=== PATIENT | male | born 1965 | race Caucasian/White ===

== ENCOUNTER 2016-11-12 13:16 | Emergency (ER) | payer OTHER ==
[2016-11-12 13:22] VITALS: BP 146/91; PULSE 95; TEMP 98.5; BMI 26.4
[2016-11-12] MEDS ORDERED: DIPHTH,PERTUSS(ACELL),TET 0.5 ML DISP.SYRIN IM ONE (13:26)
--- NOTE | 2016-11-12 13:39 | PDOC ---
Attending Attestation - Resident Resident Name: KaseyJuan - ED Attending Attestation I have performed the following: I have examined & evaluated the patient, The case was reviewed & discussed with the resident, I agree w/resident's findings & plan, Exceptions are as noted - HPI HPI: 11/12/16 13:34 51 yo M cut his left middle finger was cutting vegetables, and slipped. laceration to distal middle finger. pt is righthand dominant. happened last pm at 10 pm. last tetanus unknown. came today because this am when he took dressing off, was bleeding. no f/c no new numbness or tingling. pt is currently not working. - Physicial Exam PE: 11/12/16 13:37 awake alert nAD. lungs clear bilaterally. heart RRR no mrg. abd soft NT ND. skin: left middle finger with laceration, linear 1.5 cm to distal phalynx. no active bleeding distally n/v intact. flex,/ ext tendons intact at pip, dip. nuero: sensation and strenth normal. - Medical Decision Making 11/12/16 13:38 due to delay in presenation >12 hours, unable to suture finger due to risk of infection. plan sterile dressing bacitracin, doxycycline, and wrap. dc home tetanus given.
[2016-11-12] MEDS ORDERED: DOXYCYCLINE HYCLATE 100 MG CAPSULE PO ONE ×2 (13:40)
--- NOTE | 2016-11-12 14:06 | PDOC ---
History of Present Illness - General Chief Complaint: Laceration Stated Complaint: I CUT MY FINGER Time Seen by Provider: 11/12/16 13:21 - History of Present Illness Initial Comments: 11/12/16 13:45 Patient is a 51 year old right hand dominant male who presents with a left finger laceration. The patient states that he was cutting vegetables yesterday evening when he accidentally cut the tip of his 3rd digit. He reported significant bleeding with the initial cut. He states that he cleaned the wound with hydrogen peroxide and covered it with a bandaid. He states that earlier this morning, he removed the bandaid and the finger began bleeding once again prompting his visit to the ED today. He reports that his last tetanus shot was over 15 years ago. He denies any fevers, chills, numbness or tingling. Past History - Past Medical History Allergies/Adverse Reactions: Allergies Allergy/AdvReac Type Severity Reaction Status Date / Time Penicillins AdvReac Verified 11/12/16 13:17 Home Medications: Ambulatory Orders Doxycycline Hyclate 100 mg PO BID #10 capsule 11/12/16 Other medical history: HEP C - Psycho/Social/Smoking Cessation Hx Anxiety: No Suicidal Ideation: No Smoking History: Smoker current status UNK Hx Alcohol Use: Yes Drug/Substance Use Hx: No Substance Use Type: Alcohol, Marijuana Review of Systems - Review of Systems Constitutional: No: Chills, Fever Respiratory: No: Cough, Shortness of Breath Cardiac (ROS): No: Chest Pain, Palpitations ABD/GI: No: Constipated, Diarrhea, Nausea, Vomiting : No: Dysuria Integumentary: No: Rash Neurological: No: Headache, Numbness, Tingling, Weakness *Physical Exam - Vital Signs Last Vital Signs Temp Pulse Resp BP Pulse Ox 98.5 F 95 H 16 146/91 100 11/12/16 13:16 11/12/16 13:16 11/12/16 13:16 11/12/16 13:16 11/12/16 13:16 - Physical Exam Comments: 11/12/16 14:12 General Appearance: Nourished. No Apparent Distress Respiratory/Chest: Lungs Clear, Normal Breath Sounds. No Crackles, Rales, Rhonchi, Wheezing Cardiovascular: Regular Rhythm, Regular Rate. No Murmur, Gallop/S3, Gallop/S4 Gastrointestinal/Abdominal: Normal Bowel Sounds, Soft. No Guarding, Rebound, Tenderness Extremity: Normal Capillary Refill, 1 cm laceration to the radial aspect of the 3rd digit not crossing a joint. Sensation to light touch and temperature intact. Normal range of motion. Integumentary: Normal Color, Dry, Warm Neurologic: Fully Oriented, Alert, Normal Mood/Affect, Normal Response ED Treatment Course - Medications Given in the ED: ED Medications Discontinued Medications Generic Name Dose Route Start Last Admin Trade Name Sofia PRN Reason Stop Dose Admin Diphtheria/Tetanus/Acell Pertussis 0.5 ml 11/12/16 13:26 11/12/16 13:38 Boostrix - IM 11/12/16 13:27 0.5 ml .ONCE ONE Administration Medical Decision Making - Medical Decision Making 11/12/16 15:02 Patient is a 51 year old male who presents with a left 3rd digit laceration. Given that the patient sustained the laceration over 6 hours ago, he is not eligible to have sutures placed to reapproximate the wound. We will clean the injury and apply bacitracin with a non-stick dressing and wrap the wound. We will also update the patient's tetanus status as well as provide prophylactic antibiotics. 11/12/16 15:04 Wound was dressed approriately and the patient was provided proper wound care instructions. The patient voiced understanding of the plan and is agreeable. We feel comfortable discharging the patient home. *DC/Admit/Observation/Transfer Diagnosis at time of Disposition: Laceration of finger - Discharge Dispostion Disposition: HOME Condition at time of disposition: Stable - Prescriptions Prescriptions: Doxycycline Hyclate 100 mg PO BID #10 capsule - Referrals - Patient Instructions Printed Discharge Instructions: DI for Minor Laceration Additional Instructions: keep clean and dry for24 hours. clean with mild soap and water. for rebleeding, apply pressure for 5 - 7 minutes. you can apply bacitracin ointment twice dialy to wound, which can be purchased over the counter at any pharmacy. return for redness swelling. or any concerns or signs of infection. you should take doxycycline 100 mg twice daily x 5 days. you were given a tetanus shot today, so you will be covered for 5 years. followup with your regular doctor as needed. - Post Discharge Activity - Attestations Physician Attestion: 11/12/16 15:06 Dr. Juan Soto, attest that this document has been prepared under my direction and personally reviewed by me in its entirety. I further attest, that it accurately reflects all work, treatment, procedures and medical decision -making performed by me.
== END 2016-11-12 13:55 | disposition home or self-care (01) ==
LOC: FER 13:16
PROC: 3E0234Z Introduction of Serum, Toxoid and Vaccine into Muscle, Percutaneous Approach (ICD-10-PCS; principal; 2016-11-12)
DX: S61.213A Laceration without foreign body of left middle finger without damage to nail, initial encounter (principal); W26.0XXA Contact with knife, initial encounter; Y93.G1 Activity, food preparation and clean up; Y92.9 Unspecified place or not applicable; B19.20 Unspecified viral hepatitis C without hepatic coma
CPT/HCPCS: 90471; 90715; 99282-25

== ENCOUNTER 2016-11-19 19:07 | Emergency (ER) | payer OTHER ==
--- NOTE | 2016-11-19 19:32 | PDOC ---
Suture Removal/Wound Check HPI - History of Present Illness Chief Complaint: Revisit,Wound Recheck Stated Complaint: WOUND CHECK LEFT MIDDLE FINGER Time Seen by Provider: 11/19/16 19:12 - Onset of Previous Treatment Comment:: This 51-year-old man with no previous history of wound healing problems/ resistant organism colonization or infection was seen here 11/12/16 with left middle finger laceration. Presentation was delayed (greater than 12 hours) after patient had cut the finger while preparing food in his kitchen. Wound was cleansed/dressed and patient started on doxycycline 100 mg twice a day for 5 days (patient states that he has penicillin ALLERGYwas told that he had gastrointestinal symptoms after penicillin as a child. No history of rash or anaphylactic symptoms) Patient states that he has been taking his doxycycline. He notes significant gastrointestinal discomfort after each dose, especially after sun exposure. He has not had any rash/airway edema or respiratory symptoms. Over the last few days, he is noted increased edema and erythema of the area around the laceration. He has had brief episodes of bleeding but no purulent discharge. There has been no red streaking or pain with flexion/extension of the finger. He denies fever/chills. Past History - Past Medical History Allergies/Adverse Reactions: Allergies Penicillins Adverse Reaction (Verified 11/12/16 13:17) Home Medications: Ambulatory Orders Doxycycline Monohydrate [Monodox] 100 mg PO BID #10 capsule 11/13/16 Cephalexin Monohydrate [Keflex -] 500 mg PO Q8H #15 capsule 11/19/16 - Immunization History Tetanus Status: Less than 5 years - Social History Smoking Status: Smoker current status UNK Suture Removal/Wound Check PE - Physical Exam Laceration/Wound Check Symptoms: reports: Redness Comments: GENERAL: Adult male, alert and oriented 3, in no acute distress ENT Dry mucous membranes. LUNGS: Breath sounds equal, clear to auscultation bilaterally. No wheezes, and no crackles. HEART:Regular rate and rhythm, normal S1 and S2 without murmur, rub or gallop. EXTREMITIES: Left third finger2.5 cm healing horizontal laceration of the distal phalanx, nonbleeding/no purulent discharge/nonfluctuant 2 cm surrounding erythema/edema without fluctuance No lymphangitic streaking/no DIP or PIP joint inflammation No pain on passive or active flexion/extension of the digit Remainder of the extremity exam is normal. NEUROLOGICAL: Cranial nerves II through XII grossly intact. Normal speech. No focal neurological deficits. *Review of Systems - Review of Systems Able to Perform ROS?: Yes Comments:: 12 point review of systems is negative except for what is noted in the history of present illness Medical Decision Making - Medical Decision Making This 51-year-old man with a history of laceration of the distal phalanx of the left third finger, presented one week ago more than 12 hours after sustaining a laceration. Wound was dressed, tetanus prophylaxis given and patient started on doxycycline Patient reports erythema/edema around the wound. On exam, there is no fluctuance or purulent drainage. However, the area around the wound is inflamed. Therefore, patient will be kept on antibiotics with follow-up with his general doctor. Since he has had significant gastrointestinal discomfort after doxycycline doses, we will switch to Keflex (patient did not have anaphylactic ALLERGIC reaction to penicillin). First dose of 500 mg will be given here in the ER. Patient should follow-up with his own general doctor; he should report to the emergency room if he has red streaking/increased pain/swelling/fever and especially if he has increased pain on movement of the finger. *DC/Admit/Observation/Transfer Diagnosis at time of Disposition: Cellulitis of finger of left hand - Discharge Dispostion Disposition: HOME Condition at time of disposition: Stable - Prescriptions Prescriptions: Cephalexin Monohydrate [Keflex -] 500 mg PO Q8H #15 capsule - Referrals Referrals: Romelia Ruelas MD [Primary Care Provider] - 1 week - Patient Instructions Printed Discharge Instructions: DI for Wound Infection Additional Instructions: Stop doxycycline Keep in cool environment/drink plenty of water Begin Keflex 500 mg 3 times a day for 5 days Continue wound care as previously Elevate left hand as much as possible Return to ER if you have worsening pain/swelling/redness or develop fever Follow-up with your general doctor within the next 5 days
[2016-11-19] MEDS ORDERED: CEPHALEXIN MONOHYDRATE 500 MG CAPSULE (UD) ONE (19:49)
[2016-11-19] MEDS ORDERED: CEPHALEXIN MONOHYDRATE 500 MG CAPSULE (UD) PO ONE (19:54)
[2016-11-19 19:55] VITALS: BP 135/90; PULSE 110; TEMP 98.6; BMI 26.2
== END 2016-11-19 19:55 | disposition home or self-care (01) ==
LOC: FER 19:07
DX: Z48.01 Encounter for change or removal of surgical wound dressing (principal)
CPT/HCPCS: 99281-25

== ENCOUNTER 2017-09-19 11:16 | Inpatient (IN) | payer OTHER ==
[2017-09-19] MEDS ORDERED: chlordiazePOXIDE HCL 25 MG CAPSULE PO ONE ×2 (11:21→14:10)
--- NOTE | 2017-09-19 11:29 | PDOC ---
History of Present Illness - General Chief Complaint: Rectal Bleed Stated Complaint: ANEMIA Time Seen by Provider: 09/19/17 11:19 - History of Present Illness Initial Comments: 09/19/17 15:01 Chief complaint: Lower abdominal pain and diarrhea History of present illness: Intermittent crampy lower abdominal pain associated with loose [place] stools. No marco melena or blood. Saw primary care physician who noted H&H of 7 and 24, and referred to the emergency room for further workup. Review of systems: Denies chest pain, shortness of breath, vomiting. Denies visual or focal neurologic symptoms, lightheadedness or dizziness, unsteadiness of gait Past medical history: Hepatitis C treated several years ago, virus now undetectable. Heavy alcohol abuse. Hemorrhoids in the past. No known cardiac disease, other GI disease, or diabetes. Social history: Tobacco and alcohol abuse, but no known drug history. 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 Marked pallor is present Afebrile, vital signs stable PERRLA, fundi benign, conjunctivae pale, ENT clear Neck supple without bruit mass or nodes Lungs clear with full breath sounds bilaterally CV: Mildly tachycardic 102/m, no murmurs rubs or gallops, pulses full. No JVD or edema Abdomen mildly distended but soft without mass or organomegaly. There is mild tenderness over the entire mid and lower abdomen without localization. No guarding or rebound Rectal exam: No masses or tenderness. No stool present in the ampulla, but small amount of serosanguineous fluid present on the fingertip. Neurological C2 to 12 intact. Strength full and symmetric. No focal sensory or motor deficits. Gait stable and unimpaired. No asterixis No CCE Skin clear, no rash, adequate turgor and wet mucous membranes. No telangiectasias or palmar erythema. Impression: GI bleed, anemia, probably stabilized. Most likely upper GI in origin and related to alcohol consumption. Plan: Type and cross, CBC and chemistries, monitoring and observation. GI consultation. Past History - Past Medical History Allergies/Adverse Reactions: Allergies Allergy/AdvReac Type Severity Reaction Status Date / Time Penicillins AdvReac Verified 09/19/17 11:20 Home Medications: Ambulatory Orders Fexofenadine/Pseudoephedrine [Melissa-D 12 Hour Tablet] 1 each PO DAILY - Immunization History TDAP Vaccination: Yes (11/13/2016) - Suicide/Smoking/Psychosocial Hx Smoking History: Smoker current status UNK Have you smoked in the past 12 months: Yes 'Breaking Loose' booklet given: 11/19/16 Hx Alcohol Use: Yes Drug/Substance Use Hx: Yes Substance Use Type: Alcohol, Marijuana ED Treatment Course - LABORATORY CBC & Chemistry Diagram: 09/19/17 11:19 09/19/17 12:49 Medical Decision Making - Medical Decision Making 09/19/17 13:38 H&H is 7 and 23, seemingly stable from yesterday, when it was 7 and 24 done by his primary physician. Hemodynamically stable with a stable blood pressure No significant abdominal pain. Small amount of serosanguineous fluid on rectal exam. No bowel movements recently. Abdomen soft and nontender. 09/19/17 15:00 Blood for type and screen. Admitted to hospitalist at [facility], consultation arranged with Dr. Chiang, GI. Consider transfusion if H&H continues to drop. Otherwise GI workup. *DC/Admit/Observation/Transfer Diagnosis at time of Disposition: GI bleed Qualifiers: GI bleed type/associated pathology: unspecified gastrointestinal hemorrhage type Qualified Code(s): K92.2 - Gastrointestinal hemorrhage, unspecified - Discharge Dispostion Decision to Admit order: Yes - Referrals - Patient Instructions - Post Discharge Activity
[2017-09-19] MEDS ORDERED: PANTOPRAZOLE SODIUM 40 MG in SODIUM CHLORIDE 100 ML IVPB ONE (12:08)
[2017-09-19] MEDS ORDERED: chlordiazePOXIDE HCL 25 MG CAPSULE ONE ×2 (12:55→14:34)
[2017-09-19] MEDS ORDERED: PANTOPRAZOLE SODIUM 40 MG VIAL ONE (12:56)
[2017-09-19 13:07] LABS: INR 1.13 (0.82-1.09); PROTHROMBIN TIME (PATIENT) 12.6 SEC (10.2-13.0)
[2017-09-19 13:08] LABS: BASO % 0.7 % (0-2.0); EOS % 2.6 % (0-4.5); HEMOGLOBIN 7.1 GM/dl (11.7-16.9); LYMPH % 13.5 % (8-40); MCH 22.4 pg (25.7-33.7); MCHC 30.6 g/dl (32.0-35.9); MEAN CELL VOLUME 73.3 fl (80-96); MONO % 13.3 % (3.8-10.2); NEUT % 69.9 % (42.8-82.8); PLATELET COUNT 364 K/MM3 (134-434); RBC 3.14 M/mm3 (4.00-5.60); RDW 19.4 % (11.9-15.9); WHITE BLOOD COUNT 7.3 K/mm3 (4.0-10.8)
[2017-09-19 13:10] LABS: ADD RBC MORPHOLOGY YES
[2017-09-19 13:12] LABS: ALBUMIN 2.3 g/dl (3.5-5.0); ALK PHOS 82 U/L (32-92); ANION GAP 9 (8-16); BILIRUBIN,TOTAL 1.4 mg/dl (0.2-1.0); BLOOD UREA NITROGEN 12 mg/dl (7-18); CALCIUM 7.6 mg/dl (8.4-10.2); CHLORIDE 99 mmol/L (98-107); CO2 23 mmol/L (22-28); GLUCOSE,RANDOM 120 mg/dl (74-106); POTASSIUM 3.8 mmol/L (3.5-5.1); SGOT/AST 36 U/L (10-42); SGPT/ALT 22 U/L (10-40); SODIUM 131 mmol/L (136-145); TOT PROT 6.4 g/dl (6.4-8.3)
[2017-09-19 13:27] LABS: CREATININE < 0.8 mg/dl (0.6-1.3)
[2017-09-19 14:41] LABS: ANISOCYTOSIS 1+
[2017-09-19 14:48] LABS: PH,URINE 6.5 (4.5-8); URINE APPEARANCE Clear; URINE BILIRUBIN Negative (NEGATIVE); URINE GLUCOSE (UA) Negative (NEGATIVE); URINE KETONE Negative (NEGATIVE); URINE LEUK ESTERASE Negative (NEGATIVE); URINE NITRITE Negative (NEGATIVE); URINE PROTEIN Negative (NEGATIVE)
[2017-09-19 14:49] LABS: URINE COLOR AMBER
[2017-09-19] MEDS ORDERED: THIAMINE HCL 200 MG/2 ML VIAL IM ONE (15:35)
[2017-09-19] MEDS ORDERED: THIAMINE HCL 200 MG/2 ML VIAL ONE (16:10)
--- NOTE | 2017-09-19 18:50 | HP ---
CHIEF COMPLAINT: " Was sent by his PCP for blood transfusion for symptomatic anemia" PCP: Dr. Ruelas HISTORY OF PRESENT ILLNESS: Patient is a 52 year old male was sent by his PCP for blood transfusion for symptomatic anemia. As per the patient, he went to his PCP for a physical yesterday and got a call from the doctor today recommending him to come to the ED for blood transfusion. Patient reports that he has been feeling very weak and tired since 3 months, getting worse since a couple of weeks. Also complaining of having diarrhoea since few weeks, 6-7 episodes/day fowl smelling, no blood noticed, passing a lot of gas. Has never done an endoscopy or colonoscopy in the past. Has chronic back pain for which he has been taking Aleve daily for few weeks. Denies chest pain, sob, palpitation, headache, loc, abdominal pain, nausea or vomiting. Bladder habit normal. Sleep normal. Appetite decreased but drinking plenty of fluids. Patient initially went to [facility] ED and was transferred here for a possible colonoscopy/EGD. ER course was notable for: (1) Afebrile, tachycardic to 108 bpm, Hypotensive, H/H 7.05/01 (2) Librium, IV fluids Recent Travel: None PAST MEDICAL HISTORY: Hepatitis C (completed treatment); Alcohol abuse; Hemorrhoids; BCC PAST SURGICAL HISTORY: Moh's surgery for BCC Social History: Smoking: Quit 2 yrs ago, smoked for 4-5 yrs; 1 pack/day Alcohol: Was sober/AA for 20 yrs and started drinking daily- 3-4 drinks of vodka /day Drugs: Denies Family History: Non contributory Allergies Penicillins Adverse Reaction (Verified 09/19/17 11:20) HOME MEDICATIONS: Home Medications Medication Instructions Recorded Fexofenadine/Pseudoephedrine 1 each PO DAILY 09/19/17 [Melissa-D 12 Hour Tablet] REVIEW OF SYSTEMS CONSTITUTIONAL: Absent: fever, chills, diaphoresis, generalized weakness, malaise, loss of appetite, weight change HEENT: Absent: rhinorrhea, nasal congestion, throat pain, throat swelling, difficulty swallowing, mouth swelling, ear pain, eye pain, visual changes CARDIOVASCULAR: Absent: chest pain, syncope, palpitations, irregular heart rate, lightheadedness , peripheral edema RESPIRATORY: Absent: cough, shortness of breath, dyspnea with exertion, orthopnea, wheezing, stridor, hemoptysis GASTROINTESTINAL: Absent: abdominal pain, abdominal distension, nausea, vomiting, diarrhea, constipation, melena, hematochezia GENITOURINARY: Absent: dysuria, frequency, urgency, hesitancy, hematuria, flank pain, genital pain MUSCULOSKELETAL: Absent: myalgia, arthralgia, joint swelling, back pain, neck pain SKIN: Absent: rash, itching, pallor HEMATOLOGIC/IMMUNOLOGIC: Absent: easy bleeding, easy bruising, lymphadenopathy, frequent infections ENDOCRINE: Absent: unexplained weight gain, unexplained weight loss, heat intolerance, cold intolerance NEUROLOGIC: Absent: headache, focal weakness or paresthesias, dizziness, unsteady gait, seizure, mental status changes, bladder or bowel incontinence PSYCHIATRIC: Absent: anxiety, depression, suicidal or homicidal ideation, hallucinations. PHYSICAL EXAMINATION Vital Signs - 24 hr 09/19/17 09/19/17 09/19/17 11:18 14:30 17:15 Temperature 99.3 F 99.6 F 98.6 F Pulse Rate 113 H 108 H Pulse Rate [ 110 H Left Radial] Respiratory 20 18 14 Rate Blood Pressure 112/77 108/70 Blood Pressure 106/63 [Left Arm] O2 Sat by Pulse 95 96 96 Oximetry (%) GENERAL: Middle aged male, lying comfortably in bed, Awake, alert, and fully oriented, in no acute distress. HEAD: Normal with no signs of trauma. EYES: EOM intact, Pallor +, no icterus. EARS, NOSE, THROAT: Ears normal. Dry mucous membranes. NECK: Supple. LUNGS: B/L Breath sounds equal, clear to auscultation bilaterally. No wheezes, and no crackles. No accessory muscle use. HEART: Tachycardic, Regular rate and rhythm, normal S1 and S2 without murmur. ABDOMEN: Soft, nontender, not distended, normoactive bowel sounds, no guarding, no rebound, no masses. No hepatomegaly or splenomegaly. MUSCULOSKELETAL: Normal range of motion at all joints. No bony deformities or tenderness. No CVA tenderness. UPPER EXTREMITIES: 2+ pulses, warm, well-perfused. No cyanosis. No clubbing. No peripheral edema. LOWER EXTREMITIES: 2+ pulses, warm, well-perfused. No calf tenderness. No peripheral edema. NEUROLOGICAL: No facial droop, ext tremors + Cranial nerves II-XII intact. Normal speech. Gait not observed. PSYCHIATRIC: Cooperative. Good eye contact. Appropriate mood and affect. SKIN: Warm, dry, normal turgor, no rashes or lesions noted, normal capillary refill. Laboratory Results - last 24 hr 09/19/17 09/19/17 09/19/17 11:19 11:19 12:25 WBC 7.3 RBC 3.14 L Hgb 7.1 L Hct 23.0 L MCV 73.3 L MCH 22.4 L MCHC 30.6 L RDW 19.4 H Plt Count 364 MPV 7.0 L Absolute Neuts (auto) 5.0 Neutrophils % 69.9 Lymphocytes % 13.5 Monocytes % 13.3 H Eosinophils % 2.6 Basophils % 0.7 Hypochromia 2+ Anisocytosis 1+ Microcytosis Few PT with INR INR Sodium Potassium Chloride Carbon Dioxide Anion Gap BUN Creatinine Creat Clearance w eGFR Random Glucose Calcium Total Bilirubin AST ALT Alkaline Phosphatase Creatine Kinase Troponin I Total Protein Albumin Lipase Urine Color Urine Appearance Urine pH Ur Specific [place] Urine Protein Urine Glucose (UA) Urine Ketones Urine Blood Urine Nitrite Urine Bilirubin Urine Urobilinogen Ur Leukocyte Esterase Stool Occult Blood Positive Blood Type O POSITIVE Antibody Screen Negative 09/19/17 09/19/17 09/19/17 12:49 12:49 12:49 WBC RBC Hgb Hct MCV MCH MCHC RDW Plt Count MPV Absolute Neuts (auto) Neutrophils % Lymphocytes % Monocytes % Eosinophils % Basophils % Hypochromia Anisocytosis Microcytosis PT with INR 12.6 INR 1.13 Sodium 131 L Potassium 3.8 Chloride 99 Carbon Dioxide 23 Anion Gap 9 BUN 12 Creatinine < 0.8 Creat Clearance w eGFR > 60 Random Glucose 120 H Calcium 7.6 L Total Bilirubin 1.4 H AST 36 ALT 22 Alkaline Phosphatase 82 Creatine Kinase 62 Troponin I < 0.03 Total Protein 6.4 Albumin 2.3 L Lipase Urine Color Urine Appearance Urine pH Ur Specific [place] Urine Protein Urine Glucose (UA) Urine Ketones Urine Blood Urine Nitrite Urine Bilirubin Urine Urobilinogen Ur Leukocyte Esterase Stool Occult Blood Blood Type Antibody Screen 09/19/17 09/19/17 12:49 14:40 WBC RBC Hgb Hct MCV MCH MCHC RDW Plt Count MPV Absolute Neuts (auto) Neutrophils % Lymphocytes % Monocytes % Eosinophils % Basophils % Hypochromia Anisocytosis Microcytosis PT with INR INR Sodium Potassium Chloride Carbon Dioxide Anion Gap BUN Creatinine Creat Clearance w eGFR Random Glucose Calcium Total Bilirubin AST ALT Alkaline Phosphatase Creatine Kinase Troponin I Total Protein Albumin Lipase 74 Urine Color [place] Urine Appearance Clear Urine pH 6.5 Ur Specific [place] 1.020 Urine Protein Negative Urine Glucose (UA) Negative Urine Ketones Negative Urine Blood Negative Urine Nitrite Negative Urine Bilirubin Negative Urine Urobilinogen 1.0 Ur Leukocyte Esterase Negative Stool Occult Blood Blood Type Antibody Screen ASSESSMENT/PLAN: Patient is a 52 year old male with significant past medical history of Hepatitis C (completed treatment); Alcohol abuse; Hemorrhoids; BCC was sent by his PCP for blood transfusion for symptomatic anemia. # Symptomatic anemia requiring Blood transfusion likely secondary to UGI bleed H/H 7.05/01; stool occult positive; Patient is not actively bleeding NPO Type and screen Transfuse one unit of blood, repeat CBC after an hour, transfuse another unit if needed IV NS @ 100 mls/hr Dr. Chiang consulted # UGI bleed vs NSAID induced GI bleed NPO IV fluids Watch for active bleeding Never had a colonoscopy or endoscopy in the past Alcohol cessation/ NSAID cessation # Hyponatremia likely secondary to poor PO intake Will hydrate with IV fluids. Repeat BMP in the AM. # Alcohol abuse Drinks alcohol daily Received Librium in the ED CIWA score - 2 at this time; patient is not withdrawing. Start Librium protocol if he starts withdrawing Alcohol cessation counseling # Diarrhoea No recent h/o abx use Could be viral vs infectious Stool cultures/ova/parasite # Hep C Treatment completed in the year 1999 with undetectable viral load. # FEN IV NS @ 100mls/hr Electrolytes WNL NPO # Prophylaxis For DVT: ON Scd's, no heparin given at this time given the anemia For GI: On Protonix 40mg IV BID # Code Status: Full Code # Dispo: Admitted in Tele. Duration of stay unknown. Illness, Investigation and Plan of care explained to the patient and his family. They verbalized understanding. Case discussed with Dr. Pierce Visit type - Emergency Visit Emergency Visit: Yes ED Registration Date: 09/19/17 Care time: The patient presented to the Emergency Department on the above date and was hospitalized for further evaluation of their emergent condition. - New Patient This patient is new to me today: Yes Date on this admission: 09/19/17 - Critical Care Critical Care patient: No Hospitalist Screening - Colonoscopy Questionnaire Colonoscopy Questionnaire: Colonoscopy Questionnaire - Patient: 50 - 75 years old and never had a screening colonoscopy: Unknown History of colon or rectal polyps, or CA: Unknown History of IBD, Crohn's disease or UC: Unknown History of abdominal radiation therapy as a child: Unknown - Relative: 1 with colon or rectal CA, or polyps at age 60 or younger: Unknown Colon or rectal CA diagnosed at age 45 or younger: Unknown Multiple relatives with colon or rectal CA: Unknown - Outcome: Screening Result: Negative Screen
[2017-09-19] MEDS: SODIUM CHLORIDE 1,000 ML IV SCH (19:30)
--- NOTE | 2017-09-19 19:34 | PN ---
Teaching Attending Note Name of Resident: Elyssa Centeno ATTENDING PHYSICIAN STATEMENT I saw and evaluated the patient. I reviewed the resident's note and discussed the case with the resident. I agree with the resident's findings and plan as documented. SUBJECTIVE: Patient is a 52 year old man with his of alcohol abuse, chronic back pain ( takes Alleve daily) and hepatitis C disease (treated with undetectable virus now ) presenting with weakness, severe anemia and loose bowel movement. has intermittent crampy lower abdominal pain associated with loose stools but no melena or blood. Saw primary care physician who noted hematocrit of 24, and referred to the emergency room for further workup. He went to [place] [facility] where his stool hemoccult test was positive and he was then transferred here for blood transfusion and EGD/colonoscopy. He denies chest pain, shortness of breath, or vomiting. OBJECTIVE: Alert, weak and in no acute respiratory distress. Vital Signs Period Temp Pulse Resp BP Sys/Orantes Pulse Ox Last 24 Hr 98.6 F-99.6 F 108-113 14-20 106-112/63-77 95-96 HEENT: No Jaundice, eye redness or discharge; Pallor; PERRLA, EOMI. Normocephalic, atraumatic. External ears are normal and hearing is grossly intact. No nasal discharge. Neck: Supple, nontender. No palpable adenopathy or thyromegaly. No JVD Chest: Good effort. Clear to auscultation and percussion. Heart: Tachycardia. No S3, rub or murmur Abdomen: Not distended, soft, nontender and no HSM. No rebound or guarding. Normoactive bowel sounds. Ext: Peripheral pulses intact. No leg edema. Skin: Warm and dry. No petechiae, rash or ecchymosis. Neuro: Alert. Oriented x3. CN 2-12 grossly intact. Sensation grossly intact in all four extremities and DTR are symmetric. Current Medications Generic Name Dose Route Start Last Admin Trade Name Freq PRN Reason Stop Dose Admin Sodium Chloride 1,000 mls @ 100 mls/hr 09/19/17 19:30 Normal Saline - IV ASDIR DEMETRICE Pantoprazole Sodium 40 mg 09/19/17 22:00 Protonix Iv IVPUSH BID DEMETRICE Home Medications Medication Instructions Recorded Fexofenadine/Pseudoephedrine 1 each PO DAILY 09/19/17 [Melissa-D 12 Hour Tablet] Abnormal Lab Results 09/19/17 09/19/17 09/19/17 11:19 11:19 12:49 RBC 3.14 L Hgb 7.1 L Hct 23.0 L MCV 73.3 L MCH 22.4 L MCHC 30.6 L RDW 19.4 H MPV 7.0 L Monocytes % 13.3 H Sodium 131 L Random Glucose 120 H Calcium 7.6 L Total Bilirubin 1.4 H Albumin 2.3 L Crossmatch See Detail ASSESSMENT AND PLAN: 1. GI Bleeding - Patient with severe low MCV anemia due to GI bleeding. Precise site of bleeding is unclear. In the absence of overt features of advanced liver disease/portal hypertension it is likely that NSAID-induced ulcers is the most probable cause of bleeding. Will get a plain CT of his abdomen, give IV NS to correct hypotension, protonix 40 mg IV q 12 hours and transfuse 1 unit PRBC. Subsequently will benefit from Venofer 500mg IV X two doses to correct iron deficiency - thus enabling him to increase his red cell mass quickly and thus preempt future blood transfusions. Keep him NPO for EGD in am. CXR shows no acute pathology. Will get EKG. Patient counseled to avoid NSAIDS. 2. Alcohol abuse - Will implement [facility] alcohol withdrawal protocol, fall precautions, give him folic acid and then thiamine once he gets some calories. Will refer to alcohol detox upon discharge. 3. Hyponatremia -Likely due to ingestion of excess "free water" from alcohol and not eating enough to provide solutes for excretion of obligatory free water. Will restrict free water intake and provide adequate nutritional support. 4. DVT prophylaxis - SCD 5. Advance directives - Full code
[2017-09-19] MEDS ORDERED: chlordiazePOXIDE HCL 25 MG CAPSULE PO PRN (21:12)
[2017-09-19] MEDS: PANTOPRAZOLE SODIUM 40 MG VIAL IVPUSH SCH (22:29)
[2017-09-19] MEDS: chlordiazePOXIDE HCL 25 MG CAPSULE PO SCH (22:30)
[2017-09-20 08:56] LABS: ANION GAP 8 (8-16); BLOOD UREA NITROGEN 8 mg/dL (7-18); CALCIUM 7.5 mg/dL (8.5-10.1); CHLORIDE 107 mmol/L (98-107); CO2 24 mmol/L (21-32); CREATININE 0.6 mg/dL (0.7-1.3); GLUCOSE,RANDOM 103 mg/dL (74-106); POTASSIUM 3.6 mmol/L (3.5-5.1); SODIUM 139 mmol/L (136-145)
[2017-09-20 09:01] LABS: HEMATOCRIT 22.2 % (35.4-49); MCH 23.2 pg (25.7-33.7); PLATELET COUNT 290 K/MM3 (134-434); RBC 2.96 M/mm3 (4.00-5.60); WHITE BLOOD COUNT 4.3 K/mm3 (4.0-10.0)
[2017-09-20 10:16] LABS: HEMOGLOBIN 6.9 GM/dL (11.7-16.9)
[2017-09-20] MEDS: PANTOPRAZOLE SODIUM 40 MG VIAL IVPUSH SCH ×2 (10:35→22:02)
--- NOTE | 2017-09-20 11:12 | EKG ---
Test Reason : Blood Pressure : / mmHG Vent. Rate : 098 BPM Atrial Rate : 098 BPM P-R Int : 160 ms QRS Dur : 106 ms QT Int : 416 ms P-R-T Axes : 041 050 063 degrees QTc Int : 531 ms NORMAL SINUS RHYTHM PROLONGED QT ABNORMAL ECG WHEN COMPARED WITH ECG OF 19-SEP-2017 15:19, NO SIGNIFICANT CHANGE WAS FOUND Confirmed by OMAR MILLER MD ([id number]) on 09/20/2017 11:12:07 AM Referred By: [facility] PEREZ [facility] Confirmed By:OMAR MILLER MD
--- NOTE | 2017-09-20 11:13 | PN ---
Physical Exam: SUBJECTIVE: Patient seen and examined. Pt said he feels stronger. Received one unit of blood. No fevers, no abdominal pain or nausea. OBJECTIVE: Vital Signs Period Temp Pulse Resp BP Sys/Orantes Pulse Ox Last 24 Hr 98.5 F-99.6 F 106-113 14-20 106-112/62-77 92-96 Vital Signs Temp 98.5 F 09/19/17 23:00 Pulse 106 H 09/19/17 19:26 Resp 20 09/20/17 09:00 BP 110/62 09/19/17 19:26 Pulse Ox 92 L 09/20/17 09:00 Intake & Output 09/19/17 09/20/17 09/20/17 23:59 11:59 23:59 Intake Total 360 Balance 360 Weight 89.358 kg Intake: Oral 360 Other: Voiding Method Urinal Urinal # Unmeasured Voids Void 1 Height 1.78 m Body Mass Index (BMI) 28.3 Vital Signs Temp 98.5 F 09/19/17 23:00 Pulse 106 H 09/19/17 19:26 Resp 20 09/20/17 09:00 BP 110/62 09/19/17 19:26 Pulse Ox 92 L 09/20/17 09:00 Intake & Output 09/19/17 09/20/17 09/20/17 23:59 11:59 23:59 Intake Total 360 Balance 360 Weight 89.358 kg Intake: Oral 360 Other: Voiding Method Urinal Urinal # Unmeasured Voids Void 1 Height 1.78 m Body Mass Index (BMI) 28.3 GENERAL: The patient is awake, alert, and fully oriented, in no acute respiratory or painful distress. HEAD: Normal with no signs of trauma. EYES: pale conjunctiva LUNGS: Breath sounds equal, clear to auscultation bilaterally, no wheezes, no crackles HEART: tachycardic, S1, S2 without murmur, rub or gallop. ABDOMEN: Firm, nontender, enlarged, normoactive bowel sounds, no guarding EXTREMITIES: 2+ pulses, warm, well-perfused, no edema. NEUROLOGICAL:AAOx3, fine tremors on outstretched arms bilaterally CBC, BMP 09/20/17 05:27 09/20/17 06:00 Laboratory Results - last 24 hr 09/19/17 09/19/17 09/19/17 11:19 11:19 12:25 WBC 7.3 RBC 3.14 L Hgb 7.1 L Hct 23.0 L MCV 73.3 L MCH 22.4 L MCHC 30.6 L RDW 19.4 H Plt Count 364 MPV 7.0 L Absolute Neuts (auto) 5.0 Neutrophils % 69.9 Lymphocytes % 13.5 Monocytes % 13.3 H Eosinophils % 2.6 Basophils % 0.7 Hypochromia 2+ Anisocytosis 1+ Microcytosis Few PT with INR INR Sodium Potassium Chloride Carbon Dioxide Anion Gap BUN Creatinine Creat Clearance w eGFR Random Glucose Calcium Ferritin Total Bilirubin AST ALT Alkaline Phosphatase Creatine Kinase Troponin I Total Protein Albumin Lipase Urine Color Urine Appearance Urine pH Ur Specific [place] Urine Protein Urine Glucose (UA) Urine Ketones Urine Blood Urine Nitrite Urine Bilirubin Urine Urobilinogen Ur Leukocyte Esterase Stool Occult Blood Positive Blood Type O POSITIVE Antibody Screen Negative Crossmatch See Detail 09/19/17 09/19/17 09/19/17 12:49 12:49 12:49 WBC RBC Hgb Hct MCV MCH MCHC RDW Plt Count MPV Absolute Neuts (auto) Neutrophils % Lymphocytes % Monocytes % Eosinophils % Basophils % Hypochromia Anisocytosis Microcytosis PT with INR 12.6 INR 1.13 Sodium 131 L Potassium 3.8 Chloride 99 Carbon Dioxide 23 Anion Gap 9 BUN 12 Creatinine < 0.8 Creat Clearance w eGFR > 60 Random Glucose 120 H Calcium 7.6 L Ferritin Total Bilirubin 1.4 H AST 36 ALT 22 Alkaline Phosphatase 82 Creatine Kinase 62 Troponin I < 0.03 Total Protein 6.4 Albumin 2.3 L Lipase Urine Color Urine Appearance Urine pH Ur Specific [place] Urine Protein Urine Glucose (UA) Urine Ketones Urine Blood Urine Nitrite Urine Bilirubin Urine Urobilinogen Ur Leukocyte Esterase Stool Occult Blood Blood Type Antibody Screen Crossmatch 09/19/17 09/19/17 09/19/17 12:49 14:40 20:00 WBC RBC Hgb Hct MCV MCH MCHC RDW Plt Count MPV Absolute Neuts (auto) Neutrophils % Lymphocytes % Monocytes % Eosinophils % Basophils % Hypochromia Anisocytosis Microcytosis PT with INR INR Sodium Potassium Chloride Carbon Dioxide Anion Gap BUN Creatinine Creat Clearance w eGFR Random Glucose Calcium Ferritin Total Bilirubin AST ALT Alkaline Phosphatase Creatine Kinase Troponin I Total Protein Albumin Lipase 74 Urine Color [place] Urine Appearance Clear Urine pH 6.5 Ur Specific [place] 1.020 Urine Protein Negative Urine Glucose (UA) Negative Urine Ketones Negative Urine Blood Negative Urine Nitrite Negative Urine Bilirubin Negative Urine Urobilinogen 1.0 Ur Leukocyte Esterase Negative Stool Occult Blood Blood Type O POSITIVE Antibody Screen Negative Crossmatch 09/20/17 09/20/17 09/20/17 05:27 06:00 06:00 WBC 4.3 RBC 2.96 L Hgb 6.9 L* Hct 22.2 L MCV 75.0 L MCH 23.2 L MCHC 31.0 L RDW 21.0 H Plt Count 290 MPV 7.0 L Absolute Neuts (auto) Neutrophils % Lymphocytes % Monocytes % Eosinophils % Basophils % Hypochromia Anisocytosis Microcytosis PT with INR INR Sodium 139 Potassium 3.6 Chloride 107 Carbon Dioxide 24 Anion Gap 8 BUN 8 Creatinine 0.6 L Creat Clearance w eGFR Random Glucose 103 Calcium 7.5 L Ferritin 9.5 L Total Bilirubin AST ALT Alkaline Phosphatase Creatine Kinase Troponin I Total Protein Albumin Lipase Urine Color Urine Appearance Urine pH Ur Specific [place] Urine Protein Urine Glucose (UA) Urine Ketones Urine Blood Urine Nitrite Urine Bilirubin Urine Urobilinogen Ur Leukocyte Esterase Stool Occult Blood Blood Type Antibody Screen Crossmatch Active Medications Current Medications Chlordiazepoxide HCl (Librium -) 50 mg PO [id number] DEMETRICE Stop: 09/20/17 17:01 Last Admin: 09/20/17 12:00 Dose: 50 mg Chlordiazepoxide HCl (Librium -) 25 mg PO Q4R-[id number] DEMETRICE Stop: 09/21/17 17:01 Chlordiazepoxide HCl (Librium -) 15 mg PO [id number] DEMETRICE Stop: 09/22/17 17:01 Chlordiazepoxide HCl (Librium -) 25 mg PO Q4H PRN PRN Reason: WITHDRAWAL(CONT SUBST) Stop: 09/22/17 21:11 Sodium Chloride (Normal Saline -) 1,000 mls @ 100 mls/hr IV ASDIR DEMETRICE Last Admin: 09/19/17 19:30 Dose: 100 mls/hr Metronidazole (Flagyl 500mg Premixed Ivpb -) 500 mg in 100 mls @ 100 mls/hr IVPB Q6H-IV DEMETRICE Last Admin: 09/20/17 11:59 Dose: 100 mls/hr Ceftriaxone Sodium 2 gm/ (Dextrose) 100 mls @ 100 mls/hr IVPB DAILY DEMETRICE Pantoprazole Sodium (Protonix Iv) 40 mg IVPUSH BID [facility] Last Admin: 09/20/17 10:35 Dose: 40 mg ASSESSMENT/PLAN: Patient is a 52 yo M had not followed with a PMD for over 10years, with signif PMHx of Hepatitis C (completed treatment); Alcohol abuse; Hemorrhoids; BCC was sent by his PCP for blood transfusion for symptomatic anemia. # Symptomatic anemia requiring Blood transfusion likely secondary to UGI bleed S/p 1uPrbc-hgb 6.9 this am, 1 more unit PRBCs Repeat CBC 1 hr after unit of blood Initial 7.05/01 at presentation; stool occult positive; [id number], Iron def (ferritin 9.7), RDW-high Will benefit from Iron supplements Pt was NPO- IV NS @ 100 mls/hr Dr. Chiang consulted- follow recs #GI bleed could be due to NSAIDs, vs esophageal varices (splenic varices on CT) No hematemesis or melena noted but hx of NSAID use and chronic alcohol ingestion It could also be chronic blood loss due to hemorrhoids NPO IV fluids Watch for active bleeding Never had a colonoscopy or endoscopy in the past Alcohol cessation/ NSAID cessation GI consult Protonix iv May benefit from nadolol No active bleeding noted at this time, so hold octreotide #Acute colitis noted on CT abd/pelvis w/o contrast Pt received one dose of levaquin Levaquin d/c with QTc-512 Started on ceftriaxone 2g daily Continue flagyl 500mg Q8H D/W Dr Chiang- Ascities could simulate colitis monitor #Liver cirrhosis noted on imaging Will be followed up as an outpt with tumor markers # Hyponatremia likely secondary to poor PO intake Cont-IV fluids. BMP-Resolved # Alcohol abuse Drinks alcohol daily Pt started on Librium in the ED CIWA score - 2 at presentation; patient was not withdrawing. Librium protocol started by night team-unclear why Will follow up for quick taper if needed Alcohol cessation counseling # Diarrhoea No recent h/o abx use Could be viral vs infectious Stool cultures/ova/parasite # Hep C Treatment completed in the year 1999 with undetectable viral load. # # FEN IV NS @ 100mls/hr, PRBCs Monitor lytes and repelte as needed NPO # Prophylaxis For DVT: ON Scd's, no heparin given at this time given the anemia For GI: On Protonix 40mg IV BID #Dispo: Continue tele- still in sinus tachy, likely due to anemia Monitor Visit type - Emergency Visit Emergency Visit: Yes ED Registration Date: 09/19/17 Care time: The patient presented to the Emergency Department on the above date and was hospitalized for further evaluation of their emergent condition. - New Patient This patient is new to me today: Yes Date on this admission: 09/20/17 - Critical Care Critical Care patient: No - Discharge Referral Referred to [facility] Med P.C.: No
--- NOTE | 2017-09-20 11:13 | EKG ---
Test Reason : Blood Pressure : / mmHG Vent. Rate : 108 BPM Atrial Rate : 108 BPM P-R Int : 156 ms QRS Dur : 106 ms QT Int : 388 ms P-R-T Axes : 035 030 058 degrees QTc Int : 519 ms SINUS TACHYCARDIA OTHERWISE NORMAL ECG NO PREVIOUS ECGS AVAILABLE Confirmed by OMAR MILLER MD ([id number]) on 09/20/2017 11:13:19 AM Referred By: SHADY Confirmed By:OMAR MILLER MD
[2017-09-20] MEDS ORDERED: CEFTRIAXONE 2 GM in DEXTROSE 5%-WATER 100 ML IVPB SCH (11:30)
[2017-09-20] MEDS: chlordiazePOXIDE HCL 25 MG CAPSULE PO SCH (12:00)
[2017-09-20 13:28] LABS: MAGNESIUM 1.8 mg/dL (1.8-2.4); PHOSPHOROUS 3.7 mg/dL (2.5-4.9)
[2017-09-20] MEDS ORDERED: DEXTROSE 5%-WATER 100 ML IVPB ONE ×2 (13:36→14:18)
[2017-09-20] MEDS: CEFTRIAXONE 2 GM in DEXTROSE 5%-WATER 100 ML IVPB SCH (14:33)
[2017-09-20] MEDS ORDERED: FOLIC ACID INJECTION - 1 MG, THIAMINE HCL 100 MG, MULTIVIT INJECTION ADULT 10 ML in SOD... IVPB ONE (14:43)
[2017-09-20] MEDS ORDERED: IRON SUCROSE INJECTION 200 MG in SODIUM CHLORIDE 240 ML IVPB ONE (14:43)
--- NOTE | 2017-09-20 14:55 | PN ---
Teaching Attending Note Name of Resident: Kati Yuen ATTENDING PHYSICIAN STATEMENT I saw and evaluated the patient. I reviewed the resident's note and discussed the case with the resident. I agree with the resident's findings and plan as documented. SUBJECTIVE:feeling lethargic but improved since admission. slight GUPTA which he contributes to being hungry. states has not seen PMD in 20 years and went to establish one yesterday and was instructed to come to ER due to anemia. has been feeling lethargic for some time now. been taking ibuprofen daily for several weeks for low back pain. does not take any other medications. was sober for 20years and relapsed due to family stressors. denies Cp, SOB, fever, chills , N/V/C/D, agitation or anxiety, auditory/visual hallucinations OBJECTIVE: Last Vital Signs Temp Pulse Resp BP Pulse Ox 98.5 F 106 H 20 110/62 92 L 09/19/17 23:00 09/19/17 19:26 09/20/17 09:00 09/19/17 19:26 09/20/17 09:00 General lethargic CV S1 S2 tachy no murmur Lungs CTA B/l no wheezing/rales/rhonchi Abdomen soft NT/ND obese. +scattered hemiagioma, n o hepatomegaly Extremities no pedal edema, no tremors ASSESSMENT AND PLAN: 52yo M with PMH continuous ETOH abuse and HCV sent to the ER for anemia and found to have cirrhosis and colitis 1. Acute GI bleed- high concern for Ulcers due to NSAID use however high likelihood of variceal bleeding. NPO, IVF, PPI. plan for EGD in the AM 2. Iron def anemia and acute blood loss anemia- Ferritin <10. start venofer daily. will need po on discharge to replete stores. inappropriate response to 1 unit PRBC and will transfuse and additional unit. trend hgb Q8H. 3. Acute colitis- seen on CT scan. abdomen is not tender. will switch levaquin to Ceftriaxone due to prolonged Qtc. cont flagyl. cont NPO and IVF 4. Hyponatremia- dehydration. now resolved 5. Cirrhosis- has hx of HCV however can also be combination of etoh use. normal LFT concerning that cirrhosis is advanced. will check hepatitis panel. Gi on board 6. splenic varices 7. Continuous ETOH abuse- CIWA 2. pt is resting comfortable does not appear to be withdrawing. was started on librium protocol and reported on admission had low CIWA at that time as well. will d/c librium as this medication is hepatotoxic. monitor for signs of withdrawal. can start ativan protocol if withdrawal symptoms start. give banana bag. spoke about inpatient rehab which pt wants to consider at this time. never did inpatient rehab in the past and was sober for 20 years through AA meetings. 8. DVT ppx- SCD 9. spoke with sister present at bedside. all questions answered. verbalized understanding and agreement with plan
--- NOTE | 2017-09-20 16:05 | CON.GI ---
Consult Consult Specialty:: Gastroenterology Referred by:: Dr. Pierce Reason for Consultation:: GI bleed - History of Present Illness Chief Complaint: Weakness History of Present Illness: Patient is a 52 year old male who was sent over by his PCP due to abnormal lab findings of low hemoglobin and possible blood transfusions. Patient reports feeling weak for the past three months, which worsened in the last couple of weeks, prompting him to establish care with a PCP after 20+ years. According to patient he has been experiencing nonbloody foul-smelling loose stools for the last one month after initially experiencing gas two months prior. Patient reports having 7-8 loose bowel movements a day. However, patient states prior to his loose bowel movements, he noticed his stools thinner than usual. Patient also reports taking NSAID's daily for about two months due to back pain without taking any PPI's. Patient denies ever having a colonoscopy or endoscopy in the past. Patient otherwise denies any recent travel, recent antibiotic use, jaundice, joint pain, rash, nausea, vomiting, fever, chills, weight loss, loss of appetite , hematemesis, hematochezia, melena, hematuria, autoimmune disorders, chest pain , palpitations, shortness of breath, headaches, dysuria, frequency. 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 Hepatitis C, for which he reports being reated for in 1998 Patient does report being sober from alcohol for 20 years but relapsed 6 years ago and has been drinking 3-4 glasses of Vodka a day - History Source History Provided By: Patient Limitations to Obtaining History: No Limitations - Past Medical History Gastrointestinal: Yes: Hemorrhoids Hepatobiliary: Yes: Hepatitis C (treated in 1998) Dermatology: Yes: Basal Cell - Past Surgical History Additional Surgical History: Moh's surgery - Alcohol/Substance Use Hx Alcohol Use: Yes Number of Drinks Daily: 4 (Vodka) History of Substance Use: reports: Cocaine (Quit 20+ years ), Heroin (Quit 20+ years ), Marijuana - Smoking History Smoking history: Former smoker Have you smoked in the past 12 months: No Aproximately how many cigarettes per day: 24 (Currently chews tobacco ) If you are a former smoker, when did you quit?: 2 years Home Medications - Allergies Allergies/Adverse Reactions: Allergies Allergy/AdvReac Type Severity Reaction Status Date / Time Penicillins AdvReac Verified 09/19/17 11:20 - Home Medications Home Medications: Ambulatory Orders Fexofenadine/Pseudoephedrine [Melissa-D 12 Hour Tablet] 1 each PO DAILY Family Disease History - Family Disease History Family Disease History: Respiratory: Father (COPD/EMPHYSEMA) Review of Systems - Review of Systems Constitutional: reports: Fever, Malaise. denies: Chills, Diaphoresis, Loss of Appetite Eyes: reports: No Symptoms. denies: Blurred Vision HENT: denies: Difficult Swallowing, Epistaxis, Mouth Swelling, Throat Pain Neck: reports: No Symptoms. denies: Decreased ROM, Tenderness Cardiovascular: reports: No Symptoms. denies: Chest Pain, Edema, Palpitations, Shortness of Breath Respiratory: reports: No Symptoms. denies: Cough, Hemoptysis, SOB, SOB on Exertion, Wheezing Gastrointestinal: reports: Bloating, Diarrhea. denies: Abdominal Pain, Dysphagia, Indigestion, Melena, Nausea, Rectal Bleeding, Vomiting, Vomiting Blood Genitourinary: reports: No Symptoms. denies: Burning, Dysuria Musculoskeletal: reports: No Symptoms. denies: Joint Pain, Joint Swelling Neurological: reports: No Symptoms. denies: Change in LOC, Confusion, Headache , Numbness, Seizure, Syncope Endocrine: reports: No Symptoms. denies: Excessive Sweating, Flushing, Intolerance to Cold, Intolerance to Heat Hematology/Lymphatic: reports: No Symptoms. denies: Easily Bruised, Excessive Bleeding Psychiatric: reports: Depression Physical Exam-GI Vital Signs: Vital Signs Temperature 97.8 F 09/20/17 15:00 Pulse Rate 100 H 09/20/17 15:00 Respiratory Rate 09/20/17 15:00 Blood Pressure 106/64 09/20/17 15:00 O2 Sat by Pulse Oximetry (%) 92 L 09/20/17 09:00 Constitutional: Yes: Well Nourished, No Distress, Calm, Obese. No: Anxious, Pallor, Thin Eyes: Yes: PERRL, Sclera Icterus HENT: Yes: WNL, Atraumatic, Normocephalic. No: Nasal Congestion, Pharyngeal Erythema, Tonsillar Exudate Neck: Yes: WNL, Supple, Trachea Midline. No: Decreased ROM, Lymphadenopathy Cardiovascular: Yes: Tachycardia, S1, S2. No: Pulse Irregular, Bruit, JVD, Murmur Respiratory: Yes: WNL, Regular, CTA Bilaterally. No: Accessory Muscle Use, Rales, Rhonchi, Wheezes Gastrointestinal Inspection: Yes: Distention. No: Hernia, Scars ...Auscultate: Yes: Normoactive Bowel Sounds ...Palpate: Yes: Hepatomegaly (mild), Other (distended). No: Firm/Rigid, Guarding, Splenomegaly, Tenderness, Tenderness, Rebound ...Percussion: No: Fluid Wave ...Rectal Exam: Yes: Sphincter Tone Normal. No: Hemorrhoids/Internal, Mass Extremities: Yes: WNL. No: Calf Tenderness, Cold, Cool, Erythema Edema: No Integumentary: Yes: Other Neurological: Yes: WNL, Alert, Oriented. No: Aphasia, Confusion, Dysarthria, Facial Droop Psychiatric: Yes: WNL, Alert, Oriented Labs: CBC, BMP 09/20/17 05:27 09/20/17 06:00 INR, PTT INR 1.13 (0.82-1.09) 09/19/17 12:49 Imaging - Results Cat Scan: Report Reviewed, Image Reviewed Problem List - Problems (1) Alcoholic cirrhosis of liver with ascites Code(s): K70.31 - ALCOHOLIC CIRRHOSIS OF LIVER WITH ASCITES (2) Hepatic cirrhosis due to chronic hepatitis C infection Code(s): B18.2 - CHRONIC VIRAL HEPATITIS C; K74.60 - UNSPECIFIED CIRRHOSIS OF LIVER (3) Alcohol abuse Code(s): F10.10 - ALCOHOL ABUSE, UNCOMPLICATED (4) Varices of other sites Code(s): I86.8 - VARICOSE VEINS OF OTHER SPECIFIED SITES (5) GI bleed Code(s): K92.2 - GASTROINTESTINAL HEMORRHAGE, UNSPECIFIED Qualifiers: GI bleed type/associated pathology: unspecified gastrointestinal hemorrhage type Qualified Code(s): K92.2 - Gastrointestinal hemorrhage, unspecified Assessment/Plan Patient is a 52 year old male with a significant history of Alcohol abuse, Hepatitis C (treated 1998) who was sent over by his PCP for blood transfusions due to anemia on blood work. Patient in the ED was found to have symptomatic anemia and is s/p PRBC transfusions x1. CT abdomen revealed possible colitis, splenic varices and liver cirrhosis, which is likely a combination of alcohol abuse and hepatitis C. Patient reports using chronic NSAID's for his back pain , which is concerning for upper GI bleed. Will schedule patient for Endoscopy tomorrow morning to rule out any ulcerations or malignancies. Remain NPO on IVP and PPI. Will order Stool O&P, stool culture, C.diff, celiac disease and Lactoferrin to rule out deficiency as it may cause patient to have edema of the colon, which may show a confusing picture of colitis. Will need to continue monitoring patient with daily labs and electrolytes. Case discussed with Dr. Андрей June MD-PGY2
[2017-09-20 22:10] LABS: HEMATOCRIT 25.2 % (35.4-49); MCH 24.3 pg (25.7-33.7); MCHC 31.7 g/dl (32.0-35.9); MEAN CELL VOLUME 76.7 fl (80-96); MEAN PLT VOLUME 7.3 fl (7.5-11.1); PLATELET COUNT 311 K/MM3 (134-434); RBC 3.29 M/mm3 (4.00-5.60); RDW 21.1 % (11.9-15.9); WHITE BLOOD COUNT 6.7 K/mm3 (4.0-10.0)
[2017-09-20] MEDS ORDERED: chlordiazePOXIDE HCL 25 MG CAPSULE PO SCH (23:00)
[2017-09-21] MEDS: SODIUM CHLORIDE 1,000 ML IV SCH ×2 (06:22→20:55)
[2017-09-21] MEDS ORDERED: PROPOFOL 20 ML ONE ×2 (07:31)
[2017-09-21] MEDS ORDERED: LIDOCAINE HCL/PF 2% SDV 5ML VIAL ONE (07:32)
[2017-09-21 07:48] LABS: BASO % 0.9 % (0-2.0); EOS % 3.5 % (0-4.5); HEMATOCRIT 28.1 % (35.4-49); HEMOGLOBIN 8.8 GM/dL (11.7-16.9); LYMPH % 13.6 % (8-40); MCH 24.3 pg (25.7-33.7); MCHC 31.4 g/dl (32.0-35.9); MEAN CELL VOLUME 77.3 fl (80-96); MEAN PLT VOLUME 7.1 fl (7.5-11.1); MONO % 11.2 % (3.8-10.2); NEUT % 70.8 % (42.8-82.8); PLATELET COUNT 343 K/MM3 (134-434); RBC 3.63 M/mm3 (4.00-5.60); RDW 20.4 % (11.9-15.9); WHITE BLOOD COUNT 7.7 K/mm3 (4.0-10.0)
--- NOTE | 2017-09-21 08:05 | PROC ---
Endoscopy Procedure Endoscopy procedure completed. Please see scanned procedure report. portal hypertensive gastropathy multiple, superficial, non-bleeding gastric ulcers in the antrum and the body, biopsies taken 2 columns, grade 3 EV w/o stigmata of recent, active, or impending bleeding. 6 bands were applied successfully. normal proximal small bowel. PPI, carafate, nadalol ordered. Follow biopsies. Soft diet.
[2017-09-21 08:06] LABS: CHLORIDE 106 mmol/L (98-107); POTASSIUM 3.9 mmol/L (3.5-5.1); SODIUM 139 mmol/L (136-145)
[2017-09-21 08:21] LABS: ALBUMIN 2.3 g/dl (3.4-5.0); ALK PHOS 82 U/L (45-117); ANION GAP 11 (8-16); BILIRUBIN,TOTAL 2.2 mg/dL (0.2-1.0); BLOOD UREA NITROGEN 8 mg/dL (7-18); CALCIUM 7.7 mg/dL (8.5-10.1); CO2 22 mmol/L (21-32); CREATININE 0.7 mg/dL (0.7-1.3); GLUCOSE,RANDOM 115 mg/dL (74-106); PHOSPHOROUS 3.6 mg/dL (2.5-4.9); SGOT/AST 30 U/L (15-37); SGPT/ALT 22 U/L (12-78)
[2017-09-21] MEDS: KETOROLAC TROMETHAMINE 30 MG/1 ML VIAL IVPUSH ONE ×2 (08:25→10:18)
[2017-09-21] MEDS: oxyCODONE HCL 5 MG TABLET PO SCH ×5 (10:07→22:04)
[2017-09-21] MEDS: ACETAMINOPHEN 325 MG TABLET (FP) PO SCH ×4 (10:08→21:17)
[2017-09-21] MEDS ORDERED: DEXTROSE 5%-WATER 100 ML IVPB ONE (10:17)
[2017-09-21] MEDS: SUCRALFATE 1 GM/10 ML UNIT DOSE CUPS PO SCH ×3 (10:19→21:15)
[2017-09-21] MEDS: NADOLOL 40 MG TABLET (FP) PO SCH (10:19)
[2017-09-21] MEDS: CEFTRIAXONE 2 GM in DEXTROSE 5%-WATER 100 ML IVPB SCH (10:20)
[2017-09-21] MEDS: PANTOPRAZOLE SODIUM 40 MG VIAL IVPUSH SCH ×2 (10:39→21:15)
--- NOTE | 2017-09-21 12:23 | PN ---
Teaching Attending Note Name of Resident: Kati Yuen ATTENDING PHYSICIAN STATEMENT I saw and evaluated the patient. I reviewed the resident's note and discussed the case with the resident. I agree with the resident's findings and plan as documented. SUBJECTIVE:c/o throat discomfort since the EGD. denies Cp, SOB, GUPTA, blurred vision, N/V/C/D, agitation, hemoptysis, BRBPR or melena OBJECTIVE: Last Vital Signs Temp Pulse Resp BP Pulse Ox 98.2 F 98 H 18 132/64 96 09/21/17 10:00 09/21/17 10:00 09/21/17 10:00 09/21/17 10:00 09/21/17 10:00 General NAD CV S1 S2 RRR no murmur Lungs CTA B/l no wheezing/rales/rhonchi Abdomen soft NT/ND obese. +scattered hemiagioma, no hepatomegaly Extremities no pedal edema, no tremors ASSESSMENT AND PLAN: 52yo M with PMH continuous ETOH abuse and HCV sent to the ER for anemia and found to have cirrhosis and colitis 1. Acute GI bleed- s/p EGD showing multiple non bleeding ulcers in antrum/body. several esophageal varices s/p banding and portal hypertensive gastropathy. will advance diet to clear liquids for now. Cont PPI, carafate and stat nadolol. chloraseptic spray for throat soreness likely due to EGD. 2. Iron def anemia and acute blood loss anemia- s/p 2 units PRBC this admission. Hgb stable. will trend BID for now. started venofer yesterday. cont 5 day course and will need to d/c on po. have repeat iron studies in 3 months. no indication for txn at this time. 3. Acute colitis-seen on CT. spoke with GI who is not convinced he has acute colitis due to lack of fever, leukocytosis and abdominal pain. will cont Ceftriaxone/flagyl at this time. will possible d/c abx on sunday and perform colonoscopy. 4. Hyponatremia- dehydration. now resolved 5. Cirrhosis- has hx of HCV however can also be combination of etoh use. normal LFT concerning that cirrhosis is advanced. hepatitis panel pending. Gi on board 6. splenic varices 7. Continuous ETOH abuse- CIWA 0. off librium protocol. counselled on risks assoc with continued drinking. considering inpatient rehab at this time. 8. DVT ppx- SCD 9. spoke with sister present at bedside. all questions answered. verbalized understanding and agreement with plan
--- NOTE | 2017-09-21 14:35 | PN ---
Physical Exam: SUBJECTIVE: Patient seen and examined OBJECTIVE: Vital Signs Period Temp Pulse Resp BP Sys/Orantes Pulse Ox Last 24 Hr 97.8 F-99 F 92-104 15-20 101-132/53-75 92-97 GENERAL: The patient is awake, alert, and fully oriented, in no acute distress. HEAD: Normal with no signs of trauma. EYES: PERRL, extraocular movements intact, sclera anicteric, conjunctiva clear. No ptosis. ENT: Ears normal, nares patent, oropharynx clear without exudates, moist mucous membranes. NECK: Trachea midline, full range of motion, supple. LUNGS: Breath sounds equal, clear to auscultation bilaterally, no wheezes, no crackles, no accessory muscle use. HEART: Regular rate and rhythm, S1, S2 without murmur, rub or gallop. ABDOMEN: Soft, nontender, nondistended, normoactive bowel sounds, no guarding, no rebound, no hepatosplenomegaly, no masses. EXTREMITIES: 2+ pulses, warm, well-perfused, no edema. NEUROLOGICAL: Cranial nerves II through XII grossly intact. Normal speech, gait not observed. PSYCH: Normal mood, normal affect. SKIN: Warm, dry, normal turgor, no rashes or lesions noted CBC, BMP 09/21/17 15:15 09/21/17 06:00 Laboratory Results - last 24 hr 09/19/17 09/20/17 09/21/17 20:00 21:30 06:00 WBC 6.7 D RBC 3.29 L Hgb 8.0 L D Hct 25.2 L MCV 76.7 L MCH 24.3 L MCHC 31.7 L RDW 21.1 H Plt Count 311 MPV 7.3 L Absolute Neuts (auto) Neutrophils % Lymphocytes % Monocytes % Eosinophils % Basophils % Nucleated RBC % Sodium 139 Potassium 3.9 Chloride 106 Carbon Dioxide 22 Anion Gap 11 BUN 8 Creatinine 0.7 Creat Clearance w eGFR > 60 Random Glucose 115 H Calcium 7.7 L Phosphorus 3.6 Magnesium 2.0 Total Bilirubin 2.2 H AST 30 ALT 22 Alkaline Phosphatase 82 Total Protein 7.0 Albumin 2.3 L Blood Type O POSITIVE Antibody Screen Negative Crossmatch See Detail 09/21/17 06:00 WBC 7.7 RBC 3.63 L Hgb 8.8 L Hct 28.1 L MCV 77.3 L MCH 24.3 L MCHC 31.4 L RDW 20.4 H Plt Count 343 MPV 7.1 L Absolute Neuts (auto) 5.5 Neutrophils % 70.8 Lymphocytes % 13.6 Monocytes % 11.2 H Eosinophils % 3.5 Basophils % 0.9 Nucleated RBC % 0 Sodium Potassium Chloride Carbon Dioxide Anion Gap BUN Creatinine Creat Clearance w eGFR Random Glucose Calcium Phosphorus Magnesium Total Bilirubin AST ALT Alkaline Phosphatase Total Protein Albumin Blood Type Antibody Screen Crossmatch Active Medications Generic Name Dose Route Start Last Admin Trade Name Gerardq PRN Reason Stop Dose Admin Acetaminophen 325 mg 09/21/17 10:00 09/21/17 10:08 Tylenol - PO 325 mg Q4HWA [facility]ICE Administration Sodium Chloride 1,000 mls @ 100 mls/hr 09/19/17 19:30 09/21/17 06:22 Normal Saline - IV 100 mls/hr ASDIR [facility] Administration Metronidazole 500 mg in 100 mls @ 100 mls/hr 09/19/17 23:45 09/21/17 10:20 Flagyl 500mg Premixed Ivpb - IVPB 100 mls/hr Q6H-IV [facility] Administration Ceftriaxone Sodium 2 gm/ 100 mls @ 100 mls/hr 09/20/17 14:15 09/21/17 10:20 Dextrose IVPB 100 mls/hr DAILY [facility] Administration Nadolol 40 mg 09/21/17 10:00 09/21/17 10:19 Corgard - PO 40 mg DAILY [facility] Administration Oxycodone HCl 5 mg 09/21/17 10:00 09/21/17 10:07 Roxicodone - PO 5 mg Q4HWA [facility] Administration Pantoprazole Sodium 40 mg 09/19/17 22:00 09/21/17 10:39 Protonix Iv IVPUSH 40 mg BID [facility] Administration Sucralfate 1 gm 09/21/17 11:00 09/21/17 10:19 Carafate Oral Suspension - PO 1 gm ACHS [facility] Administration EGD: 09/21/17 portal hypertensive gastropathy multiple, superficial, non-bleeding gastric ulcers in the antrum and the body, biopsies taken 2 columns, grade 3 EV w/o stigmata of recent, active, or impending bleeding. 6 bands were applied successfully. normal proximal small bowel. ASSESSMENT/PLAN: Patient is a 52 yo M had not followed with a PMD for over 10years, with signif PMHx of Hepatitis C (completed treatment); Alcohol abuse; Hemorrhoids; BCC was sent by his PCP for blood transfusion for symptomatic anemia. # Symptomatic anemia requiring Blood transfusion likely secondary to UGI bleed S/p 2uPrbc-hgb 8,8 this am, Repeat CBC-8.5 For bid cbc Initial 7.1/23 at presentation; stool occult positive; [id number], Iron def (ferritin 9.7), RDW-high Will benefit from Iron supplements-venicar started yesterday to continue for 5days Now on soft diet C/O of sorethroat post endoscopy- Chloraseptic spray IV NS @ 100 mls/hr, till he tolerates PO Dr. Chiang consulted- apprec recs-PPI, carafate, nadalol ordered. Follow biopsies. #GI bleed in setting of portal hypertensive gastropathy Due to esophageal varices stage 3 s/p banding and non bleeding gastric ulcers Alcohol cessation/ NSAID cessation GI consult- see recoomendations above cont Protonix iv, nadolol and sucralfate #Acute colitis noted on CT abd/pelvis w/o contrast Pt received one dose of levaquin Levaquin d/c with QTc-512 cont ceftriaxone 2g daily Continue flagyl 500mg Q8H D/W Dr Chiang- fluid could simulate colitis, small bowel appeared nl onendoscopy For likely colonoscopy on sunday #Liver cirrhosis noted on imaging hep panel pending transaminases not elevated in setting of cirrhosis-inr ordered Will be followed up as an outpt with tumor markers # Hyponatremia likely secondary to poor PO intake Cont-IV fluids. BMP-Resolved # Alcohol abuse Drinks alcohol daily librium dcd, not in withdrawal Alcohol cessation counseling # Diarrhoea No recent h/o abx use Could be viral vs infectious Stool cultures/ova/parasite # Hep C Treatment completed in the year 1999 with undetectable viral load. hep panel # FEN IV NS @ 100mls/hr, PRBCs Monitor lytes and repelte as needed soft diet # Prophylaxis For DVT: ON Scd's, no heparin given at this time given the anemia For GI: On Protonix 40mg IV BID #Dispo: scds Continue tele- still in sinus tachy, likely due to anemia Monitor Visit type - Emergency Visit Emergency Visit: Yes ED Registration Date: 09/19/17 Care time: The patient presented to the Emergency Department on the above date and was hospitalized for further evaluation of their emergent condition. - New Patient This patient is new to me today: No - Critical Care Critical Care patient: No - Discharge Referral Referred to [facility] Med P.C.: No
[2017-09-21] MEDS ORDERED: PHENOL 177 ML SPRAY BOTTLE MM PRN (15:02)
[2017-09-21 15:34] LABS: HEMATOCRIT 27.1 % (35.4-49); HEMOGLOBIN 8.5 GM/dL (11.7-16.9); MCH 24.3 pg (25.7-33.7); MCHC 31.3 g/dl (32.0-35.9); MEAN CELL VOLUME 77.5 fl (80-96); MEAN PLT VOLUME 7.2 fl (7.5-11.1); PLATELET COUNT 318 K/MM3 (134-434); RBC 3.49 M/mm3 (4.00-5.60); RDW 20.3 % (11.9-15.9); WHITE BLOOD COUNT 6.4 K/mm3 (4.0-10.0)
[2017-09-21] MEDS: IRON SUCROSE INJECTION 200 MG in SODIUM CHLORIDE 240 ML IVPB SCH (18:28)
[2017-09-21 21:19] LABS: HEMOGLOBIN 8.1 GM/dL (11.7-16.9); MCH 24.3 pg (25.7-33.7); MEAN CELL VOLUME 78.4 fl (80-96); MEAN PLT VOLUME 7.2 fl (7.5-11.1); PLATELET COUNT 348 K/MM3 (134-434); RBC 3.32 M/mm3 (4.00-5.60); WHITE BLOOD COUNT 7.6 K/mm3 (4.0-10.0)
[2017-09-21] MEDS ORDERED: chlordiazePOXIDE 5 MG CAPSULE PO SCH (23:00)
[2017-09-22] MEDS: SODIUM CHLORIDE 1,000 ML IV SCH (02:30)
[2017-09-22] MEDS: oxyCODONE HCL 5 MG TABLET PO SCH ×2 (05:43→10:09)
[2017-09-22] MEDS: ACETAMINOPHEN 325 MG TABLET (FP) PO SCH ×3 (05:44→14:48)
[2017-09-22] MEDS: IRON SUCROSE INJECTION 200 MG in SODIUM CHLORIDE 240 ML IVPB SCH (05:47)
[2017-09-22] MEDS: SUCRALFATE 1 GM/10 ML UNIT DOSE CUPS PO SCH ×5 (05:47→21:35)
[2017-09-22 06:06] LABS: SERUM IRON SATURATION 27 % (15-55); TOTAL IRON BINDING CAPACITY 254 ug/dL (250-450); TRANSFERRIN 195 mg/dL (200-370); UIBC 185 ug/dL (111-343)
[2017-09-22 06:33] LABS: EOS % 3.4 % (0-4.5); HEMATOCRIT 26.2 % (35.4-49); HEMOGLOBIN 8.4 GM/dL (11.7-16.9); LYMPH % 11.8 % (8-40); MEAN CELL VOLUME 77.9 fl (80-96); MEAN PLT VOLUME 7.2 fl (7.5-11.1); MONO % 10.7 % (3.8-10.2); NEUT % 73.1 % (42.8-82.8); PLATELET COUNT 329 K/MM3 (134-434); RBC 3.36 M/mm3 (4.00-5.60); RDW 20.8 % (11.9-15.9); WHITE BLOOD COUNT 7.7 K/mm3 (4.0-10.0)
[2017-09-22 06:47] LABS: INR 1.65 (0.82-1.09); PROTHROMBIN TIME (PATIENT) 18.6 SEC (9.7-13.0)
[2017-09-22 07:08] LABS: ALBUMIN 1.9 g/dl (3.4-5.0); ALK PHOS 74 U/L (45-117); ANION GAP 7 (8-16); BILIRUBIN,TOTAL 1.1 mg/dL (0.2-1.0); BLOOD UREA NITROGEN 6 mg/dL (7-18); CALCIUM 7.2 mg/dL (8.5-10.1); CHLORIDE 110 mmol/L (98-107); CO2 25 mmol/L (21-32); CREATININE 0.7 mg/dL (0.7-1.3); GLUCOSE,RANDOM 102 mg/dL (74-106); POTASSIUM 3.7 mmol/L (3.5-5.1); SGOT/AST 25 U/L (15-37); SGPT/ALT 18 U/L (12-78); SODIUM 142 mmol/L (136-145)
[2017-09-22] MEDS ORDERED: DEXTROSE 5%-WATER 100 ML IVPB ONE (09:40)
[2017-09-22] MEDS: PANTOPRAZOLE SODIUM 40 MG VIAL IVPUSH SCH (10:09)
[2017-09-22] MEDS: NADOLOL 40 MG TABLET (FP) PO SCH (10:09)
[2017-09-22] MEDS: CEFTRIAXONE 2 GM in DEXTROSE 5%-WATER 100 ML IVPB SCH (10:10)
--- NOTE | 2017-09-22 12:39 | PN ---
Progress Note (short form) - Note Progress Note: c/o sore throat. denies CP,SOB ,fever, chills, N/V/C/D, abdominal pain or pain when eating Current Medications Generic Name Dose Route Start Last Admin Trade Name Freq PRN Reason Stop Dose Admin Acetaminophen 325 mg 09/21/17 10:00 09/22/17 10:09 Tylenol - PO 325 mg Q4HWA DEMET[facility]ICE Administration Sodium Chloride 1,000 mls @ 100 mls/hr 09/19/17 19:30 09/22/17 02:30 Normal Saline - IV 100 mls/hr ASDIR DEMETRICE Administration Metronidazole 500 mg in 100 mls @ 100 mls/hr 09/19/17 23:45 09/22/17 10:09 Flagyl 500mg Premixed Ivpb - IVPB 100 mls/hr Q6H-IV [facility] Administration Ceftriaxone Sodium 2 gm/ 100 mls @ 100 mls/hr 09/20/17 14:15 09/22/17 10:10 Dextrose IVPB 100 mls/hr DAILY DEMET[facility]ICE Administration Iron Sucrose 200 mg/ Sodium 250 mls @ 250 mls/hr 09/21/17 15:45 09/22/17 05: 47 Chloride IVPB 09/25/17 15:44 250 mls/hr DAILY@0600 DEMET[facility] Administration Nadolol 40 mg 09/21/17 10:00 09/22/17 10:09 Corgard - PO 40 mg DAILY DEMETRICE Administration Oxycodone HCl 5 mg 09/21/17 10:00 09/22/17 10:09 Roxicodone - PO 5 mg Q4HWA DEMET[facility]ICE Administration Pantoprazole Sodium 40 mg 09/19/17 22:00 09/22/17 10:09 Protonix Iv IVPUSH 40 mg BID DEMETRICE Administration Phenol/Menthol 1 spray 09/21/17 15:02 Chloraseptic - MM Q6HPO PRN SORE THROAT Sucralfate 1 gm 09/21/17 11:00 09/22/17 12:26 Carafate Oral Suspension - PO 1 gm ACHS DEMETRICE Administration Last Vital Signs Temp Pulse Resp BP Pulse Ox 98 F 87 18 123/68 96 09/22/17 08:47 09/22/17 08:47 09/22/17 08:47 09/22/17 08:47 09/21/17 21:00 General NAD CV S1 S2 RRR no murmur Lungs CTA B/l no wheezing/rales/rhonchi Abdomen soft NT/ND obese. +scattered hemiagioma, no hepatomegaly Extremities no pedal edema, no tremors CBCD WBC 7.7 K/mm3 (4.0-10.0) 09/22/17 05:30 RBC 3.36 M/mm3 (4.00-5.60) L 09/22/17 05:30 Hgb 8.4 GM/dL (11.7-16.9) L 09/22/17 05:30 Hct 26.2 % (35.4-49) L 09/22/17 05:30 MCV 77.9 fl (80-96) L 09/22/17 05:30 MCHC 32.0 g/dl (32.0-35.9) 09/22/17 05:30 RDW 20.8 % (11.9-15.9) H 09/22/17 05:30 Plt Count 329 K/MM3 (134-434) 09/22/17 05:30 MPV 7.2 fl (7.5-11.1) L 09/22/17 05:30 CMP Sodium 142 mmol/L (136-145) 09/22/17 05:30 Potassium 3.7 mmol/L (3.5-5.1) 09/22/17 05:30 Chloride 110 mmol/L (98-107) H 09/22/17 05:30 Carbon Dioxide 25 mmol/L (21-32) 09/22/17 05:30 Anion Gap 7 (8-16) L 09/22/17 05:30 BUN 6 mg/dL (7-18) L D 09/22/17 05:30 Creatinine 0.7 mg/dL (0.7-1.3) 09/22/17 05:30 Creat Clearance w eGFR > 60 (>60) 09/22/17 05:30 Calcium 7.2 mg/dL (8.5-10.1) L 09/22/17 05:30 Total Bilirubin 1.1 mg/dL (0.2-1.0) H D 09/22/17 05:30 AST 25 U/L (15-37) 09/22/17 05:30 ALT 18 U/L (12-78) 09/22/17 05:30 Alkaline Phosphatase 74 U/L (45-117) 09/22/17 05:30 Total Protein 6.0 g/dl (6.4-8.2) L 09/22/17 05:30 Albumin 1.9 g/dl (3.4-5.0) L 09/22/17 05:30 ASSESSMENT AND PLAN: 52yo M with PMH continuous ETOH abuse and HCV sent to the ER for anemia and found to have cirrhosis and colitis 1. Acute GI bleed- s/p EGD showing multiple non bleeding ulcers in antrum/body. several esophageal varices s/p banding and portal hypertensive gastropathy. tolerating soft diet. will switch all meds to po. Cont PPI, carafate and nadolol. chloraseptic spray for throat soreness likely due to EGD. d/c IVF 2. Iron def anemia and acute blood loss anemia- s/p 2 units PRBC this admission. Hgb stable. cont venofer day 3. can d/c on oral supplementation. no indication for txn at this time. 3. Acute colitis-seen on CT. spoke with GI who is not convinced he has acute colitis due to lack of fever, leukocytosis and abdominal pain. will cont Ceftriaxone/flagyl at this time. will possible d/c abx on sunday and perform colonoscopy. 4. Hyponatremia- dehydration. now resolved 5. Cirrhosis- has hx of HCV however can also be combination of etoh use. was treated with Pegasus 20+years ago. was told last viral load was low. hepatitis panel pending. Gi on board. will need to f/u with electrical systems designer as outpatinet 6. splenic varices 7. Continuous ETOH abuse- CIWA 0. off librium protocol. counselled on risks assoc with continued drinking. considering inpatient rehab at this time. 8. pseudohypocalcemia- Ca 8.8 9. DVT ppx- SCD 10. spoke with family present at bedside. all questions answered. verbalized understanding and agreement with plan 11. can d/c cardiac monitoring Visit type - Emergency Visit Emergency Visit: Yes ED Registration Date: 09/19/17 Care time: The patient presented to the Emergency Department on the above date and was hospitalized for further evaluation of their emergent condition. - New Patient This patient is new to me today: Yes Date on this admission: 09/22/17 - Critical Care Critical Care patient: No - Discharge Referral Referred to [facility] No
[2017-09-22] MEDS ORDERED: IRON SUCROSE INJECTION 200 MG in SODIUM CHLORIDE 240 ML IVPB ONE (13:36)
[2017-09-22 16:13] LABS: GLIADIN ANTIBODY IGA 9 units (0-19); GLIADIN ANTIBODY IGG 4 units (0-19); TRANSGLUTAMINASE IGG < 2 U/mL (0-5)
--- NOTE | 2017-09-22 16:31 | PN ---
Progress Note, Physician History of Present Illness: Mild soreness on swallowing. No acute events otherwise. - Current Medication List Current Medications: Active Medications Acetaminophen (Tylenol -) 325 mg PO Q4HWA [facility] Last Admin: 09/22/17 14:48 Dose: 325 mg Metronidazole (Flagyl 500mg Premixed Ivpb -) 500 mg in 100 mls @ 100 mls/hr IVPB Q6H-IV [facility] Last Admin: 09/22/17 14:49 Dose: 100 mls/hr Ceftriaxone Sodium 2 gm/ (Dextrose) 100 mls @ 100 mls/hr IVPB DAILY [facility] Last Admin: 09/22/17 10:10 Dose: 100 mls/hr Iron Sucrose 200 mg/ Sodium (Chloride) 250 mls @ 250 mls/hr IVPB DAILY@0600 [facility] Stop: 09/25/17 15:44 Last Admin: 09/22/17 05:47 Dose: 250 mls/hr Nadolol (Corgard -) 40 mg PO DAILY [facility] Last Admin: 09/22/17 10:09 Dose: 40 mg Pantoprazole Sodium (Protonix -) 40 mg PO BID [facility] Phenol/Menthol (Chloraseptic -) 1 spray MM Q6HPO PRN PRN Reason: SORE THROAT Sucralfate (Carafate Oral Suspension -) 1 gm PO ACHS [facility] Last Admin: 09/22/17 12:26 Dose: 1 gm - Objective Vital Signs: Vital Signs Temperature 98.7 F 09/22/17 15:00 Pulse Rate 70 09/22/17 15:00 Respiratory Rate 18 09/22/17 15:00 Blood Pressure 97/63 09/22/17 15:00 O2 Sat by Pulse Oximetry (%) 96 09/21/17 21:00 Constitutional: Yes: No Distress, Calm Gastrointestinal: Yes: Normal Bowel Sounds, Soft, Distention Labs: CBC, BMP 09/22/17 05:30 09/22/17 05:30 INR, PTT INR 1.65 (0.82-1.09) H 09/22/17 05:30 Laboratory Last Values WBC 7.7 K/mm3 (4.0-10.0) 09/22/17 05:30 RBC 3.36 M/mm3 (4.00-5.60) L 09/22/17 05:30 Hgb 8.4 GM/dL (11.7-16.9) L 09/22/17 05:30 Hct 26.2 % (35.4-49) L 09/22/17 05:30 MCV 77.9 fl (80-96) L 09/22/17 05:30 MCH 25.0 pg (25.7-33.7) L 09/22/17 05:30 MCHC 32.0 g/dl (32.0-35.9) 09/22/17 05:30 RDW 20.8 % (11.9-15.9) H 09/22/17 05:30 Plt Count 329 K/MM3 (134-434) 09/22/17 05:30 MPV 7.2 fl (7.5-11.1) L 09/22/17 05:30 Absolute Neuts (auto) 5.6 # 09/22/17 05:30 Neutrophils % 73.1 % (42.8-82.8) 09/22/17 05:30 Lymphocytes % 11.8 % (8-40) 09/22/17 05:30 Monocytes % 10.7 % (3.8-10.2) H 09/22/17 05:30 Eosinophils % 3.4 % (0-4.5) 09/22/17 05:30 Basophils % 1.0 % (0-2.0) 09/22/17 05:30 Nucleated RBC % 0 % (0-0) 09/22/17 05:30 Hypochromia 2+ 09/19/17 11:19 Anisocytosis 1+ 09/19/17 11:19 Microcytosis Few 09/19/17 11:19 PT with INR 18.60 SEC (9.7-13.0) H 09/22/17 05:30 INR 1.65 (0.82-1.09) H 09/22/17 05:30 Sodium 142 mmol/L (136-145) 09/22/17 05:30 Potassium 3.7 mmol/L (3.5-5.1) 09/22/17 05:30 Chloride 110 mmol/L (98-107) H 09/22/17 05:30 Carbon Dioxide 25 mmol/L (21-32) 09/22/17 05:30 Anion Gap 7 (8-16) L 09/22/17 05:30 BUN 6 mg/dL (7-18) L D 09/22/17 05:30 Creatinine 0.7 mg/dL (0.7-1.3) 09/22/17 05:30 Creat Clearance w eGFR > 60 (>60) 09/22/17 05:30 Random Glucose 102 mg/dL (74-106) 09/22/17 05:30 Calcium 7.2 mg/dL (8.5-10.1) L 09/22/17 05:30 Phosphorus 3.6 mg/dL (2.5-4.9) 09/21/17 06:00 Magnesium 2.0 mg/dL (1.8-2.4) 09/21/17 06:00 Iron 69 ug/dL (38-169) 09/20/17 05:15 TIBC 254 ug/dL (250-450) 09/20/17 05:15 Iron Saturation 27 % (15-55) 09/20/17 05:15 Transferrin 195 mg/dL (200-370) L 09/20/17 05:15 Ferritin 9.5 ng/ml (16.4-293.9) L 09/20/17 06:00 Total Bilirubin 1.1 mg/dL (0.2-1.0) H D 09/22/17 05:30 AST 25 U/L (15-37) 09/22/17 05:30 ALT 18 U/L (12-78) 09/22/17 05:30 Alkaline Phosphatase 74 U/L (45-117) 09/22/17 05:30 Creatine Kinase 62 IU/L (39-308) 09/19/17 12:49 Troponin I < 0.03 ng/ml (0.00-0.06) 09/19/17 12:49 Total Protein 6.0 g/dl (6.4-8.2) L 09/22/17 05:30 Albumin 1.9 g/dl (3.4-5.0) L 09/22/17 05:30 Lipase 74 U/L (73-393) 09/19/17 12:49 Urine Color Jesica 09/19/17 14:40 Urine Appearance Clear 09/19/17 14:40 Urine pH 6.5 (4.5-8) 09/19/17 14:40 Ur Specific Freedom 1.020 (1.005-1.025) 09/19/17 14:40 Urine Protein Negative (NEGATIVE) 09/19/17 14:40 Urine Glucose (UA) Negative (NEGATIVE) 09/19/17 14:40 Urine Ketones Negative (NEGATIVE) 09/19/17 14:40 Urine Blood Negative (NEGATIVE) 09/19/17 14:40 Urine Nitrite Negative (NEGATIVE) 09/19/17 14:40 Urine Bilirubin Negative (NEGATIVE) 09/19/17 14:40 Urine Urobilinogen 1.0 (0.2-1.0) 09/19/17 14:40 Ur Leukocyte Esterase Negative (NEGATIVE) 09/19/17 14:40 Stool Occult Blood Positive (NEGATIVE) 09/19/17 12:25 IgA 444 mg/dL (90-386) H 09/20/17 15:00 Endomysial IgA Ab Negative (Negative) 09/20/17 15:00 Tiss Transglutamin IgG < 2 U/mL (0-5) 09/20/17 15:00 Tiss Transglutamin IgA <2 U/mL (0-3) 09/20/17 15:00 Anti-Gliadin IgG Ab 4 units (0-19) 09/20/17 15:00 Anti-Gliadin IgA Ab 9 units (0-19) 09/20/17 15:00 Blood Type O POSITIVE 09/19/17 20:00 Antibody Screen Negative 09/19/17 20:00 Crossmatch See Detail 09/19/17 20:00 Problem List - Problems (1) Esophageal varices Code(s): I85.00 - ESOPHAGEAL VARICES WITHOUT BLEEDING Assessment/Plan Continue current care. Colonoscopy on Sunday discussed with the patient.
[2017-09-22] MEDS ORDERED: PHENOL 177 ML SPRAY BOTTLE MM PRN (17:40)
[2017-09-22] MEDS ORDERED: ACETAMINOPHEN 325 MG TABLET (FP) ONE (17:51)
[2017-09-22] MEDS ORDERED: ACETAMINOPHEN 325 MG TABLET (FP) PO PRN (19:57)
[2017-09-22] MEDS: oxyCODONE HCL 5 MG TABLET PO PRN (21:34)
[2017-09-22] MEDS: PANTOPRAZOLE 40 MG TABLET (FP) PO SCH (21:35)
[2017-09-22] MEDS ORDERED: PANTOPRAZOLE 40 MG TABLET (FP) PO SCH (22:00)
[2017-09-23] MEDS: IRON SUCROSE INJECTION 200 MG in SODIUM CHLORIDE 240 ML IVPB SCH (06:53)
[2017-09-23] MEDS: SUCRALFATE 1 GM/10 ML UNIT DOSE CUPS PO SCH ×4 (06:53→21:09)
[2017-09-23 08:10] LABS: HEMATOCRIT 25.4 % (35.4-49); HEMOGLOBIN 8.1 GM/dL (11.7-16.9); MCH 25.3 pg (25.7-33.7); MEAN CELL VOLUME 78.9 fl (80-96); PLATELET COUNT 297 K/MM3 (134-434); RBC 3.21 M/mm3 (4.00-5.60); WHITE BLOOD COUNT 7.3 K/mm3 (4.0-10.0)
[2017-09-23 08:36] LABS: INR 1.84 (0.82-1.09); PROTHROMBIN TIME (PATIENT) 20.8 SEC (9.7-13.0)
[2017-09-23 08:37] LABS: ANION GAP 9 (8-16); BLOOD UREA NITROGEN 6 mg/dL (7-18); CALCIUM 7.2 mg/dL (8.5-10.1); CHLORIDE 105 mmol/L (98-107); CO2 25 mmol/L (21-32); CREATININE 0.6 mg/dL (0.7-1.3); GLUCOSE,RANDOM 98 mg/dL (74-106); POTASSIUM 3.5 mmol/L (3.5-5.1); SODIUM 139 mmol/L (136-145)
[2017-09-23] MEDS ORDERED: PT OWN MED DRAWER 7, Y5N ONE (09:53)
[2017-09-23] MEDS ORDERED: DEXTROSE 5%-WATER 100 ML IVPB ONE (09:54)
[2017-09-23] MEDS: PANTOPRAZOLE 40 MG TABLET (FP) PO SCH ×2 (10:01→21:09)
[2017-09-23] MEDS: NADOLOL 40 MG TABLET (FP) PO SCH (10:02)
[2017-09-23] MEDS: SODIUM CHLORIDE 1,000 ML IV SCH (10:05)
[2017-09-23] MEDS: chlordiazePOXIDE HCL 25 MG CAPSULE PO SCH (10:06)
[2017-09-23] MEDS: CEFTRIAXONE 2 GM in DEXTROSE 5%-WATER 100 ML IVPB SCH (11:39)
[2017-09-23 12:24] VITALS: BMI 26.8
[2017-09-23] MEDS: oxyCODONE HCL 5 MG TABLET PO PRN (13:20)
--- NOTE | 2017-09-23 15:17 | PN ---
Progress Note (short form) - Note Progress Note: continues to have opdynophagia to solids and liquids. denies CP,SOB ,fever, chills, N/V/C/D, abdominal pain or pain when eating Current Medications Generic Name Dose Route Start Last Admin Trade Name Freq PRN Reason Stop Dose Admin Acetaminophen 650 mg 09/22/17 19:57 Tylenol - PO Q6H PRN PAIN LEVEL 7 - 10 Bisacodyl 20 mg 09/23/17 16:30 Dulcolax - PO 09/23/17 16:31 ONCE ONE Ceftriaxone Sodium 2 gm/ 100 mls @ 100 mls/hr 09/23/17 10:00 09/23/17 11:39 Dextrose IVPB 100 mls/hr DAILY [facility] Administration Metronidazole 500 mg in 100 mls @ 100 mls/hr 09/22/17 21:00 09/23/17 10:02 Flagyl 500mg Premixed Ivpb - IVPB 100 mls/hr Q6H-IV [facility] Administration Iron Sucrose 200 mg/ Sodium 250 mls @ 250 mls/hr 09/23/17 06:00 09/23/17 06: 53 Chloride IVPB 09/25/17 15:44 250 mls/hr DAILY@0600 [facility] Administration Nadolol 40 mg 09/23/17 10:00 09/23/17 10:02 Corgard - PO 40 mg DAILY [facility] Administration Oxycodone HCl 5 mg 09/22/17 19:57 09/23/17 13:20 Roxicodone - PO 5 mg Q6H PRN Administration PAIN LEVEL 7 - 10 Pantoprazole Sodium 40 mg 09/22/17 22:00 09/23/17 10:01 Protonix - PO 40 mg BID DEMETRICE Administration Phenol/Menthol 1 spray 09/22/17 17:40 Chloraseptic - MM Q6HPO PRN SORE THROAT Polyethylene Glycol/Electrolytes 4,000 ml 09/23/17 18:00 Golytely Solution - PO 09/23/17 18:01 ONCE ONE Sucralfate 1 gm 09/22/17 22:00 09/23/17 11:40 Carafate Oral Suspension - PO 1 gm ACHS DEMET[facility] Administration Last Vital Signs Temp Pulse Resp BP Pulse Ox 98.1 F 89 18 114/63 94 L 09/23/17 10:00 09/23/17 10:00 09/23/17 10:00 09/23/17 10:00 09/23/17 09:00 General NAD CV S1 S2 RRR no murmur Lungs CTA B/l no wheezing/rales/rhonchi Abdomen soft NT/ND obese. +scattered hemiagioma, no hepatomegaly Extremities no pedal edema, no tremors CBCD WBC 7.3 K/mm3 (4.0-10.0) 09/23/17 07:57 RBC 3.21 M/mm3 (4.00-5.60) L 09/23/17 07:57 Hgb 8.1 GM/dL (11.7-16.9) L 09/23/17 07:57 Hct 25.4 % (35.4-49) L 09/23/17 07:57 MCV 78.9 fl (80-96) L 09/23/17 07:57 MCHC 32.0 g/dl (32.0-35.9) 09/23/17 07:57 RDW 21.0 % (11.9-15.9) H 09/23/17 07:57 Plt Count 297 K/MM3 (134-434) 09/23/17 07:57 MPV 7.0 fl (7.5-11.1) L 09/23/17 07:57 CMP Sodium 139 mmol/L (136-145) 09/23/17 07:57 Potassium 3.5 mmol/L (3.5-5.1) 09/23/17 07:57 Chloride 105 mmol/L (98-107) 09/23/17 07:57 Carbon Dioxide 25 mmol/L (21-32) 09/23/17 07:57 Anion Gap 9 (8-16) 09/23/17 07:57 BUN 6 mg/dL (7-18) L 09/23/17 07:57 Creatinine 0.6 mg/dL (0.7-1.3) L 09/23/17 07:57 Creat Clearance w eGFR > 60 (>60) 09/23/17 07:57 Calcium 7.2 mg/dL (8.5-10.1) L 09/23/17 07:57 Total Bilirubin 1.1 mg/dL (0.2-1.0) H D 09/22/17 05:30 AST 25 U/L (15-37) 09/22/17 05:30 ALT 18 U/L (12-78) 09/22/17 05:30 Alkaline Phosphatase 74 U/L (45-117) 09/22/17 05:30 Total Protein 6.0 g/dl (6.4-8.2) L 09/22/17 05:30 Albumin 1.9 g/dl (3.4-5.0) L 09/22/17 05:30 ASSESSMENT AND PLAN: 52yo M with PMH continuous ETOH abuse and HCV sent to the ER for anemia and found to have cirrhosis and colitis 1. Acute GI bleed- s/p EGD showing multiple non bleeding ulcers in antrum/body. several esophageal varices s/p banding and portal hypertensive gastropathy. tolerating soft diet. odynophagia is likely due to EGD. will notify GI of complaints to ensure nothing else needs to be evaluted at this time. doubt esophageal perforation as pt is hemodynamically stable. plan for colonscopy in the AM. NPO tonight. Cont PPI, carafate and nadolol. chloraseptic spray for throat soreness likely due to EGD. 2. Iron def anemia and acute blood loss anemia- s/p 2 units PRBC this admission. Hgb stable. cont venofer day 4. can d/c on oral supplementation. no indication for txn at this time. 3. Acute colitis-seen on CT. spoke with GI who is not convinced he has acute colitis due to lack of fever, leukocytosis and abdominal pain. will cont Ceftriaxone/flagyl at this time. will possible d/c abx on sunday and perform colonoscopy. 4. Hyponatremia- dehydration. now resolved 5. Cirrhosis- has hx of HCV however can also be combination of etoh use. was treated with Pegasus 20+years ago. was told last viral load was low. hepatitis panel pending. Gi on board. will need to f/u with restaurant attendant as outpatient 6. splenic varices 7. Continuous ETOH abuse- CIWA 0. off librium protocol. counselled on risks assoc with continued drinking. considering inpatient rehab at this time. 8. pseudohypocalcemia- Ca 8.8 9. DVT ppx- SCD 10. spoke with girlfriend present at bedside. all questions answered. verbalized understanding and agreement with plan 11. d/c planning in the AM pending results of colonoscopy Visit type - Emergency Visit Emergency Visit: Yes ED Registration Date: 09/19/17 Care time: The patient presented to the Emergency Department on the above date and was hospitalized for further evaluation of their emergent condition. - New Patient This patient is new to me today: No - Critical Care Critical Care patient: No - Discharge Referral Referred to [facility] Med [facility] No
[2017-09-23] MEDS ORDERED: BISACODYL 5 MG TABLET.DR (FP) PO ONE (16:30)
[2017-09-23] MEDS ORDERED: PEG 3350/NA SULF BICARB CL/KCL 4000 ML SOLN.RECON PO ONE (18:00)
[2017-09-24] MEDS: SUCRALFATE 1 GM/10 ML UNIT DOSE CUPS PO SCH ×3 (06:08→18:03)
[2017-09-24] MEDS: IRON SUCROSE INJECTION 200 MG in SODIUM CHLORIDE 240 ML IVPB SCH (06:18)
[2017-09-24 07:29] LABS: BASO % 1.1 % (0-2.0); EOS % 3.9 % (0-4.5); HEMATOCRIT 27.9 % (35.4-49); LYMPH % 15.5 % (8-40); MCH 25.7 pg (25.7-33.7); MCHC 32.1 g/dl (32.0-35.9); MEAN CELL VOLUME 79.8 fl (80-96); MEAN PLT VOLUME 7.3 fl (7.5-11.1); MONO % 11.5 % (3.8-10.2); PLATELET COUNT 393 K/MM3 (134-434); RDW 21.2 % (11.9-15.9); WHITE BLOOD COUNT 8.7 K/mm3 (4.0-10.0)
[2017-09-24 07:49] LABS: CHLORIDE 103 mmol/L (98-107); POTASSIUM 3.5 mmol/L (3.5-5.1); SODIUM 139 mmol/L (136-145)
[2017-09-24 08:15] LABS: ALBUMIN 2.1 g/dl (3.4-5.0); ALK PHOS 62 U/L (45-117); ANION GAP 11 (8-16); BILIRUBIN,DIRECT 0.8 mg/dL (0.0-0.2); BILIRUBIN,TOTAL 1.4 mg/dL (0.2-1.0); BLOOD UREA NITROGEN 7 mg/dL (7-18); CALCIUM 7.6 mg/dL (8.5-10.1); CO2 25 mmol/L (21-32); CREATININE 0.7 mg/dL (0.7-1.3); GLUCOSE,RANDOM 92 mg/dL (74-106); SGOT/AST 28 U/L (15-37); SGPT/ALT 19 U/L (12-78); TOT PROT 6.4 g/dl (6.4-8.2)
[2017-09-24 09:42] LABS: ANISOCYTOSIS 2+; MACROCYTOSIS 0; PLATELET ESTIMATE NORMAL
--- NOTE | 2017-09-24 10:53 | PATH ---
Surgical Pathology Report Patient Name: [facility]ITA [facility]. Rec. #: [id number] /Age/Gender: 1965 (Age: 52) / M Account: [id number] Location: [address] [place] [address] Taken: 09/21/2017 Received: 09/21/2017 Reported: 09/24/2017 Physicians: Emili Cervantes M.D. Specimen(s) Received A: BX 2ND PORTION DUODENUM B: BX ANTRUM AND BODY Clinical History Anemia, GI bleeding Post-operative diagnosis: Gastritis, gastric ulcer, esophageal varices Final Diagnosis A. DUODENUM, SECOND PORTION, BIOPSY: SMALL BOWEL MUCOSA WITHOUT SIGNIFICANT PATHOLOGIC FINDINGS. B. STOMACH, ANTRUM AND BODY, BIOPSY: GASTRIC ANTRAL AND BODY MUCOSA WITH MILD CHRONIC GASTRITIS. IMMUNOHISTOCHEMICAL STAIN FOR H. PYLORI IS NEGATIVE. Electronically Signed Alice Harley M.D. Gross Description A. Received in formalin, labeled "biopsy second portion duodenum" are 2 jo, irregular portions of soft tissue measuring 0.4 cm. in greatest dimension. The specimens are submitted in toto in one cassette. B. Received in formalin, labeled "biopsy antrum and body" are 2 jo, irregular portions of soft tissue measuring 0.4 cm. in greatest dimension. The specimens are submitted in toto in one cassette. LEANDRO/09/21/2017 rafa/09/21/2017
[2017-09-24] MEDS ORDERED: PROPOFOL 20 ML ONE ×3 (11:49)
--- NOTE | 2017-09-24 12:43 | PROC ---
Endoscopy Procedure Endoscopy procedure completed. Please see scanned procedure report. Colitis form ascending colon to prox. descending colon. Suspect IBD/US. Diet, labs, medications ordered. Follow as OP in 1 week.
[2017-09-24] MEDS ORDERED: DEXTROSE 5%-WATER 100 ML IVPB ONE (13:22)
[2017-09-24] MEDS: PANTOPRAZOLE 40 MG TABLET (FP) PO SCH (13:27)
[2017-09-24] MEDS: CEFTRIAXONE 2 GM in DEXTROSE 5%-WATER 100 ML IVPB SCH (13:28)
[2017-09-24] MEDS: oxyCODONE HCL 5 MG TABLET PO PRN (13:44)
[2017-09-24] MEDS ORDERED: PT OWN MED DRAWER 7, Y5N ONE ×3 (13:54→16:03)
[2017-09-24] MEDS ORDERED: MESALAMINE 800 MG TABLET.DR PO SCH (14:00)
[2017-09-24 14:30] VITALS: BP 98/67; PULSE 84; TEMP 98
--- NOTE | 2017-09-24 14:35 | PN ---
Teaching Attending Note Name of Resident: Kati Yuen ATTENDING PHYSICIAN STATEMENT I saw and evaluated the patient. I reviewed the resident's note and discussed the case with the resident. I agree with the resident's findings and plan as documented. SUBJECTIVE:asymptomatic. denies CP,SOB, fever, chills, dizzyness, N/V/C/D OBJECTIVE: Last Vital Signs Temp Pulse Resp BP Pulse Ox 98 F 84 18 98/67 95 09/24/17 14:29 09/24/17 14:29 09/24/17 14:29 09/24/17 14:29 09/24/17 13:07 General NAD ASSESSMENT AND PLAN: 52yo M with PMH continuous ETOH abuse and HCV sent to the ER for anemia and found to have cirrhosis and colitis 1. Acute GI bleed- s/p EGD showing multiple non bleeding ulcers in antrum/body. several esophageal varices s/p banding and portal hypertensive gastropathy. tolerating diet. NPO for colonoscopy today. will f/u. will need close GI follow up as outpatient 2. Iron def anemia and acute blood loss anemia- s/p 2 units PRBC this admission. Hgb stable. cont venofer day 5. can d/c on oral supplementation. no indication for txn at this time. 3. Acute colitis- plan for colonsocopy today as GI unclear if has true colitis. will cont Ceftriaxone/flagyl at this time. f/u wtih colonoscopy 4. Hyponatremia- dehydration. now resolved 5. Cirrhosis- has hx of HCV however can also be combination of etoh use. was treated with Pegasus 20+years ago. was told last viral load was low. hepatitis panel pending. Gi on board. 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 splenic varices 7. Continuous ETOH abuse- CIWA 0. off librium protocol. counselled on risks assoc with continued drinking. considering inpatient rehab at this time. 8. pseudohypocalcemia- Ca 8.8 9. DVT ppx- SCD 10. d/c home pending results of colonoscopy
[2017-09-24] MEDS: NADOLOL 40 MG TABLET (FP) PO SCH (15:55)
--- NOTE | 2017-09-24 17:20 | DS ---
Physical Exam: SUBJECTIVE: Patient seen and examined. No new c/o, No abdominal pain , no nausea or vomiting, no black stools or marco blood per rectum. Tolerating orally. Sore throat improved. OBJECTIVE: Vital Signs Period Temp Pulse Resp BP Sys/Orantes Pulse Ox Last 24 Hr 97.7 F-98.2 F 80-90 18-20 94-118/52-70 92-95 Vital Signs Temp 98 F 09/24/17 14:29 Pulse 84 09/24/17 14:29 Resp 18 09/24/17 14:29 BP 98/67 09/24/17 14:29 Pulse Ox 95 09/24/17 13:07 PHYSICAL EXAM GENERAL: The patient is awake, alert, and fully oriented, in no acute distress. LUNGS: Breath sounds equal, clear to auscultation bilaterally HEART: Regular rate and rhythm, S1, S2 ABDOMEN: Soft, nontender, nondistended, normoactive bowel sounds EXTREMITIES: 2+ pulses, warm, well-perfused, no edema. NEUROLOGICAL: AAOx3. No tremors, normal speech and gait. LABS Laboratory Results - last 24 hr 09/19/17 09/21/17 09/24/17 20:00 06:00 06:20 WBC 8.7 RBC 3.50 L Hgb 9.0 L D Hct 27.9 L MCV 79.8 L MCH 25.7 MCHC 32.1 RDW 21.2 H Plt Count 393 D MPV 7.3 L Absolute Neuts (auto) 5.9 Neutrophils % 68.0 Lymphocytes % 15.5 D Monocytes % 11.5 H Eosinophils % 3.9 Basophils % 1.1 Nucleated RBC % 0 Hypochromia 1+ Platelet Estimate Normal Polychromasia 2+ Poikilocytosis 0 Anisocytosis 2+ Microcytosis 2+ Macrocytosis 0 Sodium Potassium Chloride Carbon Dioxide Anion Gap BUN Creatinine Creat Clearance w eGFR Random Glucose Calcium Total Bilirubin Direct Bilirubin AST ALT Alkaline Phosphatase Total Protein Albumin Hepatitis A IgM Ab Negative Hep Bs Antigen Negative Hep B Core IgM Ab Negative Hepatitis C Antibody 8.0 H Blood Type O POSITIVE Antibody Screen Negative Crossmatch See Detail 09/24/17 06:20 WBC RBC Hgb Hct MCV MCH MCHC RDW Plt Count MPV Absolute Neuts (auto) Neutrophils % Lymphocytes % Monocytes % Eosinophils % Basophils % Nucleated RBC % Hypochromia Platelet Estimate Polychromasia Poikilocytosis Anisocytosis Microcytosis Macrocytosis Sodium 139 Potassium 3.5 Chloride 103 Carbon Dioxide 25 Anion Gap 11 BUN 7 Creatinine 0.7 Creat Clearance w eGFR > 60 Random Glucose 92 Calcium 7.6 L Total Bilirubin 1.4 H D Direct Bilirubin 0.8 H AST 28 ALT 19 Alkaline Phosphatase 62 Total Protein 6.4 Albumin 2.1 L Hepatitis A IgM Ab Hep Bs Antigen Hep B Core IgM Ab Hepatitis C Antibody Blood Type Antibody Screen Crossmatch Ambulatory Orders Fexofenadine/Pseudoephedrine [Melissa-D 12 Hour Tablet] 1 each PO DAILY Cephalexin [Keflex] 500 mg PO BID #24 capsule 09/24/17 Ferrous Sulfate [Feosol] 325 mg PO DAILY #30 tablet 09/24/17 Nadolol [Corgard -] 40 mg PO DAILY #30 tablet 09/24/17 Pantoprazole Sodium [Protonix -] 40 mg PO BID #60 tablet.ec 09/24/17 Sucralfate Oral Suspension [Carafate Oral Suspension -] 1 gm PO ACHS #7 bottle 09/24/17 metroNIDAZOLE [Flagyl -] 500 mg PO TID #37 tablet 09/24/17 EGD: 09/21/17 portal hypertensive gastropathy multiple, superficial, non-bleeding gastric ulcers in the antrum and the body, biopsies taken 2 columns, grade 3 EV w/o stigmata of recent, active, or impending bleeding. 6 bands were applied successfully. normal proximal small bowel. HOSPITAL COURSE: Date of Admission:09/19/17 Date of Discharge: 09/24/17 Patient is a 52 yo M had not followed with a PMD for over 10years, with signif PMHx of Hepatitis C (completed treatment); Alcohol abuse; Hemorrhoids; BCC was sent by his PCP for blood transfusion for symptomatic anemia. Pt came in with symptomatic anemia requiring Blood transfusion likely secondary to UGI bleed and received 2uPrbc with H&H stable at discharge. Pt had stool occult positive, Ucfpkwbizn-XOE-70.3, Iron def (ferritin 9.7), RDW-high. He received iv venicar for 5 days. Pt was managed for Acute colitis noted on CT abd/pelvis w/o contrast, with inital dose of levaquin (d/c with QTc-512) and continued on ceftriaxone and flagyl for 5 days. He also had endoscopy, that showed non-bleeding gastric ulcers with stage 3 esophageal varices. Pt was placed on carafate, nadalol and continued on protonix. To follow biopsies as an outpatient. Pt will follow up for Liver cirrhosis, which was noted on imaging as an outpatient, despite completing treatment for Hep C in the year 1999 with undetectable viral load. Pt was offered detox at [facility] but declined, to follow up with AA for Alcohol abuse. He was not in withdrawal at presentation Pt was discharged home to follow up with a compliance officer- Dr Chiang for biopsy results. 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 You had endoscopy done since you had been bleeding from your gastrointestinal tract that showed dilated vessels in the esophagus requiring banding Colonoscopy showed inflammation of your colon with outpouching of the intestine We are continuing you on oral antibiotics- Keflex 2000mg twice a day and flagyl 500mg three times a day for 7 more days We are also placing you on medications to protect you from further bleeding: Nadolol 40mg daily Sucralfate 1g PO before meals and at night Mesalamine 80mg three times a day Protonix 40mg twice a day Biopsies were taken during colonoscopy, follow up as an outpatient for results of the biopsy with Dr Chiang in one week Imaging showed you have cirrhosis of the liver, although you had completed treatment for hepatitis C in the past Follow up with Dr Chiang or your previous liver doctor for follow up on the liver and need for treatment We are recommending you follow up for alcohol rehabilitation You could go to [facility], or follow up with [facility] It is important that you quit alcohol use considering the amount of damage currently done to your liver, to prevent your liver from worsening Follow up with your primary care doctor in one week If you feel your symptoms are not improving, please go to the nearest emergency room. Referrals: Jose Angel Chiang MD [Staff Physician] - 1 Week Disposition: HOME - Home Medications Comprehensive Discharge Medication List: Ambulatory Orders Fexofenadine/Pseudoephedrine [Melissa-D 12 Hour Tablet] 1 each PO DAILY Mesalamine [Asacol HD -] 800 mg PO TID #90 tablet.dr 09/24/17 Nadolol [Corgard -] 40 mg PO DAILY #30 tablet 09/24/17 Pantoprazole Sodium [Protonix -] 40 mg PO BID #60 tablet.ec 09/24/17 Sucralfate Oral Suspension [Carafate Oral Suspension -] 1 gm PO ACHS #7 bottle 09/24/17 This patient is new to me today: No Emergency Visit: Yes ED Registration Date: 09/19/17 Care time: The patient presented to the Emergency Department on the above date and was hospitalized for further evaluation of their emergent condition. Critical Care patient: No - Discharge Referral Referred to [facility] Med P.C.: No
--- NOTE | 2017-09-25 15:21 | PATH ---
Surgical Pathology Report Patient Name: SARITA RODRIGUES [facility]. Rec. #: [id number] /Age/Gender: 1965 (Age: 52) / M Account: [id number] Location: [address] [place] [address]/[facility] Taken: 09/24/2017 Received: 09/24/2017 Reported: 09/25/2017 Physicians: Emili Cervantes M.D. Specimen(s) Received A: BX TERMINAL ILEUM B: ASCENDING COLON BX C: DISTAL ASCENDING COLON BX D: BX TRANSVERSE COLON E: BX DISTAL TRANSVERSE COLON F: BX DESCENDING COLON G: BX DISTAL DESCENDING COLON H: BX SIGMOID I: BX RECTUM Clinical History Anemia Postoperative diagnosis: Diverticulosis, colitis Final Diagnosis A. TERMINAL ILEUM, BIOPSY: ILEAL MUCOSA WITHOUT SIGNIFICANT PATHOLOGIC FINDINGS. B. ASCENDING COLON, BIOPSY: COLONIC MUCOSA WITH MILD CHRONIC ACTIVE COLITIS AND FOCAL ULCERATION. C. DISTAL ASCENDING COLON, BIOPSY: COLONIC MUCOSA WITH MILD CHRONIC ACTIVE COLITIS AND RARE MICROGRANULOMAS. D. TRANSVERSE COLON, BIOPSY: COLONIC MUCOSA WITH MILD ARCHITECTURAL DISTORTION, INCREASED ACUTE AND CHRONIC INFLAMMATORY INFILTRATE WITHIN LAMINA PROPRIA. E. DISTAL TRANSVERSE COLON, BIOPSY: COLONIC MUCOSA WITH MILD ARCHITECTURAL DISTORTION, AND MILD INCREASE IN CHRONIC INFLAMMATORY INFILTRATE WITHIN THE LAMINA PROPRIA F. DESCENDING COLON, BIOPSY: COLONIC MUCOSA WITH MODERATE CHRONIC ACTIVE COLITIS AND ASSOCIATED ULCERATION. G. DISTAL DESCENDING COLON, BIOPSY: COLONIC MUCOSA WITH MILD CHRONIC ACTIVE COLITIS. H. SIGMOID COLON, BIOPSY: COLONIC MUCOSA WITH MILD CHRONIC ACTIVE COLITIS. I. RECTUM, BIOPSY: COLONIC MUCOSA WITH MILD TO MODERATE CHRONIC ACTIVE COLITIS. Comment: No dysplasia identified. AFB and fungal (PAS) special stains (blocks B, C, F) are negative. Findings are non-specific. Differential diagnosis is broad and includes infection, medication, and inflammatory bowel disease (IBD). Suggest clinical correlation. . Electronically Signed Alice Harley M.D. Gross Description A. Received in formalin, labeled "biopsy terminal ileum" is a jo, irregular portion of soft tissue measuring 0.2 cm. in greatest dimension. The specimen is submitted in toto in one cassette. B. Received in formalin, labeled "biopsy ascending colon" are 3 jo, irregular portions of soft tissue ranging from 0.3-0.4 cm. in greatest dimension. The specimens are submitted in toto in one cassette. C. Received in formalin, labeled "biopsy distal ascending colon" are 2 jo, irregular portions of soft tissue measuring 0.2 and 0.5 cm. in greatest dimension. The specimens are submitted in toto in one cassette. D. Received in formalin, labeled "biopsy transverse colon" is a jo, irregular portion of soft tissue measuring 0.4 cm. in greatest dimension. The specimen is submitted in toto in one cassette. E. Received in formalin, labeled "biopsy distal transverse colon" is a jo, irregular portion of soft tissue measuring 0.4 cm. in greatest dimension. The specimen is submitted in toto in one cassette. F. Received in formalin, labeled "biopsy descending colon" are 3 jo, irregular portions of soft tissue ranging from 0.2-0.5 cm. in greatest dimension. The specimens are submitted in toto in one cassette. G. Received in formalin, labeled "biopsy distal descending colon" are 3 jo, irregular portions of soft tissue averaging 0.3 cm. in greatest dimension. The specimens are submitted in toto in one cassette. H. Received in formalin, labeled "biopsy sigmoid colon" are 3 jo, irregular portions of soft tissue ranging from 0.3-0.5 cm. in greatest dimension. The specimens are submitted in toto in one cassette. I. Received in formalin, labeled "biopsy rectum" are 3 jo, irregular portions of soft tissue ranging from 0.2-0.6 cm. in greatest dimension. The specimens are submitted in toto in one cassette. 09/24/2017 [facility]09/24/2017
== END 2017-09-24 18:51 | disposition home or self-care (01) | DRG 253 ==
LOC: FER 11:16 → J4W 17:15 → J5S 09-22 17:13
PROVIDERS: ADMIT Internal Medicine; ATTEND Internal Medicine
PROC: 30233N1 Transfusion of Nonautologous Red Blood Cells into Peripheral Vein, Percutaneous Approach (ICD-10-PCS; 2017-09-19)
PROC: 0DB98ZX Excision of Duodenum, Via Natural or Artificial Opening Endoscopic, Diagnostic (ICD-10-PCS; 2017-09-21)
PROC: 0DB68ZX Excision of Stomach, Via Natural or Artificial Opening Endoscopic, Diagnostic (ICD-10-PCS; 2017-09-21)
PROC: 06L38CZ Occlusion of Esophageal Vein with Extraluminal Device, Via Natural or Artificial Opening Endoscopic (ICD-10-PCS; principal; 2017-09-21 07:30)
PROC: 0DBK8ZX Excision of Ascending Colon, Via Natural or Artificial Opening Endoscopic, Diagnostic (ICD-10-PCS; 2017-09-24)
PROC: 0DBN8ZX Excision of Sigmoid Colon, Via Natural or Artificial Opening Endoscopic, Diagnostic (ICD-10-PCS; 2017-09-24)
PROC: 0DBP8ZX Excision of Rectum, Via Natural or Artificial Opening Endoscopic, Diagnostic (ICD-10-PCS; 2017-09-24)
PROC: 0DBM8ZX Excision of Descending Colon, Via Natural or Artificial Opening Endoscopic, Diagnostic (ICD-10-PCS; 2017-09-24)
PROC: 0DBL8ZX Excision of Transverse Colon, Via Natural or Artificial Opening Endoscopic, Diagnostic (ICD-10-PCS; 2017-09-24)
DX: K92.2 Gastrointestinal hemorrhage, unspecified (principal); K52.9 Noninfective gastroenteritis and colitis, unspecified; K76.6 Portal hypertension; E87.1 Hypo-osmolality and hyponatremia; K70.31 Alcoholic cirrhosis of liver with ascites; E83.51 Hypocalcemia; D62 Acute posthemorrhagic anemia; R13.10 Dysphagia, unspecified; E86.0 Dehydration; Z87.891 Personal history of nicotine dependence; F10.10 Alcohol abuse, uncomplicated; Z88.0 Allergy status to penicillin; M54.9 Dorsalgia, unspecified; D50.9 Iron deficiency anemia, unspecified; B18.2 Chronic viral hepatitis C; I85.00 Esophageal varices without bleeding; K29.60 Other gastritis without bleeding; K25.9 Gastric ulcer, unspecified as acute or chronic, without hemorrhage or perforation; K31.89 Other diseases of stomach and duodenum; I86.8 Varicose veins of other specified sites; K64.8 Other hemorrhoids; E66.9 Obesity, unspecified; Z68.26 Body mass index [BMI] 26.0-26.9, adult
CPT/HCPCS: 36415; 36430; 71045-TC-FY; 74176-TC; 80048; 80053; 80074; 81003; 82248; 82272; 82550; 82728; 82784; 83516; 83540; 83550; 83690; 83735; 84100; 84466; 84484; 85025; 85027; 85610; 86850; 86900; 86901; 86922; 87045; 87046; 87177; 87209; 87522; 88305-TC; 93005; 93010; 99282-25; J1756; J7030; P9038; P9058

== ENCOUNTER 2018-01-13 06:14 | Inpatient (IN) | payer OTHER ==
--- NOTE | 2018-01-13 07:36 | PDOC ---
History of Present Illness - General History Source: Family Exam Limitations: Clinical Condition <Sandy Monreal - Last Filed: 01/13/18 11:02> - General History Source: Family, Old Records Exam Limitations: Clinical Condition - History of Present Illness Initial Comments: 52 y/o male presenting to [facility] ER via private auto for family complaint of altered mental status worsening over the past week. Pts fiance found him covered in feces in bed this morning. Reports he has complained of depressed mood, insomnia, and fatigue for the past week. Family initially thought this was related to the unexpected of his sister on Sunday (01/07/2018). Pt is taking sertraline for depression. The dose was increased last week but not tolerated well. Dose was decreased to former level on Sunday (01/07/2018). Pt has a h/o liver cirrhosis secondary to chronic EtOH abuse and/or Hep C infection (s/p treatment). Family denies recent EtOH intake. He was seen in this facility 09/2017 for symptomatic anemia and GI bleed. EGD by Андрей (09/19/2017): Large varices in distal esophagus and gastric antrum. No bleeding was noted. Colonoscopy by Андрей (09/24/2017): Colitis with numerous, ulcerated pseudopolyps ascending to proximal descending colon. Concern for IBD vs UC. PCP: [facility] GI: Андрей Social Hx: - EtOH: H/o abuse, sober for many years, relapse 09/2017, family states none recently -Tobacco: former smoker - Street Drugs: denies Medical Hx: - Depression - Portal hypertension - UGI Bleed, required blood transfusion - Hep C, completed treatment - Liver Cirrhosis - Hemorrhoids Surgical Hx: - Pt denies past surgical history. <Eulalio Reyes - Last Filed: 01/13/18 12:11> - General Chief Complaint: Altered Mental Status Stated Complaint: ALTERED MENTAL STATUS Time Seen by Provider: 01/13/18 07:08 Past History <Sandy Monreal - Last Filed: 01/13/18 11:02> - Past Medical History Anemia: No Asthma: Yes COPD: No GI Disorders: Yes (GI Bleed s/p Blood transfusions) Other medical history: Hemorrhoids and Depression - Immunization History TDAP Vaccination: Yes (11/13/2016) Immunization Up to Date: Yes - Suicide/Smoking/Psychosocial Hx Smoking History: Smoker current status UNK Have you smoked in the past 12 months: Yes Number of Cigarettes Smoked Daily: 24 (Currently chews tobacco ) If you are a former smoker, when did you quit?: 2 years Information on smoking cessation initiated: Yes 'Breaking Loose' booklet given: 01/13/18 Hx Alcohol Use: No Drug/Substance Use Hx: No Substance Use Type: None <Eulalio Reyes - Last Filed: 01/13/18 12:11> - Past Medical History Allergies/Adverse Reactions: Allergies Allergy/AdvReac Type Severity Reaction Status Date / Time Penicillins Allergy Mild Rash Verified 01/13/18 09:50 Home Medications: Ambulatory Orders Docusate Sodium [Colace] 100 mg PO DAILY 01/13/18 Omeprazole 20 mg PO DAILY 01/13/18 Sertraline HCl [Zoloft] 100 mg PO DAILY 01/13/18 Zolpidem Tartrate [Ambien] 10 mg PO DAILY 01/13/18 Review of Systems - Review of Systems Able to Perform ROS?: No Comments:: Pt with altered mental status. <Eulalio Reyes - Last Filed: 01/13/18 12:11> *Physical Exam - Vital Signs Last Vital Signs Temp Pulse Resp BP Pulse Ox 98.3 F 75 18 122/63 100 01/13/18 08:48 01/13/18 08:48 01/13/18 08:48 01/13/18 08:48 01/13/18 08:48 <Sandy Monreal - Last Filed: 01/13/18 11:02> - Vital Signs Last Vital Signs Temp Pulse Resp BP Pulse Ox 97.6 F 87 16 111/68 100 01/13/18 06:34 01/13/18 06:34 01/13/18 06:34 01/13/18 06:34 01/13/18 06:34 - Physical Exam Comments: Constitutional: Well-developed, well-nourished male. Found semi-fowlers in hospital bed. Alert and oriented to person only. Answered questions with nonsensical phrases. Speech was non-labored, non-pressured. HEENT: Normocephalic. No obvious external signs of trauma. Hearing grossly normal. No nasal discharge. Neck is supple, trachea is midline. Cardiovascular: Regular rate and regular rhythm. No murmur, rubs, clicks, or gallops. Peripheral pulses: Radial pulses full. Respiratory: Breathing unlabored. Equal chest rise and fall. Clear to auscultation bilaterally. No stridor, no wheezing, no rhonchi. Gastrointestinal: abdomen is soft, non-tender, non-distended. No fluid wave or caput medusa. No pulsatile masses. No overlying skin lesions or obvious signs of trauma. Neuro: Alert and oriented only to person. Moving all four extremities spontaneously. Unable to assess strength as pt would not follow commands. Skin: Warm, dry, and intact. No bruising, rashes, or other lesions. No palpable nodules. MALE RECTAL: Good sphincter tone with no bleeding anal, perineal or rectal lesions. Stool melanotic. Prostate is not tender, enlarged, boggy, or nodular. RN chaperoned exam. <Eulalio Reyes - Last Filed: 01/13/18 12:11> ED Treatment Course - LABORATORY CBC & Chemistry Diagram: 01/13/18 08:10 01/13/18 08:10 - ADDITIONAL ORDERS Additional order review: Laboratory Results 01/13/18 01/13/18 01/13/18 08:10 08:10 08:10 Sodium Potassium Chloride Carbon Dioxide Anion Gap BUN Creatinine Creat Clearance w eGFR Random Glucose Calcium Total Bilirubin AST ALT Alkaline Phosphatase Ammonia 130.42 H Creatine Kinase Cancelled Creatine Kinase Index CK-MB (CK-2) Troponin I Cancelled Total Protein Albumin TSH Stool Occult Blood Salicylates < 1.7 L Acetaminophen < 2.0 L Alcohol, Quantitative 01/13/18 01/13/18 01/13/18 08:10 08:10 08:10 Sodium 142 Potassium 3.7 Chloride 111 H Carbon Dioxide 21 Anion Gap 11 BUN 16 Creatinine 0.5 L Creat Clearance w eGFR > 60 Random Glucose 78 Calcium 8.4 L Total Bilirubin 1.6 H AST 38 H ALT 26 Alkaline Phosphatase 98 Ammonia Creatine Kinase 603 H Creatine Kinase Index 0.6 CK-MB (CK-2) 3.9 H Troponin I < 0.02 Total Protein 6.7 Albumin 2.7 L TSH Cancelled 3.63 Stool Occult Blood Positive Salicylates Acetaminophen Alcohol, Quantitative < 3.0 01/13/18 08:10 RBC 3.42 L MCV 92.4 MCHC 32.4 RDW 14.0 D MPV 7.2 L Neutrophils % 70.3 Lymphocytes % 13.5 Monocytes % 14.3 H Eosinophils % 1.3 Basophils % 0.6 - Medications Given in the ED: ED Medications Discontinued Medications Generic Name Dose Route Start Last Admin Trade Name Sofia PRN Reason Stop Dose Admin Ceftriaxone Sodium 1,000 mg/ 50 mls @ 100 mls/hr 01/13/18 09:38 01/13/18 10: 36 Dextrose IVPB 01/13/18 10:07 100 mls/hr ONCE ONE Administration Lactulose 20 gm 01/13/18 09:34 01/13/18 10:35 Cephulac (Oral Use) PO 01/13/18 09:35 20 gm ONCE ONE Administration Pantoprazole Sodium 40 mg 01/13/18 08:29 01/13/18 10:34 Protonix Iv IVPUSH 01/13/18 08:30 Not Given ONCE ONE Pantoprazole Sodium 80 mg 01/13/18 08:38 01/13/18 10:00 Protonix Iv IVPUSH 01/13/18 08:39 80 mg ONCE ONE Administration Sodium Chloride 1,000 ml 01/13/18 07:39 01/13/18 08:34 Normal Saline - IV 01/13/18 07:40 1,000 ml ONCE ONE Administration <Sandy Monreal - Last Filed: 01/13/18 11:02> - LABORATORY CBC & Chemistry Diagram: 01/13/18 08:10 01/13/18 08:10 <Eulalio Reyes - Last Filed: 01/13/18 12:11> Medical Decision Making - Medical Decision Making *Reviewed vital signs, nursing notes, and prior visit documentation (if available). 52 y/o male with altered mental status worsening over course of one week. On sertraline. H/o EtOH abuse, depression, and liver cirrhosis. Afebrile. Vitals unremarkable. D/D: EtOH abuse, metabolic encephalopathy, severely decompensated major depression, hypothyroidism, serotonin syndrome. Less likely Serotonin Syndrome as pt is not diaphoretic, tremulous, tachycardic , hypotensive, and no ocular clonus. Melanotic stool. Hemoccult card positive.Concern for GI bleed. H/H stable. Will start protonix. Ammonia level elevated. Concern for hepatic encephalopathy. Will start lactulose and rifaximin. Salicylates, acetaminophen, and alcohol levels not elevated. Low suspicion for acute ingestion. POCUS of Abdomen did not reveal any intra-abdominal fluid collection. Low suspicion for SBP. Will start ceftriaxone for prophylaxis. 10:[address] Rapp. Requested blood cultures. 10:28 [facility] 11:[address] Olivares. Agrees to admit pt to telemetry on inpatient status. <Eulalio Reyes - Last Filed: 01/13/18 12:11> *DC/Admit/Observation/Transfer - Discharge Dispostion Decision to Admit order: Yes Decision to Admit order Date/Time: 01/13/18 11:03 <Sandy Monreal - Last Filed: 01/13/18 11:02> - Discharge Dispostion Decision to Admit order: Yes <Eulalio Reyes - Last Filed: 01/13/18 12:11> Diagnosis at time of Disposition: Hepatic encephalopathy Altered mental status Qualifiers: Altered mental status type: disorientation Qualified Code(s): R41.0 - Disorientation, unspecified Gastrointestinal bleed Qualifiers: GI bleed type/associated pathology: unspecified gastrointestinal hemorrhage type Qualified Code(s): K92.2 - Gastrointestinal hemorrhage, unspecified - Discharge Dispostion Condition at time of disposition: Guarded - Referrals Referrals: Romelia Ruelas MD [Primary Care Provider] - - Patient Instructions - Post Discharge Activity
[2018-01-13] MEDS ORDERED: SODIUM CHLORIDE 0.9% 500 ML INFUS.BAG IV ONE (07:39)
[2018-01-13 08:20] LABS: BASO % 0.6 % (0-2.0); EOS % 1.3 % (0-4.5); HEMATOCRIT 31.6 % (35.4-49); HEMOGLOBIN 10.2 GM/dL (11.7-16.9); LYMPH % 13.5 % (8-40); MCH 29.9 pg (25.7-33.7); MCHC 32.4 g/dl (32.0-35.9); MEAN CELL VOLUME 92.4 fl (80-96); MEAN PLT VOLUME 7.2 fl (7.5-11.1); MONO % 14.3 % (3.8-10.2); NEUT % 70.3 % (42.8-82.8); PLATELET COUNT 235 K/MM3 (134-434); RBC 3.42 M/mm3 (4.00-5.60); WHITE BLOOD COUNT 5.5 K/mm3 (4.0-10.0)
--- NOTE | 2018-01-13 08:20 | PDOC ---
Attending Attestation - Resident Resident Name: ReyesEulalio - ED Attending Attestation I have performed the following: I have examined & evaluated the patient, The case was reviewed & discussed with the resident, I agree w/resident's findings & plan - HPI HPI: 01/13/18 08:19 52 YOM with h/o Hepatitis C (completed treatment); Alcohol abuse; esophageal varices and gastritis, Hemorrhoids presenting with AMS worsening x 1 week. He has been dealing with sudden of sister ~1 week ago. He has been seeing psychiatrist, increased dose of Zoloft the week before. +poor sleep during this 1 week, but has been eating. he was found this morning naked by his fiance, soiled all over himself. ROS limited from patient due to his AMS much of information provided by family and fiance at bedside reportedly s/p rehab and has not had ETOH since 09/2017. last EGD in 09/2017 with esophageal varices requiring banding and gastric ulcers. 01/13/18 12:32 - Physicial Exam PE: 01/13/18 08:33 disheveled, altered, mildly agitated with stimuli, Alert but oriented to person only, nl conjunctiva, anicteric, dry mucus membranes; neck supple. lungs clear, RRR, abdomen soft nontender. XIE x4, no focal neuro deficits, crossing his legs. No peripheral edema. normal color for ethnicity, WWP. +melanotic stools - Medical Decision Making 01/13/18 08:34 52 YOM with Hep C, alcohol abuse, esophageal varices s/p banding, gastritis, hemorrhoids, depression p/w AMS x 1 week. DDx. AMS, delirium, ETOH w/d, [employer] mass/bleed, CVA, electrolyte/metabolic derangements, UTI, rhabdomyolysis, UGIB vs LGIB. Hepatic encephalopathy. SBP Vital signs reviewed, wnl. Prior notes reviewed, including admissions, discharges and consultations. EGD: 09/21/17 portal hypertensive gastropathy multiple, superficial, non-bleeding gastric ulcers in the antrum and the body, biopsies taken 2 columns, grade 3 EV w/o stigmata of recent, active, or impending bleeding. 6 bands were applied successfully. normal proximal small bowel. EKG normal sinus rhythm, no interval abnormalities, narrow QRS, ST and T wave segments and morphology normal. Nonspecific T wave abnormalities laboratory results and imaging reviewed, basic labs and lytes wnl, notable for improved anemia but still present, and possible hemoconcentration. trop neg, CK unremarkable, not rhabdomyolysis. awaiting UA as he self catheterizes. however, ammonia level elevated, also has clinically hepatic encephalopathy at least grade I. will give lactulose, rifaxamin, ceftriaxone for SBP coverage. IVF, hydration. Bedside Abdomen US neg for ascites or fluid pocket, but covered with abx already for bacterial translocation and infection risk given AMS, no fevers here tox screen neg, for etoh, tyl and salicylates no acute alcohol w/d currently CT head_ no bleed or CVA. CXR_ neg, unremarkable. Dispo: Admit for Hepatic encephalopathy, AMS. Discussed results and management plan with pt and family member at bedside, agree with impression and plan 01/13/18 12:32 Heart Score/ECG Review - ECG Impressions Normal ECG: Yes Comment:: 01/13/18 12:34 EKG normal sinus rhythm, no interval abnormalities, narrow QRS, ST and T wave segments and morphology normal. Nonspecific T wave abnormalities
[2018-01-13] MEDS ORDERED: PANTOPRAZOLE SODIUM 40 MG VIAL IVPUSH ONE ×2 (08:29→08:38)
[2018-01-13 09:03] LABS: ALBUMIN 2.7 g/dl (3.4-5.0); ALK PHOS 98 U/L (45-117); ANION GAP 11 MMOL/L (8-16); BILIRUBIN,TOTAL 1.6 mg/dL (0.2-1); BLOOD UREA NITROGEN 16 mg/dL (7-18); CALCIUM 8.4 mg/dL (8.5-10.1); CHLORIDE 111 mmol/L (98-107); CO2 21 mmol/L (21-32); CREATININE 0.5 mg/dL (0.55-1.3); GLUCOSE,RANDOM 78 mg/dL (74-106); POTASSIUM 3.7 mmol/L (3.5-5.1); SGOT/AST 38 U/L (15-37); SGPT/ALT 26 U/L (13-61); SODIUM 142 mmol/L (136-145); TOT PROT 6.7 g/dl (6.4-8.2)
[2018-01-13] MEDS ORDERED: PANTOPRAZOLE SODIUM 40 MG VIAL ONE (09:15)
[2018-01-13] MEDS ORDERED: PANTOPRAZOLE SODIUM 40 MG/100 ML BAG IVPB ONE (09:15)
[2018-01-13] MEDS ORDERED: LACTULOSE 20 GM/30 ML UDC (FOR ORAL USE ONLY) PO ONE (09:34)
[2018-01-13] MEDS ORDERED: CEFTRIAXONE 1,000 MG in DEXTROSE 5%-WATER - 50 ML IVPB ONE (09:38)
[2018-01-13] MEDS ORDERED: LACTULOSE 20 GM/30 ML UDC (FOR ORAL USE ONLY) ONE (09:47)
[2018-01-13] MEDS: PANTOPRAZOLE SODIUM 80 MG in SODIUM CHLORIDE 100 ML IVPB SCH ×2 (10:00→22:31)
[2018-01-13] MEDS: RIFAXIMIN 550 MG TABLET (UD) PO SCH ×2 (10:35→22:36)
--- NOTE | 2018-01-13 14:09 | CON.GI ---
Consult Consult Specialty:: Gastroenterology ( covering Dr. Lim) Referred by:: Eulalio Reyes MD Reason for Consultation:: Confusion in a cirrhotic patient - History of Present Illness Chief Complaint: Confusion History of Present Illness: 52M was found by his fiance this morning to be confused in a bed soiled with dark feces. His has exhibited episodes of confusion for the past 2 weeks which initially was attributed by his PMD, Dr Christianson as caused by an increase of his Zoloft from 100 to 150mg. He improved when it was decreased but for the past 2 days he was again confused and yesterday was hallucinating. The history is obtained from the fiance as Jim remains confused. The Zoloft was increased as he was depressed. He has not had any alcohol since being discharged from here in 09/24. At that time he was admitted with anemia. He underwent EGD and colonoscopy with Dr Chiang. EGD on 09/21/17 revealed multiple superficial gastric body and antrum ulcers in the setting of portal gastropathy and nonbleeding esophageal varices which were rubber band ligated. Colonoscopy on 09/24/17 revealed a diusse ulceratibe colitis with pseuodopolyps with sparing of the terminal ileum, sigmoid and rectum. Biopsies have however revealed diffuse chronic and active colitis. He has been constipated since that admission despite taking stool softeners. He has been c/o hemorrhoidal bleeding. He has a h/o HCV for which his fiance tells me that he was successfully treated for. He abused alcohol remotely and has stopped until he resumed daily daily intake 6 years ago in the midst of a divorce. He has not had alcohol since his 09/24 hospitalization. He has not had hepatic encephalopathy in the past. His fiance denies any recent head trauma. No chills or fever. His ammonia level is 130. Head CT is normal, His 51 year old sister 01/05 of unknown cause (ME case). - History Source History Provided By: Significant Other Limitations to Obtaining History: Clinical Condition - Past Medical History Pulmonary: Yes: COPD Gastrointestinal: Yes: Esophageal Varices (banded 09/21/17), Gastritis (portal gastropathy with ulcerations 09/21/17), Hemorrhoids, Other (colitis with pseudopolyps at 09/24/17 colonoscopy) Hepatobiliary: Yes: Cirrhosis (Alcohol related), Hepatitis C (treated in 1998) Psych: Yes: Addictions (Alcoholism, former multiple substance abuser IVDA heroin and cocaine), Depression Dermatology: Yes: Basal Cell - Past Surgical History Past Surgical History: Yes: None - Alcohol/Substance Use Hx Alcohol Use: Yes (vodka daily until 09/24) Number of Drinks Daily: 4 (Vodka) History of Substance Use: reports: Cocaine (Quit 20+ years ), Heroin (Quit 20+ years ), Marijuana - Smoking History Smoking history: Former smoker Have you smoked in the past 12 months: Yes Aproximately how many cigarettes per day: 24 (Currently chews tobacco ) If you are a former smoker, when did you quit?: 2 years - Social History Usual Living Arrangement: With Significant Other (fiance) ADL: Family Assistance Occupation: [employer] Place of : [facility] History of Recent Travel: No Home Medications - Allergies Allergies/Adverse Reactions: Allergies Allergy/AdvReac Type Severity Reaction Status Date / Time Penicillins Allergy Mild Rash Verified 01/13/18 09:50 - Home Medications Home Medications: Ambulatory Orders Docusate Sodium [Colace] 100 mg PO DAILY 01/13/18 Omeprazole 20 mg PO DAILY 01/13/18 Sertraline HCl [Zoloft] 100 mg PO DAILY 01/13/18 Zolpidem Tartrate [Ambien] 10 mg PO DAILY 01/13/18 Family Disease History - Family Disease History Family Disease History: Respiratory: Father (COPD/EMPHYSEMA) Physical Exam-GI Vital Signs: Vital Signs Temperature 98.2 F 01/13/18 13:45 Pulse Rate 98 H 01/13/18 13:45 Respiratory Rate 18 01/13/18 13:45 Blood Pressure 114/66 01/13/18 13:45 O2 Sat by Pulse Oximetry (%) 98 01/13/18 13:45 CBC,CMP WBC 5.5 K/mm3 (4.0-10.0) 01/13/18 08:10 RBC 3.42 M/mm3 (4.00-5.60) L 01/13/18 08:10 Hgb 10.2 GM/dL (11.7-16.9) L 01/13/18 08:10 Hct 31.6 % (35.4-49) L 01/13/18 08:10 MCV 92.4 fl (80-96) 01/13/18 08:10 MCH 29.9 pg (25.7-33.7) D 01/13/18 08:10 MCHC 32.4 g/dl (32.0-35.9) 01/13/18 08:10 RDW 14.0 % (11.9-15.9) D 01/13/18 08:10 Plt Count 235 K/MM3 (134-434) D 01/13/18 08:10 MPV 7.2 fl (7.5-11.1) L 01/13/18 08:10 Absolute Neuts (auto) 3.9 K/mm3 (1.5-8.0) 01/13/18 08:10 Neutrophils % 70.3 % (42.8-82.8) 01/13/18 08:10 Lymphocytes % 13.5 % (8-40) 01/13/18 08:10 Monocytes % 14.3 % (3.8-10.2) H 01/13/18 08:10 Eosinophils % 1.3 % (0-4.5) 01/13/18 08:10 Basophils % 0.6 % (0-2.0) 01/13/18 08:10 Nucleated RBC % 0 % (0-0) 01/13/18 08:10 Sodium 142 mmol/L (136-145) 01/13/18 08:10 Potassium 3.7 mmol/L (3.5-5.1) 01/13/18 08:10 Chloride 111 mmol/L (98-107) H 01/13/18 08:10 Carbon Dioxide 21 mmol/L (21-32) 01/13/18 08:10 Anion Gap 11 MMOL/L (8-16) 01/13/18 08:10 BUN 16 mg/dL (7-18) 01/13/18 08:10 Creatinine 0.5 mg/dL (0.55-1.3) L 01/13/18 08:10 Creat Clearance w eGFR > 60 (>60) 01/13/18 08:10 Random Glucose 78 mg/dL (74-106) 01/13/18 08:10 Calcium 8.4 mg/dL (8.5-10.1) L 01/13/18 08:10 Total Bilirubin 1.6 mg/dL (0.2-1) H 01/13/18 08:10 AST 38 U/L (15-37) H 01/13/18 08:10 ALT 26 U/L (13-61) 01/13/18 08:10 Alkaline Phosphatase 98 U/L (45-117) 01/13/18 08:10 Ammonia 130.42 umol/L (11-32) H 01/13/18 08:10 Creatine Kinase 603 IU/L (26-308) H 01/13/18 08:10 Creatine Kinase Index 0.6 % (0.0-5.0) 01/13/18 08:10 CK-MB (CK-2) 3.9 ng/mL (0.5-3.6) H 01/13/18 08:10 Troponin I < 0.02 ng/ml (0.00-0.05) 01/13/18 08:10 Total Protein 6.7 g/dl (6.4-8.2) 01/13/18 08:10 Albumin 2.7 g/dl (3.4-5.0) L 01/13/18 08:10 TSH 3.63 uIU/ml (0.358-3.74) 01/13/18 08:10 Current Medications Generic Name Dose Route Start Last Admin Trade Name Freq PRN Reason Stop Dose Admin Pantoprazole Sodium 80 mg/ 100 mls @ 10 mls/hr 01/13/18 09:15 01/13/18 10:00 Sodium Chloride IVPB 10 mls/hr Q10H DEMETRICE Administration 8 MG/HR Rifaximin 550 mg 01/13/18 10:00 01/13/18 10:35 Xifaxan - PO 550 mg BID DEMETRICE Administration Constitutional: Yes: Other (Confused but able to answer simple questions, not oriented) HENT: Yes: Atraumatic Neck: Yes: Supple Cardiovascular: Yes: Regular Rate and Rhythm Respiratory: Yes: CTA Bilaterally Gastrointestinal Inspection: Yes: WNL ...Auscultate: Yes: Normoactive Bowel Sounds ...Palpate: Yes: Soft, Other (nontender) ...Rectal Exam: Yes: Guaiac Positive (semisolid dark brown strongkly g pos stool , 1+ prostate) Genitourinary: Yes: Other (atrophic testicles, no hernias) Edema: No Integumentary: Yes: Tattoos Neurological: Yes: Confusion (asterixis elicited) Labs: CBC, BMP 01/13/18 08:10 01/13/18 08:10 Laboratory Tests 09/19/17 09/20/17 09/21/17 12:49 05:27 06:00 Hgb 6.9 L* Plt Count Total Bilirubin 1.4 H 2.2 H Ammonia 09/21/17 09/24/17 09/24/17 15:15 06:20 06:20 Hgb 8.5 L 9.0 L D Plt Count 393 D Total Bilirubin 1.4 H D Ammonia 01/13/18 01/13/18 01/13/18 08:10 08:10 08:10 Hgb 10.2 L Plt Count 235 D Total Bilirubin 1.6 H Ammonia 130.42 H Problem List - Problems (1) Hepatic encephalopathy Assessment/Plan: The Zofran will need to be held to exclude this as the etiology for confusion but given the asterixis hepatic encephalopathy appears to be the most likely etiology. Will add Lactulose. Bleeding from his portal gastropathy or the colitis may be triggering the encephalopathy as there is no obvious infection. Sonogram will be ordered to exclude ascites as this will predispose to SBP which is a common trigger. A neurology and psych consultation is advised. Discussed with Dr. Reyes Code(s): K72.90 - HEPATIC FAILURE, UNSPECIFIED WITHOUT COMA (2) Portal hypertensive gastropathy Code(s): K76.6 - PORTAL HYPERTENSION; K31.89 - OTHER DISEASES OF STOMACH AND DUODENUM (3) Colitis without complication Code(s): K52.9 - NONINFECTIVE GASTROENTERITIS AND COLITIS, UNSPECIFIED (4) Esophageal varices Code(s): I85.00 - ESOPHAGEAL VARICES WITHOUT BLEEDING Qualifiers: Esophageal varices bleeding: without bleeding (5) History of hepatitis C Code(s): Z86.19 - PERSONAL HISTORY OF OTHER INFECTIOUS AND PARASITIC DISEASES (6) Altered mental status Code(s): R41.82 - ALTERED MENTAL STATUS, UNSPECIFIED Qualifiers: Altered mental status type: disorientation Qualified Code(s): R41.0 - Disorientation, unspecified (7) GI bleed Code(s): K92.2 - GASTROINTESTINAL HEMORRHAGE, UNSPECIFIED Qualifiers: GI bleed type/associated pathology: unspecified gastrointestinal hemorrhage type Qualified Code(s): K92.2 - Gastrointestinal hemorrhage, unspecified (8) Alcohol abuse Code(s): F10.10 - ALCOHOL ABUSE, UNCOMPLICATED Assessment/Plan Hepatic encephalopathy due to GI bleeding, possibly due to ulceration at banded varices sites or portal gastropathy Lactulose, Rifaxin and PPI Consider neuro and psych consults Stop Zofran Sonogram to exclude ascites. Will need paracentesis to exclude SBP if found. Discussed with Dr Reyes
--- NOTE | 2018-01-13 15:48 | HP ---
CHIEF COMPLAINT: change in mental status and confusion PCP: Dr. Romelia Montanez HISTORY OF PRESENT ILLNESS: 52 yo male with PMH Depression, Portal HTN, HepC (s/p treatment) Liver Cirrhosis , hemorrhoids, Recent upper GI bleed requiring transfusion (2 units on recent admission) presented to the ED brought in by his fiance after he was found this morning confused, naked, and covered in his feces. His family notes that he has been altered and somewhat confused this week, but became much worse yesterday afternoon and evening. The fiance says she put him to bed last night and says that she checked on him throughout the night and he seemed to be sleeping fine, but when she went to check on him this morning she found him naked and covered in feces. He has never had any events like this previously as per his fiance. He currently has no complaints, and the fiance states he is slightly improved from earlier. He is alert and oriented but is not able to appropriately answer all questions. Pt has remote history of EtOH abuse, was sober for years, but relapsed in September. He denies any alcohol recently and fiance is adamant he has not had a drink since September of 2017. ER course was notable for: (1) Ammonia 130, H/H improved from prior admission (2) Salicylates/Acetaminophin/Alcohol negative (3) UA and Utox uncollected Recent Travel: none PAST MEDICAL HISTORY: Depression, Portal HTN, HepC (s/p treatment) Liver Cirrhosis, hemorrhoids, Recent upper GI bleed requiring transfusion (2 units on recent admission) PAST SURGICAL HISTORY: Social History: Smoking: Chewing tobacco, denies smoking Alcohol: As above, none since September Drugs: denies at present, remote history of cocaine and heroin (>20 yrs ago) Family History: Allergies Penicillins Allergy (Mild, Verified 01/13/18 09:50) Rash HOME MEDICATIONS: Home Medications Medication Instructions Recorded Docusate Sodium [Colace] 100 mg PO DAILY 01/13/18 Omeprazole 20 mg PO DAILY 01/13/18 Sertraline HCl [Zoloft] 100 mg PO DAILY 01/13/18 Zolpidem Tartrate [Ambien] 10 mg PO DAILY 01/13/18 REVIEW OF SYSTEMS CONSTITUTIONAL: Absent: fever, chills, diaphoresis, generalized weakness, malaise, loss of appetite, weight change HEENT: Absent: rhinorrhea, nasal congestion, throat pain, throat swelling, difficulty swallowing, mouth swelling, ear pain, eye pain, visual changes CARDIOVASCULAR: Absent: chest pain, syncope, palpitations, irregular heart rate, lightheadedness , peripheral edema RESPIRATORY: Absent: cough, shortness of breath, dyspnea with exertion, orthopnea, wheezing, stridor, hemoptysis GASTROINTESTINAL: Absent: abdominal pain, abdominal distension, nausea, vomiting, diarrhea, constipation, melena, hematochezia GENITOURINARY: Absent: dysuria, frequency, urgency, hesitancy, hematuria, flank pain, genital pain MUSCULOSKELETAL: Absent: myalgia, arthralgia, joint swelling, back pain, neck pain SKIN: Absent: rash, itching, pallor HEMATOLOGIC/IMMUNOLOGIC: Absent: easy bleeding, easy bruising, lymphadenopathy, frequent infections ENDOCRINE: Absent: unexplained weight gain, unexplained weight loss, heat intolerance, cold intolerance NEUROLOGIC: mental status changes, Absent: headache, focal weakness or paresthesias, dizziness, unsteady gait, seizure, bladder or bowel incontinence PSYCHIATRIC: anxiety, depression Absent: , suicidal or homicidal ideation, hallucinations. PHYSICAL EXAMINATION Vital Signs - 24 hr 01/13/18 01/13/18 01/13/18 06:34 08:48 13:45 Temperature 97.6 F 98.3 F 98.2 F Pulse Rate 87 Pulse Rate [ 75 98 H Right Radial] Respiratory 16 18 18 Rate Blood Pressure 111/68 Blood Pressure 122/63 114/66 [Left Arm] O2 Sat by Pulse 100 100 98 Oximetry (%) GENERAL: Alert and Oriented to person and place, Mildly confused, no acute distress HEAD: Normocephalic, atraumatic. EYES: PERRL, no scleral icterus EARS, NOSE, THROAT: oropharynx clear without exudates. Moist mucous membranes. NECK: supple without lymphadenopathy LUNGS: CTA b/l, no crackles or wheezes HEART: Regular rate and rhythm, normal S1 and S2 without murmur ABDOMEN: Soft, obese, nontender to palpation, normoactive bowel sounds MUSCULOSKELETAL: No bony deformities or tenderness. EXTREMITIES: 2+ pulses, warm, well-perfused. No peripheral edema. NEUROLOGICAL: Cranial nerves II-XII grossly intact. Normal speech. PSYCHIATRIC: Cooperative. Good eye contact. Appropriate mood and affect. SKIN: Warm, dry, no rashes or lesions noted, no jaundice noted Laboratory Results - last 24 hr 01/13/18 01/13/18 01/13/18 08:10 08:10 08:10 WBC 5.5 RBC 3.42 L Hgb 10.2 L Hct 31.6 L MCV 92.4 MCH 29.9 D MCHC 32.4 RDW 14.0 D Plt Count 235 D MPV 7.2 L Absolute Neuts (auto) 3.9 Neutrophils % 70.3 Lymphocytes % 13.5 Monocytes % 14.3 H Eosinophils % 1.3 Basophils % 0.6 Nucleated RBC % 0 Sodium 142 Potassium 3.7 Chloride 111 H Carbon Dioxide 21 Anion Gap 11 BUN 16 Creatinine 0.5 L Creat Clearance w eGFR > 60 Random Glucose 78 Calcium 8.4 L Total Bilirubin 1.6 H AST 38 H ALT 26 Alkaline Phosphatase 98 Ammonia Creatine Kinase 603 H Creatine Kinase Index 0.6 CK-MB (CK-2) 3.9 H Troponin I < 0.02 Total Protein 6.7 Albumin 2.7 L TSH 3.63 Stool Occult Blood Positive Salicylates Acetaminophen Alcohol, Quantitative < 3.0 01/13/18 01/13/18 01/13/18 08:10 08:10 08:10 WBC RBC Hgb Hct MCV MCH MCHC RDW Plt Count MPV Absolute Neuts (auto) Neutrophils % Lymphocytes % Monocytes % Eosinophils % Basophils % Nucleated RBC % Sodium Potassium Chloride Carbon Dioxide Anion Gap BUN Creatinine Creat Clearance w eGFR Random Glucose Calcium Total Bilirubin AST ALT Alkaline Phosphatase Ammonia 130.42 H Creatine Kinase Creatine Kinase Index CK-MB (CK-2) Troponin I Total Protein Albumin TSH Cancelled Stool Occult Blood Salicylates < 1.7 L Acetaminophen < 2.0 L Alcohol, Quantitative 01/13/18 08:10 WBC RBC Hgb Hct MCV MCH MCHC RDW Plt Count MPV Absolute Neuts (auto) Neutrophils % Lymphocytes % Monocytes % Eosinophils % Basophils % Nucleated RBC % Sodium Potassium Chloride Carbon Dioxide Anion Gap BUN Creatinine Creat Clearance w eGFR Random Glucose Calcium Total Bilirubin AST ALT Alkaline Phosphatase Ammonia Creatine Kinase Cancelled Creatine Kinase Index CK-MB (CK-2) Troponin I Cancelled Total Protein Albumin TSH Stool Occult Blood Salicylates Acetaminophen Alcohol, Quantitative ASSESSMENT/PLAN: 52 yo male with PMH Depression, Portal HTN, HepC (s/p treatment) Liver Cirrhosis , hemorrhoids, Recent upper GI bleed requiring transfusion (2 units on recent admission) admitted with mental status changes and confusion. Acute Toxic Metabolic Encephalopathy -Pt with known history of cirrhosis likely secondary to HepC and chronic EtOH Abuse -Ammonia noted 130 -Lactulose 20 mg PO TID, titrate for 3 bowel movements / day -Rifaximin 550 mg PO BID -UA/Urine Tox pending collection -GI Consult appreciated Anemia -Known hx iron deficiency anemia on recent admission secondary to GI losses -Recent GI bleeding requiring 2 units PRBCs -EGD and Colonoscopy from previous admission noted, colitis with numerous pseudopolyps ascending to proximal descending colon, Large varices distal esophagus/gastric antrum -H/H stable , improved from previous admission -Stool occult positive (could be secondary to known hemorrhoids) -Repeat CBC to r/o acute bleed -Reticulocytes, Iron studies in AM -Protonix Drip Depression -Zoloft recently increased to 150 mg Daily, but pt did not tolerate, decreased back to 100 mg PO Daily on 01/07/2018 -Currently stable on home doses as per pts family DVT Prophylaxis Lovenox 40 mg SQ Daily FEN -Fluids: none -Electrolytes: No electrolyte abnormalities, BMP in AM -Nutrition: Regular Diet Disposition Telemetry Visit type - Emergency Visit Emergency Visit: Yes ED Registration Date: 01/13/18 Care time: The patient presented to the Emergency Department on the above date and was hospitalized for further evaluation of their emergent condition. - New Patient This patient is new to me today: Yes Date on this admission: 01/13/18 - Critical Care Critical Care patient: No
--- NOTE | 2018-01-13 16:08 | PN ---
Teaching Attending Note Name of Resident: Amor Stern ATTENDING PHYSICIAN STATEMENT I saw and evaluated the patient. I reviewed the resident's note and discussed the case with the resident. I agree with the resident's findings and plan as documented. HPI is per fiance as pt is unable to provide information SUBJECTIVE:52yo M with PMH Remote ETOH abuse, HCV s/p tx, cirrhosis due to ETOH/ HCV, depression and iron def anemia with admission earlier this year for Upper GI bleed where he was found to have multiple non-bleeding ulcers and esophageal varices and portal HTN presented with progressively worsening confusion. hard to state when confusion started as he lost his sister almost 2 weeks ago and has been inconsolible. his Zoloft was increased from 100 to 150mg however after a few days he was noted to be sleep walking and he reduced his dose back to 100mg. yesterday was when she knew somehting wasnt right as he was found covered in feces. she said he has not been complaining of anything and was not acting unsual prior to the of his sister. know he has followed up with GI and some of his medications were stopped but unknown if he had any procedures repeated. she notes his stomach looks smaller than typical and does not appear distended. denies fever, chills, pains, N/V/C/D, denies he was having day/night reversal prior to traumatic event. states she knew his stools were black but is also taking iron supplements. but he did not mention any marco blood. OBJECTIVE: Last Vital Signs Temp Pulse Resp BP Pulse Ox 98.2 F 98 H 18 114/66 98 01/13/18 13:45 01/13/18 13:45 01/13/18 13:45 01/13/18 13:45 01/13/18 13:45 General NAD, A&O x2 (self and location), confused, does not answer all questions appropriately CV S1 S2 RRR no murmur/rub/gallop Lungs CTA B/L no wheezing/rales/rhonchi Abdomen soft NT/ND no fluid wave, dull to percussion. diffuse hemangioma Extremities no edema. no asterixis ASSESSMENT AND PLAN: 52yo M with PMH Remote ETOH abuse, HCV s/p tx, cirrhosis due to ETOH/HCV, depression and iron def anemia with admission earlier this year for Upper GI bleed where he was found to have multiple non-bleeding ulcers and esophageal varices and portal HTN presented with progressively worsening confusion 1. Acute toxic metabolic encephalopathy- likely hepatic encephalopathy with elevated ammonia level also could be precipitated by zoloft as it should be avoided in patients with Child Vargas score B or higher. will also need to r/o infection. check UA, abdominal u/s to look for ascites although no clinical signs. if he does have ascites will need to tap for SBP. start lactulose and rifaximin. serial neurological exams. head CT is negative. 2. +FOBT- concern for ulcer or variceal bleeding. no signs of active bleeding at this time. hemodynamically stable. BUN is normal. will repeat CBC to ensure Hgb is staying stable as he is likely hemoconcentrated given his Hgb is higher than previous admissions. would liekly require repeat EGD if Hgb is dropping. GI consulted. 3. Iron def anemia- on supplements. unclear if had iron studies repeated as outpatient. will repeat them. 4. Cirrhosis- no signs of ascites on exam. low suspicion for SBP given no ascites, fever or leukocytosis. would obtain abdominal u/s to evaluate if ascites is present. ceftriaxone given in the ER. will hold at this time 5. HCV s/p tx 6. depression- given his stage of Child Vargas score B zoloft should be avoided. can not be stopped abruptly. will decrease to 50mg and should be tapered off. consider starting alternative agent while tapering off zoloft but would hold starting anything in the acute setting 7. Remote ETOH abuse- states his last drink was 09/2017 8. DVT ppx- SCD. would hold pharmacologic anticoagulation until confirmed pt is not actively bleeding
[2018-01-13 16:59] LABS: COCAINE, UR NEGATIVE ng/ml (CUTOFF=300); METHADONE, UR NEGATIVE ng/ml (CUTOFF=300); OPIATES, URI NEGATIVE ng/ml (CUTOFF=300); PHENCYCLIDINE,URINE NEGATIVE ng/ml (CUTOFF=25); URINE AMPHETAMINES NEGATIVE ng/ml (CUTOFF=500); URINE BARBITURATES NEGATIVE ng/ml (CUTOFF=200); URINE BENZODIAZEPINES NEGATIVE ng/ml (CUTOFF=200)
[2018-01-13 18:40] LABS: HEMATOCRIT 29.5 % (35.4-49); HEMOGLOBIN 9.9 GM/dL (11.7-16.9); MCH 30.8 pg (25.7-33.7); MCHC 33.6 g/dl (32.0-35.9); MEAN CELL VOLUME 91.5 fl (80-96); MEAN PLT VOLUME 7.1 fl (7.5-11.1); PLATELET COUNT 263 K/MM3 (134-434); RBC 3.23 M/mm3 (4.00-5.60); RDW 13.7 % (11.9-15.9)
[2018-01-13 18:51] VITALS: BMI 21.8
[2018-01-13 19:02] LABS: INR 1.28 (0.83-1.09); PROTHROMBIN TIME (PATIENT) 15.1 SEC (9.7-13.0)
[2018-01-13] MEDS: LACTULOSE 20 GM/30 ML UDC (FOR ORAL USE ONLY) PO SCH (22:36)
[2018-01-14] MEDS: LACTULOSE 20 GM/30 ML UDC (FOR ORAL USE ONLY) PO SCH ×3 (06:29→21:32)
[2018-01-14] MEDS: PANTOPRAZOLE SODIUM 80 MG in SODIUM CHLORIDE 100 ML IVPB SCH (06:29)
[2018-01-14 07:53] LABS: BASO % 0.8 % (0-2.0); EOS % 0.8 % (0-4.5); HEMATOCRIT 30.3 % (35.4-49); LYMPH % 7.2 % (8-40); MCH 30.4 pg (25.7-33.7); MCHC 33.1 g/dl (32.0-35.9); MEAN CELL VOLUME 91.8 fl (80-96); MEAN PLT VOLUME 7.2 fl (7.5-11.1); MONO % 9.6 % (3.8-10.2); NEUT % 81.6 % (42.8-82.8); PLATELET COUNT 237 K/MM3 (134-434); RDW 13.8 % (11.9-15.9); WHITE BLOOD COUNT 5.4 K/mm3 (4.0-10.0)
[2018-01-14 08:12] LABS: INR 1.28 (0.83-1.09); MAGNESIUM 1.9 mg/dL (1.8-2.4); PHOSPHOROUS 3.9 mg/dL (2.5-4.9); PROTHROMBIN TIME (PATIENT) 15.2 SEC (9.7-13.0)
[2018-01-14 08:16] LABS: ALBUMIN 2.6 g/dl (3.4-5.0); ALK PHOS 80 U/L (45-117); ANION GAP 13 MMOL/L (8-16); BILIRUBIN,TOTAL 1.9 mg/dL (0.2-1); BLOOD UREA NITROGEN 15 mg/dL (7-18); CALCIUM 8.3 mg/dL (8.5-10.1); CHLORIDE 111 mmol/L (98-107); CO2 17 mmol/L (21-32); CREATININE 0.8 mg/dL (0.55-1.3); GLUCOSE,RANDOM 63 mg/dL (74-106); POTASSIUM 3.7 mmol/L (3.5-5.1); SGOT/AST 52 U/L (15-37); SGPT/ALT 30 U/L (13-61); SODIUM 141 mmol/L (136-145); TOT PROT 6.5 g/dl (6.4-8.2)
--- NOTE | 2018-01-14 09:30 | PN ---
Physical Exam: SUBJECTIVE: Patient seen and examined this morning. He is still confused. Overnight events noted. He says that he has to urinate, but as per nursing he just returned from the restroom. OBJECTIVE: Vital Signs Period Temp Pulse Resp BP Sys/Orantes Pulse Ox Last 24 Hr 97.8 F-98.5 F 86-110 18-20 114-143/58-77 98-99 GENERAL: Alert and Oriented to person and place, Mildly confused, no acute distress HEAD: Normocephalic, atraumatic. EYES: PERRL, no scleral icterus EARS, NOSE, THROAT: oropharynx clear without exudates. Moist mucous membranes. NECK: supple without lymphadenopathy LUNGS: CTA b/l, no crackles or wheezes HEART: Regular rate and rhythm, normal S1 and S2 without murmur ABDOMEN: Soft, obese, nontender to palpation, normoactive bowel sounds MUSCULOSKELETAL: No bony deformities or tenderness. EXTREMITIES: 2+ pulses, warm, well-perfused. No peripheral edema. NEUROLOGICAL: Cranial nerves II-XII grossly intact. Confused speech. Unable to repeat 3 words back immediately. PSYCHIATRIC: Cooperative. Good eye contact. Appropriate mood and affect. SKIN: Warm, dry, no rashes or lesions noted, no jaundice noted Laboratory Results - last 24 hr 01/13/18 01/13/18 01/13/18 08:35 16:20 18:00 WBC 5.0 RBC 3.23 L Hgb 9.9 L Hct 29.5 L MCV 91.5 MCH 30.8 MCHC 33.6 RDW 13.7 Plt Count 263 MPV 7.1 L Absolute Neuts (auto) Neutrophils % Lymphocytes % Monocytes % Eosinophils % Basophils % Nucleated RBC % Retic Count PT with INR INR Sodium Potassium Chloride Carbon Dioxide Anion Gap BUN Creatinine Creat Clearance w eGFR POC Glucometer [id number] Random Glucose Calcium Phosphorus Magnesium Ferritin Total Bilirubin AST ALT Alkaline Phosphatase Ammonia C-Reactive Protein Total Protein Albumin Opiates Screen Negative Methadone Screen Negative Barbiturate Screen Negative Phencyclidine Screen Negative Ur Amphetamines Screen Negative MDMA (Ecstasy) Screen Negative Benzodiazepines Screen Negative Cocaine Screen Negative U Marijuana (THC) Screen Positive A* 01/13/18 01/14/18 01/14/18 18:00 06:00 06:00 WBC 5.4 RBC 3.30 L Hgb 10.0 L Hct 30.3 L MCV 91.8 MCH 30.4 MCHC 33.1 RDW 13.8 Plt Count 237 MPV 7.2 L Absolute Neuts (auto) 4.4 Neutrophils % 81.6 Lymphocytes % 7.2 L D Monocytes % 9.6 Eosinophils % 0.8 Basophils % 0.8 Nucleated RBC % 0 Retic Count PT with INR 15.10 H INR 1.28 H Sodium 141 Potassium 3.7 Chloride 111 H Carbon Dioxide 17 L Anion Gap 13 BUN 15 Creatinine 0.8 Creat Clearance w eGFR > 60 POC Glucometer Random Glucose 63 L Calcium 8.3 L Phosphorus Magnesium Ferritin Total Bilirubin 1.9 H AST 52 H ALT 30 Alkaline Phosphatase 80 Ammonia C-Reactive Protein 3.7 H Total Protein 6.5 Albumin 2.6 L Opiates Screen Methadone Screen Barbiturate Screen Phencyclidine Screen Ur Amphetamines Screen MDMA (Ecstasy) Screen Benzodiazepines Screen Cocaine Screen U Marijuana (THC) Screen 01/14/18 01/14/18 01/14/18 06:00 06:00 06:00 WBC RBC Hgb Hct MCV MCH MCHC RDW Plt Count MPV Absolute Neuts (auto) Neutrophils % Lymphocytes % Monocytes % Eosinophils % Basophils % Nucleated RBC % Retic Count 2.81 H PT with INR 15.20 H INR 1.28 H Sodium Potassium Chloride Carbon Dioxide Anion Gap BUN Creatinine Creat Clearance w eGFR POC Glucometer Random Glucose Calcium Phosphorus Magnesium Ferritin Total Bilirubin AST ALT Alkaline Phosphatase Ammonia 106.30 H C-Reactive Protein Total Protein Albumin Opiates Screen Methadone Screen Barbiturate Screen Phencyclidine Screen Ur Amphetamines Screen MDMA (Ecstasy) Screen Benzodiazepines Screen Cocaine Screen U Marijuana (THC) Screen 01/14/18 06:00 WBC RBC Hgb Hct MCV MCH MCHC RDW Plt Count MPV Absolute Neuts (auto) Neutrophils % Lymphocytes % Monocytes % Eosinophils % Basophils % Nucleated RBC % Retic Count PT with INR INR Sodium Potassium Chloride Carbon Dioxide Anion Gap BUN Creatinine Creat Clearance w eGFR POC Glucometer Random Glucose Calcium Phosphorus 3.9 Magnesium 1.9 Ferritin 43.7 Total Bilirubin AST ALT Alkaline Phosphatase Ammonia C-Reactive Protein Total Protein Albumin Opiates Screen Methadone Screen Barbiturate Screen Phencyclidine Screen Ur Amphetamines Screen MDMA (Ecstasy) Screen Benzodiazepines Screen Cocaine Screen U Marijuana (THC) Screen Active Medications Generic Name Dose Route Start Last Admin Trade Name Freq PRN Reason Stop Dose Admin Pantoprazole Sodium 80 mg/ 100 mls @ 10 mls/hr 01/13/18 09:15 01/14/18 06:29 Sodium Chloride IVPB 10 mls/hr Q10H DEMETRICE Administration 8 MG/HR Lactulose 20 gm 01/13/18 22:00 01/14/18 06:29 Cephulac (Oral Use) PO 20 gm TID DEMETRICE Administration Rifaximin 550 mg 01/13/18 10:00 01/13/18 22:36 Xifaxan - PO 550 mg BID DEMETRICE Administration Sertraline HCl 50 mg 01/14/18 10:00 Zoloft - PO DAILY DEEMTRICE ASSESSMENT/PLAN: 52 yo male with PMH Depression, Portal HTN, HepC (s/p treatment) Liver Cirrhosis , hemorrhoids, Recent upper GI bleed requiring transfusion (2 units on recent admission) admitted with mental status changes and confusion. Acute Toxic Metabolic Encephalopathy -Pt with known history of cirrhosis likely secondary to HepC and chronic EtOH Abuse -GI Consult appreciated -Ammonia noted 130, down to 106 -Lactulose 30 mg PO TID, titrate for at least 3 bowel movements / day -Rifaximin 550 mg PO BID -Urine Tox only positive for Marijuana Anemia -Known hx iron deficiency anemia on recent admission secondary to GI losses -Recent GI bleeding requiring 2 units PRBCs -EGD and Colonoscopy from previous admission noted, colitis with numerous pseudopolyps ascending to proximal descending colon, Large varices distal esophagus/gastric antrum -Unsure why pt not on B-laura, Nadolol 20 mg PO Daily, can be titrated to 40 mg PO Daily as tolerated by b.p. -H/H stable , improved from previous admission -Stool occult positive, low suspicion for acute GI bleed, BUN/Cr okay -Repeat CBC stable -Reticulocytes 2.81, Iron studies pending Depression -Zoloft recently increased to 150 mg Daily, but pt did not tolerate, decreased back to 100 mg PO Daily on 01/07/2018 -Currently stable on home doses as per pts family, though Child Vargas Score B, Zoloft not recommended -Decreased to 50 mg PO Daily as unable to stop without taper DVT Prophylaxis -Lovenox 40 mg SQ Daily FEN -Fluids: none -Electrolytes: No electrolyte abnormalities, BMP in AM -Nutrition: Regular Diet Disposition Telemetry Visit type - Emergency Visit Emergency Visit: Yes ED Registration Date: 10/07/18 Care time: The patient presented to the Emergency Department on the above date and was hospitalized for further evaluation of their emergent condition. - New Patient This patient is new to me today: No - Critical Care Critical Care patient: No
[2018-01-14] MEDS ORDERED: ENOXAPARIN NA (PORCINE) 40 MG/0.4 ML DISP.SYRIN SQ SCH (10:00)
[2018-01-14] MEDS ORDERED: SERTRALINE HCL 50 MG TABLET (FP) PO SCH (10:00)
[2018-01-14] MEDS ORDERED: PT OWN MED DRAWER 7, Y5N ONE ×2 (10:29→21:27)
[2018-01-14] MEDS: RIFAXIMIN 550 MG TABLET (UD) PO SCH ×2 (10:30→21:32)
[2018-01-14] MEDS: SERTRALINE HCL 50 MG TABLET (FP) PO SCH (10:30)
--- NOTE | 2018-01-14 11:02 | EKG ---
Test Reason : Blood Pressure : / mmHG Vent. Rate : 093 BPM Atrial Rate : 093 BPM P-R Int : 150 ms QRS Dur : 100 ms QT Int : 428 ms P-R-T Axes : 050 058 061 degrees QTc Int : 532 ms NORMAL SINUS RHYTHM NORMAL ECG WHEN COMPARED WITH ECG OF 20-SEP-2017 08:26, NO SIGNIFICANT CHANGE WAS FOUND Confirmed by YON FORD MD ([id number]) on 01/14/2018 11:01:56 AM Referred By: Confirmed By:YON FORD MD
--- NOTE | 2018-01-14 15:02 | PN ---
GI Progress Note Subjective: No acute events No abdominal pain Family present at bedside 2 BMs reported today - Objective Vital Signs: Vital Signs Temperature 98.5 F 01/14/18 10:00 Pulse Rate 108 H 01/14/18 10:00 Respiratory Rate 18 01/14/18 10:00 Blood Pressure 120/63 01/14/18 10:00 O2 Sat by Pulse Oximetry (%) 97 01/14/18 09:00 Constitutional: Calm Eyes: No: Sclera Icterus Cardiovascular: Yes: Tachycardia Respiratory: Yes: Diminished (at bases b/l, poor insp. effort) Gastrointestinal Inspection: No: Hernia ...Auscultate: Yes: Normoactive Bowel Sounds ...Palpate: No: Hepatomegaly, Splenomegaly, Tenderness ...Percussion: No: Tympanitic Edema: No (No LE edema) Neurological: Yes: Alert, Oriented (x 2 (person, place)), Asterixis Labs: CBC, BMP 01/14/18 06:00 01/14/18 06:00 INR, PTT INR 1.28 (0.83-1.09) H 01/14/18 06:00 01/14/18 06:00 Ammonia 106.30 H Problem List - Problems (1) Hepatic encephalopathy Assessment/Plan: Unclear precipitating factor. Normal BUN and stable / improved H/H from previous admission does not suggest significant upper GI hemorrhage. ? if precipitated by recent description of constipation as an outpatient. Advise: Increased Lactulose to 30g PO TID Continue rifaximin 550mg PO BID Tapering down zoloft Avoid benzodiazapines Code(s): K72.90 - HEPATIC FAILURE, UNSPECIFIED WITHOUT COMA (2) Esophageal varices Assessment/Plan: S/P EVL 09/24 Resume non-selective beta laura therapy ie nadolol 20mg daily and titrate as tolerated Code(s): I85.00 - ESOPHAGEAL VARICES WITHOUT BLEEDING Qualifiers: Esophageal varices type: unspecified type (3) Colitis Assessment/Plan: Asymptomatic currently, With pseudopolyps / chronic active colitis noted on recent colonoscopy. ? IBD. 5 ASA therapy stopped by Dr. Chiang during ? outpatient office follow-up. Resume Asacol HD 800mg TID Code(s): K52.9 - NONINFECTIVE GASTROENTERITIS AND COLITIS, UNSPECIFIED
--- NOTE | 2018-01-14 17:12 | PN ---
Teaching Attending Note Name of Resident: Amor Stern ATTENDING PHYSICIAN STATEMENT I saw and evaluated the patient. I reviewed the resident's note and discussed the case with the resident. I agree with the resident's findings and plan as documented. SUBJECTIVE:asymptomatic. states he feels a little "off" but much better. denies Cp, SOB, fever, chills, N/V/C/d. 1BM today OBJECTIVE: Last Vital Signs Temp Pulse Resp BP Pulse Ox 98.1 F 92 H 16 118/66 97 01/14/18 14:05 01/14/18 14:05 01/14/18 14:05 01/14/18 14:05 01/14/18 09:00 General NAD, A&O x3 CV S1 S2 RRR no murmur/rub/gallop Lungs CTA B/L no wheezing/rales/rhonchi Abdomen soft NT/ND no fluid wave, dull to percussion. diffuse hemangioma Extremities no edema. no asterixis ASSESSMENT AND PLAN: 52yo M with PMH Remote ETOH abuse, HCV s/p tx, cirrhosis due to ETOH/HCV, depression and iron def anemia with admission earlier this year for Upper GI bleed where he was found to have multiple non-bleeding ulcers and esophageal varices and portal HTN presented with progressively worsening confusion 1. Acute toxic metabolic encephalopathy- likely hepatic encephalopathy with elevated ammonia level also could be precipitated by zoloft as it should be avoided in patients with Child Vargas score B or higher. clinically improved but remains confused. did not remember any words when asked to recall 3 items. no signs of infection. no ascites. lactulose increased to encourage more BM. cont rifaxmin. 2. +FOBT- concern for ulcer or variceal bleeding. no signs of active bleeding at this time. hgb has been stable. would likely benefit from EGD in the future. does not require at this time. will re-start nadolol for hx of esophageal varices. 4. Cirrhosis- decompensated. being treated for hepatic encephalopathy. will need close GI monitoring. sober for several months. 5. HCV s/p tx 6. depression- given his stage of Child Vargas score B zoloft should be avoided. titrated down to 50mg. should ideally start alternative agent while tapering off but would not do so in the acute setting till mental status is back to baseline. 7. Remote ETOH abuse- states his last drink was 09/2017 8. DVT ppx- Start hep sq
[2018-01-14] MEDS: NADOLOL 20 MG TABLET (FP) PO SCH (18:30)
[2018-01-14] MEDS: HEPARIN NA (PORCINE) 5,000 UNITS/ML 1ML VIAL SQ SCH (21:32)
[2018-01-15] MEDS ORDERED: PT OWN MED DRAWER 7, Y5N ONE ×4 (05:24→21:07)
[2018-01-15] MEDS: MESALAMINE 800 MG TABLET.DR PO SCH ×3 (05:26→21:20)
[2018-01-15] MEDS: LACTULOSE 20 GM/30 ML UDC (FOR ORAL USE ONLY) PO SCH ×3 (05:26→21:15)
[2018-01-15 06:58] LABS: HEMATOCRIT 28.8 % (35.4-49); HEMOGLOBIN 9.4 GM/dL (11.7-16.9); MCH 29.9 pg (25.7-33.7); MCHC 32.8 g/dl (32.0-35.9); MEAN PLT VOLUME 7.1 fl (7.5-11.1); PLATELET COUNT 238 K/MM3 (134-434); RBC 3.16 M/mm3 (4.00-5.60); RDW 13.7 % (11.9-15.9); WHITE BLOOD COUNT 4.6 K/mm3 (4.0-10.0)
[2018-01-15 07:28] LABS: ALBUMIN 2.3 g/dl (3.4-5.0); ALK PHOS 70 U/L (45-117); ANION GAP 6 MMOL/L (8-16); BILIRUBIN,TOTAL 1.3 mg/dL (0.2-1); BLOOD UREA NITROGEN 15 mg/dL (7-18); CALCIUM 7.9 mg/dL (8.5-10.1); CHLORIDE 109 mmol/L (98-107); CO2 25 mmol/L (21-32); CREATININE 0.6 mg/dL (0.55-1.3); GLUCOSE,RANDOM 105 mg/dL (74-106); MAGNESIUM 2.1 mg/dL (1.8-2.4); PHOSPHOROUS 3.5 mg/dL (2.5-4.9); POTASSIUM 3.2 mmol/L (3.5-5.1); SGOT/AST 56 U/L (15-37); SGPT/ALT 34 U/L (13-61); SODIUM 140 mmol/L (136-145)
[2018-01-15] MEDS: RIFAXIMIN 550 MG TABLET (UD) PO SCH ×2 (10:22→21:15)
[2018-01-15] MEDS: NADOLOL 20 MG TABLET (FP) PO SCH (10:22)
[2018-01-15] MEDS: SERTRALINE HCL 50 MG TABLET (FP) PO SCH (10:22)
[2018-01-15] MEDS: HEPARIN NA (PORCINE) 5,000 UNITS/ML 1ML VIAL SQ SCH ×2 (10:22→21:15)
--- NOTE | 2018-01-15 11:32 | PN ---
Physical Exam: SUBJECTIVE: Patient seen and examined this AM. He currently has no complaints and says he is feeling better today. Pt able to speak clearly in full coherent sentences today. OBJECTIVE: Vital Signs Period Temp Pulse Resp BP Sys/Orantes Pulse Ox Last 24 Hr 97.4 F-98.2 F 66-93 16-18 100-122/56-66 95-96 GENERAL: Alert and Oriented to person and place, Mildly confused, no acute distress HEAD: Normocephalic, atraumatic. EYES: PERRL, no scleral icterus EARS, NOSE, THROAT: oropharynx clear without exudates. Moist mucous membranes. NECK: supple without lymphadenopathy LUNGS: CTA b/l, no crackles or wheezes HEART: Regular rate and rhythm, normal S1 and S2 without murmur ABDOMEN: Soft, obese, nontender to palpation, normoactive bowel sounds MUSCULOSKELETAL: No bony deformities or tenderness. EXTREMITIES: 2+ pulses, warm, well-perfused. No peripheral edema. NEUROLOGICAL: Cranial nerves II-XII grossly intact. Speech improved. Pt conversating in full coherent sentences today PSYCHIATRIC: Cooperative. Good eye contact. Appropriate mood and affect. SKIN: Warm, dry, no rashes or lesions noted, no jaundice noted Laboratory Results - last 24 hr 01/14/18 01/15/18 01/15/18 06:00 06:00 06:00 WBC 4.6 RBC 3.16 L Hgb 9.4 L Hct 28.8 L MCV 91.0 MCH 29.9 MCHC 32.8 RDW 13.7 Plt Count 238 MPV 7.1 L Sodium Potassium Chloride Carbon Dioxide Anion Gap BUN Creatinine Creat Clearance w eGFR Random Glucose Calcium Phosphorus Magnesium Iron 11 L TIBC 150 L Iron Saturation 7 L Total Bilirubin AST ALT Alkaline Phosphatase Ammonia 77.00 H Total Protein Albumin 01/15/18 06:00 WBC RBC Hgb Hct MCV MCH MCHC RDW Plt Count MPV Sodium 140 Potassium 3.2 L Chloride 109 H Carbon Dioxide 25 Anion Gap 6 L BUN 15 Creatinine 0.6 Creat Clearance w eGFR > 60 Random Glucose 105 Calcium 7.9 L Phosphorus 3.5 Magnesium 2.1 Iron TIBC Iron Saturation Total Bilirubin 1.3 H AST 56 H ALT 34 Alkaline Phosphatase 70 Ammonia Total Protein 6.0 L Albumin 2.3 L Active Medications Generic Name Dose Route Start Last Admin Trade Name Freq PRN Reason Stop Dose Admin Heparin Sodium (Porcine) 5,000 unit 01/14/18 22:00 01/15/18 10:22 Heparin - SQ 5,000 unit BID DEMETRICE Administration Lactulose 30 gm 01/14/18 22:00 01/15/18 05:26 Cephulac (Oral Use) PO 30 gm TID DEMETRICE Administration Mesalamine 800 mg 01/15/18 06:00 01/15/18 05:26 Asacol Hd - PO 800 mg TID DEMETRICE Administration Nadolol 20 mg 01/14/18 17:00 01/15/18 10:22 Corgard - PO 20 mg DAILY DEMETRICE Administration Rifaximin 550 mg 01/13/18 10:00 01/15/18 10:22 Xifaxan - PO 550 mg BID DEMETRICE Administration Sertraline HCl 50 mg 01/14/18 10:00 01/15/18 10:22 Zoloft - PO 50 mg DAILY DEMETRICE Administration ASSESSMENT/PLAN: 52 yo male with PMH Depression, Portal HTN, HepC (s/p treatment) Liver Cirrhosis , hemorrhoids, Recent upper GI bleed requiring transfusion (2 units on recent admission) admitted with mental status changes and confusion. Acute Toxic Metabolic Encephalopathy -Pt with known history of cirrhosis likely secondary to HepC and chronic EtOH Abuse -GI Consult appreciated -Ammonia noted 130, down to 77 -Lactulose 30 mg PO TID, titrate for at least 3 bowel movements / day -Rifaximin 550 mg PO BID -Urine Tox only positive for Marijuana -PT Eval for DC planning Anemia -Known hx iron deficiency anemia on recent admission secondary to GI losses -Recent GI bleeding requiring 2 units PRBCs -EGD and Colonoscopy from previous admission noted, colitis with numerous pseudopolyps ascending to proximal descending colon, Large varices distal esophagus/gastric antrum -Unsure why pt not on B-laura, Nadolol 20 mg PO Daily, can be titrated to 40 mg PO Daily as tolerated by b.p. -H/H stable, improved from previous admission -Stool occult positive, low suspicion for acute GI bleed, BUN/Cr okay -Repeat CBCs stable -Reticulocytes 2.81, Iron 11, TIBC 150, Iron Sat 7 Depression -Zoloft recently increased to 150 mg Daily, but pt did not tolerate, decreased back to 100 mg PO Daily on 01/07/2018 -Currently stable on home doses as per pts family, though Child Vargas Score B, Zoloft not recommended -Decreased to 50 mg PO Daily as unable to stop without taper DVT Prophylaxis -Lovenox 40 mg SQ Daily FEN -Fluids: none -Electrolytes: Low K, repleted, BMP in AM -Nutrition: Regular Diet Disposition Telemetry, d/c planning, possibly tomorrow with continued improvement Visit type - Emergency Visit Emergency Visit: Yes ED Registration Date: 01/13/18 Care time: The patient presented to the Emergency Department on the above date and was hospitalized for further evaluation of their emergent condition. - New Patient This patient is new to me today: No - Critical Care Critical Care patient: No
--- NOTE | 2018-01-15 13:28 | PN ---
Teaching Attending Note Name of Resident: Amor Stern ATTENDING PHYSICIAN STATEMENT I saw and evaluated the patient. I reviewed the resident's note and discussed the case with the resident. I agree with the resident's findings and plan as documented with exceptions below. SUBJECTIVE: Patient seen and examined. Improved today as discussed with mother at bedside and medical team. Denies any pain or new complaints. OBJECTIVE: Vital Signs Period Temp Pulse Resp BP Sys/Orantes Pulse Ox Last 24 Hr 97.4 F-98.2 F 66-93 16-18 100-122/56-66 95-96 Intake & Output 01/12/18 01/13/18 01/14/18 01/15/18 23:59 23:59 23:59 23:59 Intake Total 100 1070 450 Balance 100 1070 450 Weight 152 lb General: sitting in bed in no acute distress Neuro: AA, oriented to person, month/year but felt was January 11, knows is in winger, needed prompting for hospital name. Mild asterexis on exam Abdomen:soft, NT throughout, positive bowel sounds, tympanic Extremities: no edema Active Medications Heparin Sodium (Porcine) (Heparin -) 5,000 unit SQ BID [facility] Last Admin: 01/15/18 10:22 Dose: 5,000 unit Lactulose (Cephulac (Oral Use)) 30 gm PO TID [facility] Last Admin: 01/15/18 05:26 Dose: 30 gm Mesalamine (Asacol Hd -) 800 mg PO TID DEMETRICE Last Admin: 01/15/18 05:26 Dose: 800 mg Nadolol (Corgard -) 20 mg PO DAILY [facility] Last Admin: 01/15/18 10:22 Dose: 20 mg Rifaximin (Xifaxan -) 550 mg PO BID [facility] Last Admin: 01/15/18 10:22 Dose: 550 mg Sertraline HCl (Zoloft -) 50 mg PO DAILY [facility] Last Admin: 01/15/18 10:22 Dose: 50 mg Laboratory Results - last 24 hr 01/14/18 01/15/18 01/15/18 06:00 06:00 06:00 WBC 4.6 RBC 3.16 L Hgb 9.4 L Hct 28.8 L MCV 91.0 MCH 29.9 MCHC 32.8 RDW 13.7 Plt Count 238 MPV 7.1 L Sodium Potassium Chloride Carbon Dioxide Anion Gap BUN Creatinine Creat Clearance w eGFR Random Glucose Calcium Phosphorus Magnesium Iron 11 L TIBC 150 L Iron Saturation 7 L Total Bilirubin AST ALT Alkaline Phosphatase Ammonia 77.00 H Total Protein Albumin 01/15/18 06:00 WBC RBC Hgb Hct MCV MCH MCHC RDW Plt Count MPV Sodium 140 Potassium 3.2 L Chloride 109 H Carbon Dioxide 25 Anion Gap 6 L BUN 15 Creatinine 0.6 Creat Clearance w eGFR > 60 Random Glucose 105 Calcium 7.9 L Phosphorus 3.5 Magnesium 2.1 Iron TIBC Iron Saturation Total Bilirubin 1.3 H AST 56 H ALT 34 Alkaline Phosphatase 70 Ammonia Total Protein 6.0 L Albumin 2.3 L Abdominal US - trace ascitis CT head - no acute process ASSESSMENT AND PLAN: 52yo M with PMH Remote ETOH abuse, HCV s/p tx, cirrhosis due to ETOH/HCV, depression and iron def anemia with admission earlier this year for Upper GI bleed where he was found to have multiple non-bleeding ulcers and esophageal varices s/p banding and portal gastropathy and Colonscopy with chronic active colitis presented with progressively worsening confusion -Acute toxic metabolic encephalopathy, likely hepatic encephalopathy +/- zoloft -Occult GI bleed -Decompensated cirrhosis -Portal gastropathy -Non bleeding esophageal varices s/p banding 09/2017 -HCV s/p treatment -Depression, recent loss of sister -Remote ETOH abuse Plan: Mental status continues to improved taper lactulose bID. continue rifaximin. PPI. Zoloft tapered. Further outpatient taper with PCP. h.h stable. Asacol. GI input appreciated DVTPPx heparin PT eval dispo planning home in 24 hours pending clinical improvement and dispo arrangements. Plan discussed with patient and mother at bedside in detail, all questions answered.
[2018-01-15] MEDS ORDERED: POTASSIUM CHLORIDE TABS 20 MEQ TABLET.ER (FP) PO ONE (14:30)
--- NOTE | 2018-01-15 14:39 | PN ---
GI Progress Note Subjective: Patient's mother and father at bedside. They feel that patient is beginning to act more like himself No acute events Patient states feeling well 2 loose BM's today per nurse - Objective Vital Signs: Vital Signs Temperature 97.9 F 01/15/18 13:58 Pulse Rate 66 01/15/18 13:58 Respiratory Rate 16 01/15/18 13:58 Blood Pressure 91/54 L 01/15/18 13:58 O2 Sat by Pulse Oximetry (%) 96 01/15/18 09:00 Constitutional: Calm Eyes: No: Sclera Icterus Cardiovascular: Yes: Regular Rate and Rhythm Respiratory: Yes: CTA Bilaterally Gastrointestinal Inspection: No: Distention ...Auscultate: Yes: Normoactive Bowel Sounds ...Palpate: Yes: Soft. No: Hepatomegaly, Splenomegaly ...Percussion: No: Tympanitic Edema: No (No LE edema) Neurological: Yes: Alert, Oriented (x person, place, partially to time). No: Asterixis (resolved from yesterday) Labs: CBC, BMP 01/15/18 06:00 01/15/18 06:00 INR, PTT INR 1.28 (0.83-1.09) H 01/14/18 06:00 Laboratory Tests 01/14/18 01/15/18 06:00 06:00 Ammonia 106.30 H 77.00 H Problem List - Problems (1) Hepatic encephalopathy Assessment/Plan: Clinically improved, correlates with improving ammonia level in this particular case Continue Lactulose 20g TID Corgard as pulse and BP permit Alcohol abstinence Code(s): K72.90 - HEPATIC FAILURE, UNSPECIFIED WITHOUT COMA (2) Esophageal varices Code(s): I85.00 - ESOPHAGEAL VARICES WITHOUT BLEEDING Qualifiers: Esophageal varices type: unspecified type (3) Colitis Assessment/Plan: Asacol HD 800mg PO TID Code(s): K52.9 - NONINFECTIVE GASTROENTERITIS AND COLITIS, UNSPECIFIED
[2018-01-16] MEDS ORDERED: PT OWN MED DRAWER 7, Y5N ONE ×5 (04:57→17:36)
[2018-01-16] MEDS: MESALAMINE 800 MG TABLET.DR PO SCH ×2 (04:59→15:14)
--- NOTE | 2018-01-16 07:22 | PN ---
Teaching Attending Note Name of Resident: Amor Stern ATTENDING PHYSICIAN STATEMENT I saw and evaluated the patient. I reviewed the resident's note and discussed the case with the resident. I agree with the resident's findings and plan as documented with exceptions below. SUBJECTIVE: Patient seen and examined. feeling good, no pain or new concerns. Eager to go home. OBJECTIVE: Vital Signs Period Temp Pulse Resp BP Sys/Orantes Pulse Ox Last 24 Hr 97.7 F-98.1 F 65-72 16-18 91-100/54-61 96-96 Intake & Output 01/13/18 01/14/18 01/15/18 01/16/18 23:59 23:59 23:59 23:59 Intake Total 100 1070 850 Balance 100 1070 850 Weight 152 lb 152 lb General; sitting in bed having breakfast, no acute distress, OX3, 2/3 recall Abdomen; soft, ND, NT throughout Extremities: no edema or asterexis Active Medications Heparin Sodium (Porcine) (Heparin -) 5,000 unit SQ BID [facility] Last Admin: 01/15/18 21:15 Dose: 5,000 unit Lactulose (Cephulac (Oral Use)) 30 gm PO BID [facility] Last Admin: 01/15/18 21:15 Dose: 30 gm Mesalamine (Asacol Hd -) 800 mg PO TID [facility] Last Admin: 01/16/18 04:59 Dose: 800 mg Nadolol (Corgard -) 20 mg PO DAILY [facility] Last Admin: 01/15/18 10:22 Dose: 20 mg Rifaximin (Xifaxan -) 550 mg PO BID [facility] Last Admin: 01/15/18 21:15 Dose: 550 mg Sertraline HCl (Zoloft -) 50 mg PO DAILY [facility] Last Admin: 01/15/18 10:22 Dose: 50 mg Laboratory Results - last 24 hr 01/14/18 01/16/18 06:00 06:00 Sodium 140 Potassium 3.5 Chloride 109 H Carbon Dioxide 23 Anion Gap 9 BUN 11 Creatinine 0.5 L Creat Clearance w eGFR > 60 Random Glucose 92 Calcium 7.8 L Phosphorus 3.1 Magnesium 2.0 Total Bilirubin 1.4 H AST 40 H ALT 35 Alkaline Phosphatase 78 Total Protein 6.1 L Albumin 2.3 L Tumor Marker AFP 1.7 ASSESSMENT AND PLAN: 52yo M with PMH Remote ETOH abuse, HCV s/p tx, cirrhosis due to ETOH/HCV, depression and iron def anemia with admission earlier this year for Upper GI bleed where he was found to have multiple non-bleeding ulcers and esophageal varices s/p banding and portal gastropathy and Colonscopy with chronic active colitis presented with progressively worsening confusion -Acute toxic metabolic encephalopathy, likely hepatic encephalopathy +/- medication related from zoloft -Occult GI bleed -Decompensated cirrhosis -Portal gastropathy -Non bleeding esophageal varices s/p banding 09/2017 -HCV s/p treatment -Depression, recent loss of sister -Remote ETOH abuse Plan: Mental status markedly improved. GI input noted. Continue lactulose/nadolol/rifaximin/asacol. Zoloft at 50 mg daily with eventual taper off. PT eval noted. Walker and home PT. d/c home today with outpatient PCP and GI follow up. Plan discussed with patient and all questions answered.
[2018-01-16 08:52] LABS: ALBUMIN 2.3 g/dl (3.4-5.0); ALK PHOS 78 U/L (45-117); ANION GAP 9 MMOL/L (8-16); BILIRUBIN,TOTAL 1.4 mg/dL (0.2-1); BLOOD UREA NITROGEN 11 mg/dL (7-18); CALCIUM 7.8 mg/dL (8.5-10.1); CHLORIDE 109 mmol/L (98-107); CO2 23 mmol/L (21-32); CREATININE 0.5 mg/dL (0.55-1.3); GLUCOSE,RANDOM 92 mg/dL (74-106); PHOSPHOROUS 3.1 mg/dL (2.5-4.9); POTASSIUM 3.5 mmol/L (3.5-5.1); SGOT/AST 40 U/L (15-37); SGPT/ALT 35 U/L (13-61); SODIUM 140 mmol/L (136-145); TOT PROT 6.1 g/dl (6.4-8.2)
[2018-01-16] MEDS: LACTULOSE 20 GM/30 ML UDC (FOR ORAL USE ONLY) PO SCH (10:24)
[2018-01-16] MEDS: SERTRALINE HCL 50 MG TABLET (FP) PO SCH (10:25)
[2018-01-16] MEDS: HEPARIN NA (PORCINE) 5,000 UNITS/ML 1ML VIAL SQ SCH (10:25)
[2018-01-16] MEDS: NADOLOL 20 MG TABLET (FP) PO SCH (10:33)
[2018-01-16] MEDS: RIFAXIMIN 550 MG TABLET (UD) PO SCH (10:33)
[2018-01-16] MEDS ORDERED: LACTULOSE 20 GM/30 ML UDC (FOR ORAL USE ONLY) PO SCH (14:00)
[2018-01-16 14:26] VITALS: BP 103/70; PULSE 76; TEMP 98
--- NOTE | 2018-01-16 14:48 | DS ---
Physical Exam: SUBJECTIVE: Patient seen and examined in the AM. He states that he feels better and feels like his mental status is continually improving. OBJECTIVE: Vital Signs Period Temp Pulse Resp BP Sys/Orantes Pulse Ox Last 24 Hr 97.7 F-98.1 F 65-76 16-18 96-103/57-70 96 PHYSICAL EXAM GENERAL: Alert and Oriented to person and place, Mildly confused, no acute distress HEAD: Normocephalic, atraumatic. EYES: PERRL, no scleral icterus EARS, NOSE, THROAT: oropharynx clear without exudates. Moist mucous membranes. NECK: supple without lymphadenopathy LUNGS: CTA b/l, no crackles or wheezes HEART: Regular rate and rhythm, normal S1 and S2 without murmur ABDOMEN: Soft, obese, nontender to palpation, normoactive bowel sounds MUSCULOSKELETAL: No bony deformities or tenderness. EXTREMITIES: 2+ pulses, warm, well-perfused. No peripheral edema. NEUROLOGICAL: Remembers 2/3 words after 2 minutes, No asterixis, able to follow commands PSYCHIATRIC: Cooperative. Good eye contact. Appropriate mood and affect. SKIN: Warm, dry, no rashes or lesions noted, no jaundice noted LABS Laboratory Results - last 24 hr 01/14/18 01/16/18 06:00 06:00 Sodium 140 Potassium 3.5 Chloride 109 H Carbon Dioxide 23 Anion Gap 9 BUN 11 Creatinine 0.5 L Creat Clearance w eGFR > 60 Random Glucose 92 Calcium 7.8 L Phosphorus 3.1 Magnesium 2.0 Total Bilirubin 1.4 H AST 40 H ALT 35 Alkaline Phosphatase 78 Total Protein 6.1 L Albumin 2.3 L Tumor Marker AFP 1.7 IMAGING: Head CT: No intracranial pathology or bleed noted CXR: No acute pathology Liver US: Trace ascites, No evidence of liver mass HOSPITAL COURSE: Date of Admission:01/13/18 Date of Discharge: 01/16/18 HPI 52 yo male with PMH Depression, Portal HTN, HepC (s/p treatment) Liver Cirrhosis , hemorrhoids, Recent upper GI bleed requiring transfusion (2 units on recent admission) presented to the ED brought in by his fiance after he was found this morning confused, naked, and covered in his feces. His family notes that he has been altered and somewhat confused this week, but became much worse yesterday afternoon and evening. The fiance says she put him to bed last night and says that she checked on him throughout the night and he seemed to be sleeping fine, but when she went to check on him this morning she found him naked and covered in feces. He has never had any events like this previously as per his fiance. He currently has no complaints, and the fiance states he is slightly improved from earlier. He is alert and oriented but is not able to appropriately answer all questions. Pt has remote history of EtOH abuse, was sober for years, but relapsed in September. He denies any alcohol recently and fiance is adamant he has not had a drink since September of 2017. Hospital Course Pt was started on Lactulose, Nadolol, and Rifaximin. His ammonia was elevated on admission, and trended down during his admission. His mental status slowly improved throughout the hospital course. Pt was counseled about complete alcohol cessation. The patient was taking Zoloft 100 mg at home. He had a recent history of increased dose with worsening mental status so his dose was adjusted back down to 100 mg. The pt is Child-Vargas Category B and Zoloft is not recommended with liver disease, so his dose was decreased to 50 mg Daily. He was instructed to follow up with his primary physician in order to further taper off the Zoloft. Pt was discharged on Nadolol 20 mg PO Daily, Rifaximin 550 mg PO BID, and Lactulose 20 mg TID. Pt was instructed to hold lactulose dosing if more than 3-4 bowel movements per day. Instructed patient on the importance of taking these medications in order to prevent worsening liver failure, complications from varices, or worsening hepatic encephalopathy. Minutes to complete discharge: 40 Discharge Summary Reason For Visit: GASTROINTESTINAL HEM/ALT MENTAL STATUS Current Active Problems Esophageal varices (Chronic) Hepatic encephalopathy (Chronic) History of hepatitis C (Chronic) Portal hypertensive gastropathy (Chronic) Condition: Stable - Instructions Diet, Activity, Other Instructions: You were admitted to the Hospital with confusion and short term memory loss that was likely secondary to elevated ammonia levels in your blood. This was likely caused by your chronic liver disease and made worse by your zoloft, which is not recommended with your level of liver disease. As that medication cannot be stopped abruptly, we decreased your dose by half. You should follow up with your primary care physician to continue tapering off your Zoloft. They can evaluate if you need another medication in its place. Your zoloft dose has been decreased to 50 mg daily. You are provided with a new prescription. Please discard your old zoloft bottle and start taking this new lower dose. Discuss with your doctor to eventually taper you off the medication. You have been taken off any sleeping pills including ambien during your stay. Avoid any such medication given chronic liver disease without discussion with your doctor. Take lactulose 3 times daily as directed. Please ensure you have 3-4 loose bowel movements daily. You are also started on new medication nadolol 20 mg daily. You insurance did not cover nadolol, so you were sent atenolol 25 mg daily to your pharmacy. If you notice any dizziness, weakness, please notify your doctor. You are also resumed on asacol 800 mg 3 times daily, take as directed. You are recommended rolling walker with ambulation No driving or operating heavy machinery till cleared by your doctor. You should follow up with your primary care physician within one week of discharge from the hospital. You are also advised to follow up with engineer [employer] in 1-2 weeks. (Dr. Lim's information provided) or discuss with your doctor for outpatient referral. Follow up: Blood work (CBC) in 1 week with your doctor. If you have worsening confusion, high fevers, severe abdominal pain, you should call your doctor or return to the Emergency Department Referrals: Aires Lim DO [Staff Physician] - Romelia Ruelas MD [Primary Care Provider] - Disposition: VNS/HOME HEALTH CARE - Home Medications Comprehensive Discharge Medication List: Ambulatory Orders Albuterol Sulfate Inhaler - [Ventolin HFA Inhaler -] 2 inh PO Q6H 01/14/18 Mesalamine 800 mg PO TID 01/14/18 Omeprazole 40 mg PO DAILY 01/14/18 Lactulose (Oral Use) [Cephulac -] 20 gm PO TID #90 udc 01/16/18 Mesalamine [Asacol HD -] 800 mg PO TID #90 tablet. 01/16/18 Nadolol [Corgard -] 20 mg PO DAILY #30 tablet 01/16/18 Rifaximin [Xifaxan -] 550 mg PO BID #60 tablet 01/16/18 Sertraline HCl [Zoloft -] 50 mg PO DAILY #14 tablet 01/16/18 This patient is new to me today: No Emergency Visit: Yes ED Registration Date: 01/13/18 Care time: The patient presented to the Emergency Department on the above date and was hospitalized for further evaluation of their emergent condition. Critical Care patient: No - Discharge Referral Referred to [facility] No
--- NOTE | 2018-01-16 17:38 | PN ---
GI Progress Note Subjective: No acute events No overt bleeding Mental status improved Found sitting up eating dinner - Objective Vital Signs: Vital Signs Temperature 98.0 F 01/16/18 14:25 Pulse Rate 76 01/16/18 14:25 Respiratory Rate 16 01/16/18 14:25 Blood Pressure 103/70 01/16/18 14:25 O2 Sat by Pulse Oximetry (%) 98 01/16/18 09:00 Constitutional: Calm Eyes: No: Sclera Icterus Cardiovascular: Yes: Regular Rate and Rhythm Respiratory: Yes: CTA Bilaterally Gastrointestinal Inspection: No: Distention ...Auscultate: Yes: Normoactive Bowel Sounds ...Palpate: No: Tenderness Edema: No (No LE edema) Neurological: Yes: Alert, Oriented (x person,place, time). No: Asterixis Labs: CBC, BMP 01/15/18 06:00 01/16/18 06:00 INR, PTT INR 1.28 (0.83-1.09) H 01/14/18 06:00 Problem List - Problems (1) Hepatic encephalopathy Assessment/Plan: Much improved: Advise: Continuing Rifaximin 550mg twice daily Continuing Lactulose. Can keep at 20gm twice daily and tiotrate to 3-4 loose BM 's per day. Explained this to him and his family Complete alcohol cessation Code(s): K72.90 - HEPATIC FAILURE, UNSPECIFIED WITHOUT COMA (2) Esophageal varices Code(s): I85.00 - ESOPHAGEAL VARICES WITHOUT BLEEDING Qualifiers: Esophageal varices type: unspecified type (3) Colitis Assessment/Plan: Continue Asacol HD 800mg PO TID for now Code(s): K52.9 - NONINFECTIVE GASTROENTERITIS AND COLITIS, UNSPECIFIED (4) Esophageal varices Assessment/Plan: Continue beta laura as tolerated. goal is 25% reduction of heart rate or HR 55 as tolerated If cannot tolerate beta blockers, will need repeat banding sessions for variceal ablation Code(s): I85.00 - ESOPHAGEAL VARICES WITHOUT BLEEDING
== END 2018-01-16 18:25 | disposition home health service (06) | DRG 279 ==
LOC: JER 06:14 → JERBED 10:17 → J4S 18:00
PROVIDERS: ADMIT Internal Medicine; ATTEND Hospitalist
DX: K72.90 Hepatic failure, unspecified without coma (principal); K70.30 Alcoholic cirrhosis of liver without ascites; I85.00 Esophageal varices without bleeding; K92.2 Gastrointestinal hemorrhage, unspecified; F32.9 Major depressive disorder, single episode, unspecified; K76.6 Portal hypertension; B19.20 Unspecified viral hepatitis C without hepatic coma; K52.9 Noninfective gastroenteritis and colitis, unspecified; K29.60 Other gastritis without bleeding; K31.89 Other diseases of stomach and duodenum; F10.20 Alcohol dependence, uncomplicated; D50.9 Iron deficiency anemia, unspecified; Z88.0 Allergy status to penicillin
CPT/HCPCS: 36415; 70450-TC; 71045-TC-FY; 76700-TC; 80053; 80307; 82105; 82140; 82272; 82550; 82553; 82728; 82962; 83540; 83550; 83735; 84100; 84443; 84484; 85025; 85027; 85044; 85610; 86140; 87040; 87086; 93005; 93010; 97116-GP; 97161-GP; 99285-25; J1644